=== PATIENT | male | born 1950 | race African-American/Black ===

== ENCOUNTER 2018-08-29 16:40 | Inpatient (IN) | payer MEDICARE, OTHER ==
[~2018-08-29] VITALS: Ht 180.3 cm; Wt 83.9 kg
[2018-08-29] MEDS ORDERED: ASPIRIN 325 MG TABLET PO ONE (17:00)
[2018-08-29 17:21] LABS: BASO % 1 % (0-3); EOS % 0 % (0-3); HEMATOCRIT 39.8 % (39.0-53.0); HEMOGLOBIN 13.5 g/dL (13.0-17.5); LYMPH # 1.3 x10^3/uL (1.0-4.8); LYMPH % 18 % (24-48); MEAN CORPUSCULAR HEMOGLOBIN 31 pg (25-35); MEAN CORPUSCULAR HGB CONC 34 g/dL (31-37); MEAN CORPUSCULAR VOLUME 93 fL (79-100); MONO # 0.5 x10^3/uL (0.0-1.1); MONO % 7 % (0-9); NEUT # 5.5 x10^3uL (1.8-7.7); NEUT % 75 % (31-73); PLATELET COUNT 163 x10^3/uL (140-400); RED CELL DISTRIBUTION WIDTH 14.3 % (11.5-14.5); WHITE BLOOD COUNT 7.3 x10^3/uL (4.0-11.0)
[2018-08-29 17:26] LABS: PROTHROMBIN TIME PATIENT 13.1 SEC (11.7-14.0)
--- NOTE | 2018-08-29 17:27 | RAD ---
CT HEAD WO CONTRAST Indication: WEAKNESS NO PREV RECENT PNA Exposure: One or more of the following individualized dose reduction techniques were utilized for this examination: 1. Automated exposure control 2. Adjustment of the mA and/or kV according to patient size 3. Use of iterative reconstruction technique. Comparison: None are available. Contrast: None FINDINGS: Posterior fossa is unremarkable. No evidence of acute intracranial hemorrhage or abnormal extra-axial fluid collection. No evidence of mass effect or midline shift. Extensive areas of hypoattenuation in the deep and subcortical white matter bilaterally. There are some more well-defined defects within the deep white matter, likely chronic lacunar infarcts. Mild generalized atrophic change with ventricular and sulcal enlargement. Visualized orbits are unremarkable. Visualized paranasal sinuses and mastoids are clear. No acute calvarial abnormality. Impression: 1. Atrophy. 2. White matter abnormalities bilaterally, nonspecific but most commonly are due to chronic small vessel ischemic disease in a patient of this age. Demyelinating disorder or vasculitis could also be considered. Electronically signed by: Marcos Pino MD (08/29/2018 5:23 PM) [facility]
[2018-08-29 17:37] LABS: CALCIUM 9.7 mg/dL (8.5-10.1); CREATININE 1.6 mg/dL (0.7-1.3); GFR 52.3; POTASSIUM 3.9 mmol/L (3.5-5.1)
[2018-08-29 17:37] LABS: INFLUENZA A PATIENT NEGATIVE (NEGATIVE); INFLUENZA B PATIENT NEGATIVE (NEGATIVE)
--- NOTE | 2018-08-29 17:45 | RAD ---
PROCEDURE: PORTABLE CHEST 1V CLINICAL INDICATION: ER PATIENT. WEAKNESS X2 DAYS. HX DIABETES. PRIOR XRAY. COMPARISON: None FINDINGS: No pneumothorax identified. Cardiac and mediastinal contours unremarkable. No pulmonary consolidation or acute airspace disease. No acute osseous abnormalities identified. IMPRESSION: No pulmonary consolidation or acute airspace disease. Electronically signed by: Glenn Rodriguez DO (08/29/2018 5:41 PM) [facility]
[2018-08-29 17:51] LABS: ALBUMIN 4.1 g/dL (3.4-5.0); ALBUMIN/GLOBULIN RATIO 1.3 (1.0-1.7); MAGNESIUM 1.8 mg/dL (1.8-2.4); TOTAL BILIRUBIN 0.8 mg/dL (0.2-1.0); TOTAL PROTEIN 7.3 g/dL (6.4-8.2)
[2018-08-29] MEDS ORDERED: FAMOTIDINE 20 MG/2 ML VIAL IVP ONE (18:30)
[2018-08-29] MEDS ORDERED: IV NORMAL SALINE 1000ML BAG 1,000 ML IV ONE ×2 (19:30→21:00)
--- NOTE | 2018-08-29 20:26 | PHYS DOC ---
Past Medical History Past Medical History: Diabetes-Type II, Pneumonia Past Surgical History: Other Additional Past Surgical Histo: UNKNOWN Alcohol Use: None Drug Use: None Adult General Chief Complaint Chief Complaint: WEAKNESS/GENERALIZED HPI HPI Patient is a 68 year old female with history of hypertension who presents today from home to be evaluated for generalized weakness for 2 days. Patient himself states he does not know why his son sent him to the emergency room. Son is not present. Patient states he was taking a shower and was not able to get out of the shower by himself and the son called 911. Patient appears slow in his speech, he states this is his normal. He is alert and oriented 4. EMS states patient was treated for pneumonia a couple weeks ago. Review of Systems Review of Systems Constitutional: Reports generalized weakness. Denies fever or chills [] Eyes: Denies change in visual acuity, redness, or eye pain [] HENT: Denies nasal congestion or sore throat [] Respiratory: Denies cough or shortness of breath [] Cardiovascular: No additional information not addressed in HPI [] GI: Denies abdominal pain, nausea, vomiting, bloody stools or diarrhea [] : Denies dysuria or hematuria [] Musculoskeletal: Denies back pain or joint pain [] Integument: Denies rash or skin lesions [] Neurologic: Denies headache, focal weakness or sensory changes [] All other systems were reviewed and found to be within normal limits, except as documented in this note. Current Medications Current Medications Current Medications Medications (Trade) Dose Ordered Sig/[facility] Start Time Stop Time Status Last Admin Dose Admin Aspirin (Yuliya Aspirin) 325 mg 1X ONCE 08/29/18 17:00 08/29/18 17:14 DC 08/29/18 18:01 325 MG Famotidine (Pepcid Vial) 20 mg 1X ONCE 08/29/18 18:30 08/29/18 18:31 DC 08/29/18 18:39 20 MG Allergies Allergies Allergies Coded Allergies Type Severity Reaction Last Updated Verified Penicillins Allergy Intermediate 08/29/18 Yes Physical Exam Physical Exam Constitutional: Well developed, well nourished, no acute distress, non-toxic appearance. [] HENT: Normocephalic, atraumatic, bilateral external ears normal, oropharynx moist, no oral exudates, nose normal. [] Eyes: PERRLA, EOMI, conjunctiva normal, no discharge. [] Neck: Normal range of motion, no tenderness, supple, no stridor. [] Cardiovascular:Heart rate regular rhythm, no murmur [] Lungs & Thorax: Bilateral breath sounds clear to auscultation [] Abdomen: Bowel sounds normal, soft, no tenderness, no masses, no pulsatile masses. [] Skin: Warm, dry, no erythema, no rash. [] Back: No tenderness, no CVA tenderness. [] Extremities: No tenderness, no cyanosis, no clubbing, ROM intact, no edema. [] Neurologic: Alert and oriented X 3, normal motor function, normal sensory function, no focal deficits noted. Cranial nerves II through XII intact Psychologic: Affect normal, judgement normal, mood normal. [] Current Patient Data Vital Signs Vital Signs Date Time Temp Pulse Resp B/P (MAP) Pulse Ox O2 Delivery O2 Flow Rate FiO2 08/29/18 18:00 84 16 97 08/29/18 16:43 97.4 120/61 (80) Room Air 97.4 Lab Values Laboratory Tests Test 08/29/18 16:54 08/29/18 16:57 White Blood Count 7.3 x10^3/uL (4.0-11.0) Red Blood Count 4.30 x10^6/uL (4.30-5.70) Hemoglobin 13.5 g/dL (13.0-17.5) Hematocrit 39.8 % (39.0-53.0) Mean Corpuscular Volume 93 fL (79-100) Mean Corpuscular Hemoglobin 31 pg (25-35) Mean Corpuscular Hemoglobin Concent 34 g/dL (31-37) Red Cell Distribution Width 14.3 % (11.5-14.5) Platelet Count 163 x10^3/uL (140-400) Neutrophils (%) (Auto) 75 % (31-73) H Lymphocytes (%) (Auto) 18 % (24-48) L Monocytes (%) (Auto) 7 % (0-9) Eosinophils (%) (Auto) 0 % (0-3) Basophils (%) (Auto) 1 % (0-3) Neutrophils # (Auto) 5.5 x10^3uL (1.8-7.7) Lymphocytes # (Auto) 1.3 x10^3/uL (1.0-4.8) Monocytes # (Auto) 0.5 x10^3/uL (0.0-1.1) Eosinophils # (Auto) 0.0 x10^3/uL (0.0-0.7) Basophils # (Auto) 0.0 x10^3/uL (0.0-0.2) Prothrombin Time 13.1 SEC (11.7-14.0) Prothrombin Time INR 1.0 (0.8-1.1) PTT 25 SEC (24-38) Sodium Level 140 mmol/L (136-145) Potassium Level 3.9 mmol/L (3.5-5.1) Chloride Level 100 mmol/L (98-107) Carbon Dioxide Level 27 mmol/L (21-32) Anion Gap 13 (6-14) Blood Urea Nitrogen 22 mg/dL (8-26) Creatinine 1.6 mg/dL (0.7-1.3) H Estimated GFR (Cockcroft-Gault) 52.3 BUN/Creatinine Ratio 14 (6-20) Glucose Level 237 mg/dL (70-99) H Lactic Acid Level 2.9 mmol/L (0.4-2.0) H Calcium Level 9.7 mg/dL (8.5-10.1) Magnesium Level 1.8 mg/dL (1.8-2.4) Total Bilirubin 0.8 mg/dL (0.2-1.0) Aspartate Amino Transferase (AST) 16 U/L (15-37) Alanine Aminotransferase (ALT) 34 U/L (16-63) Alkaline Phosphatase 125 U/L (46-116) H Troponin I Quantitative < 0.017 ng/mL (0.000-0.055) ND-Equ-T-Type Natriuretic Peptide 41 pg/mL (0-124) Total Protein 7.3 g/dL (6.4-8.2) Albumin 4.1 g/dL (3.4-5.0) Albumin/Globulin Ratio 1.3 (1.0-1.7) Procalcitonin < 0.10 ng/mL (0.00-0.10) Thyroid Stimulating Hormone (TSH) 0.772 uIU/mL (0.358-3.74) Influenza Type A Antigen Negative (NEGATIVE) Influenza Type B Antigen Negative (NEGATIVE) Laboratory Tests 08/29/18 16:54 Laboratory Tests 08/29/18 16:54 EKG EKG 17:[address] Mendez was noted for nonspecific ST elevations HR 84. Repeat EKG was done 20 minutes later, same results. Patient has no chest pain.[] Radiology/Procedures Radiology/Procedures []PROCEDURE: PORTABLE CHEST 1V PROCEDURE: PORTABLE CHEST 1V CLINICAL INDICATION: ER PATIENT. WEAKNESS X2 DAYS. HX DIABETES. PRIOR XRAY. COMPARISON: None FINDINGS: No pneumothorax identified. Cardiac and mediastinal contours unremarkable. No pulmonary consolidation or acute airspace disease. No acute osseous abnormalities identified. IMPRESSION: No pulmonary consolidation or acute airspace disease. Electronically signed by: Glenn Rodriguez DO (08/29/2018 5:41 PM) [employer] DICTATED and SIGNED BY: GLENN RODRIGUEZ DO DATE: 08/29/18 1738 PROCEDURE: CT HEAD WO CONTRAST CT HEAD WO CONTRAST Indication: WEAKNESS NO PREV RECENT PNA Exposure: One or more of the following individualized dose reduction techniques were utilized for this examination: 1. Automated exposure control 2. Adjustment of the mA and/or kV according to patient size 3. Use of iterative reconstruction technique. Comparison: None are available. Contrast: None FINDINGS: Posterior fossa is unremarkable. No evidence of acute intracranial hemorrhage or abnormal extra-axial fluid collection. No evidence of mass effect or midline shift. Extensive areas of hypoattenuation in the deep and subcortical white matter bilaterally. There are some more well-defined defects within the deep white matter, likely chronic lacunar infarcts. Mild generalized atrophic change with ventricular and sulcal enlargement. Visualized orbits are unremarkable. Visualized paranasal sinuses and mastoids are clear. No acute calvarial abnormality. Impression: 1. Atrophy. 2. White matter abnormalities bilaterally, nonspecific but most commonly are due to chronic small vessel ischemic disease in a patient of this age. Demyelinating disorder or vasculitis could also be considered. Electronically signed by: Marcos Pino MD (08/29/2018 5:23 PM) [facility] DICTATED and SIGNED BY: MARCOS PINO MD DATE: 08/29/18 5215 Course & Med Decision Making Course & Med Decision Making Pertinent Labs and Imaging studies reviewed. (See chart for details) This is a 68-year-old male patient presenting to the ED today complaining of generalized weakness for 2 days. Patient was sent to the ED by the son. See history of present illness. Patient himself states he has no complaints. EKG had nonspecific ST elevations. No reciprocal changes. Patient has not chest pain. No shortness of breath. CBC with no acute findings, CMP with creatinine of 1.6 normal BUN, glucose 237, patient has history of diabetes. Troponin is normal. Chest x-rays negative for any acute findings. Lactic is 2.9. I do not have any source for his elevated lactic, it could be dehydration. Started patient on IV fluids but being careful not to fluid overload him considering we do not know his baseline creatinine level. CT of the head is negative for any acute findings. Patient has remained alert and oriented son came to the ED later, he states patient has been weak for the last [address] vo who accepted patient for admission. Staff Physician Addendum: I was working in the ER during the course of this patient's visit. I was available for consultation as needed, but I was not directly involved in the care of this patient. reviewed 2 ekg's that are unchanged and trop neg after two days of symptoms. Dragon Disclaimer Dragon Disclaimer This electronic medical record was generated, in whole or in part, using a voice recognition dictation system. Departure Departure Impression: Primary Impression: Weakness Additional Impression: Acute electrocardiogram changes Disposition: 09 ADMITTED INPATIENT Condition: STABLE Referrals: UNKNOWN PCP NAME (PCP) Problem Qualifiers NADIR BURCH APRN Aug 29, 2018 20:26 RYAN MENDEZ MD Aug 30, 2018 07:02
[2018-08-29] MEDS ORDERED: MORPHINE SULFATE 4 MG/ML VIAL. IV PRN (20:30)
[2018-08-29] MEDS ORDERED: ONDANSETRON PF 4 MG/2 ML VIAL. IV PRN (20:30)
[2018-08-29] MEDS ORDERED: ACETAMINOPHEN 325 MG TABLET. PO PRN (20:30)
[2018-08-29 20:45] VITALS: BP 143/73
--- NOTE | 2018-08-29 22:03 | PDOC1 ---
History and Physical Date of Admission Date of Admission DATE: 08/29/18 TIME: 21:57 History of Present Illness History of Present Illness Mr. Forte is a 68 admit with marked weakness, difficulty walkign, amdit from home today, came to be evaluated for generalized weakness for 2 days. He lives with his son, and he had trouble getting out of the shower. he reports having PNA recently, and then having a cold, then he just cant turn the corner and feel better. still weakness He is alittle confused as to some of the details, not sure but is oriented 4/4 Past Medical History GI: No pertinent hx, Other Hepatobiliary: No pertinent hx Psych: No pertinent hx, Other Musculoskeletal: low back pain Rheumatologic: No pertinent hx Family History Family History: Hypertension Social History Smoke: No Current Problem List Problem List Problems Medical Problems: (1) Acute electrocardiogram changes Status: Acute Current Medications Current Medications Current Medications Aspirin (Yuliya Aspirin) 325 mg 1X ONCE PO Last administered on 08/29/18at 18: 01; Start 08/29/18 at 17:00; Stop 08/29/18 at 17:14; Status DC Famotidine (Pepcid Vial) 20 mg 1X ONCE IVP Last administered on 08/29/18at 18: 39; Start 08/29/18 at 18:30; Stop 08/29/18 at 18:31; Status DC Sodium Chloride 1,000 ml @ 1,000 mls/hr 1X ONCE IV Last administered on 08/29at 19:30; Start 08/29/18 at 19:30; Stop 08/29/18 at 20:29; Status DC Ondansetron HCl (Zofran) 4 mg PRN Q8HRS PRN IV NAUSEA/VOMITING; Start at 20:30; Stop 08/30/18 at 20:29 Morphine Sulfate (Morphine Sulfate) 2 mg PRN Q2HR PRN IV PAIN; Start 08/29/18 at 20:30; Stop 08/30/18 at 20:29 Acetaminophen (Tylenol) 650 mg PRN Q4HRS PRN PO FEVER; Start 08/29/18 at 20:30 ; Stop 08/30/18 at 20:29 Sodium Chloride 1,000 ml @ 100 mls/hr 1X ONCE IV ; Start 08/29/18 at 21:00; Stop 08/30/18 at 06:59 Ciprofloxacin/ Dextrose 200 ml @ 200 mls/hr Q12HR IV ; Start 08/29/18 at 21:00 Allergies Allergies: Coded Allergies: Penicillins (Verified Allergy, Intermediate, 08/29/18) ROS General: YES: Chills, Fatigue, Malaise, Appetite PSYCHOLOGICAL ROS: YES: Memory difficulties, Sleep disturbances Eyes: No Blurry vision, No Decreased vision, No Double vision, No Dry eyes, No Excessive tearing, No Eye Pain, No Itchy Eyes, No Loss of vision, No Photophobia , No Scotomata, No Uses contacts, No Uses glasses, No Other HEENT: No: Heacaches, Visual Changes, Hearing change, Nasal congestion, Nasal discharge, Oral lesions, Sinus pain, Sore Throat, Epistaxis, Sneezing, Snoring, Tinnitus, Vertigo, Vocal changes, Other Respiratory: No: Cough, Hemoptysis, Orthopnea, Pleuritic Pain, Shortness of breath, SOB with excertion, Sputum Changes, Stridor, Tachypnea, Wheezing, Other Cardiovascular: No Chest Pain, No Palpitations, No Orthopnea, No Paroxysmal Noc. Dyspnea, No Edema, No Lt Headedness, No Other Gastrointestinal: Yes Nausea; No Vomiting, No Abdominal Pain, No Diarrhea, No Constipation, No Melena, No Hematochezia, No Other Genitourinary: No Dysuria, No Frequency, No Incontinence, No Hematuria, No Retention, No Discharge, No Urgency, No Pain, No Flank Pain, No Other, No , No , No , No , No , No , No Musculoskeletal: Yes Joint Stiffness; No Gait Disturbance, No Joint Pain, No Joint Swelling, No Muscle Pain, No Muscular Weakness, No Pain In:, No Swelling In:, No Other Neurological: Yes Gait Disturbance, Yes Impaired Coord/balance, Yes Weakness; No Behavorial Changes, No Bowel/Bladder ControlChng, No Confusion, No Dizziness, No Headaches, No Memory Loss, No Numbness/Tingling, No Seizures, No Speech Problems, No Tremors, No Visual Changes, No Other Skin: Yes Dry Skin; No Eczema, No Hair Changes, No Lumps, No Mole Changes, No Mottling, No Nail Changes, No Pruritus, No Rash, No Skin Lesion Changes, No Other, No Acne Physical Exam Physical Exam freq. hiccoughs General: Alert, No acute distress HEENT: Mucous membr. moist/pink Lungs: Clear to auscultation Heart: no gallops Abdomen: Normal bowel sounds, Soft Rectal Exam: not examined Extremities: No clubbing, No edema Skin: No rashes, No significant lesion Neuro: Sensation intact Vitals Vitals Vital Signs Date Time Temp Pulse Resp B/P (MAP) Pulse Ox O2 Delivery O2 Flow Rate FiO2 08/29/18 20:45 98.7 86 20 143/73 (96) 98 Room Air 98.7 Labs Labs Laboratory Tests Test 08/29/18 16:54 08/29/18 16:57 08/29/18 20:44 08/29/18 21:05 White Blood Count 7.3 x10^3/uL (4.0-11.0) Red Blood Count 4.30 x10^6/uL (4.30-5.70) Hemoglobin 13.5 g/dL (13.0-17.5) Hematocrit 39.8 % (39.0-53.0) Mean Corpuscular Volume 93 fL (79-100) Mean Corpuscular Hemoglobin 31 pg (25-35) Mean Corpuscular Hemoglobin Concent 34 g/dL (31-37) Red Cell Distribution Width 14.3 % (11.5-14.5) Platelet Count 163 x10^3/uL (140-400) Neutrophils (%) (Auto) 75 % (31-73) Lymphocytes (%) (Auto) 18 % (24-48) Monocytes (%) (Auto) 7 % (0-9) Eosinophils (%) (Auto) 0 % (0-3) Basophils (%) (Auto) 1 % (0-3) Neutrophils # (Auto) 5.5 x10^3uL (1.8-7.7) Lymphocytes # (Auto) 1.3 x10^3/uL (1.0-4.8) Monocytes # (Auto) 0.5 x10^3/uL (0.0-1.1) Eosinophils # (Auto) 0.0 x10^3/uL (0.0-0.7) Basophils # (Auto) 0.0 x10^3/uL (0.0-0.2) Prothrombin Time 13.1 SEC (11.7-14.0) Prothromb Time International Ratio 1.0 (0.8-1.1) Activated Partial Thromboplast Time 25 SEC (24-38) Sodium Level 140 mmol/L (136-145) Potassium Level 3.9 mmol/L (3.5-5.1) Chloride Level 100 mmol/L (98-107) Carbon Dioxide Level 27 mmol/L (21-32) Anion Gap 13 (6-14) Blood Urea Nitrogen 22 mg/dL (8-26) Creatinine 1.6 mg/dL (0.7-1.3) Estimated GFR (Cockcroft-Gault) 52.3 BUN/Creatinine Ratio 14 (6-20) Glucose Level 237 mg/dL (70-99) Lactic Acid Level 2.9 mmol/L (0.4-2.0) 2.6 mmol/L (0.4-2.0) Calcium Level 9.7 mg/dL (8.5-10.1) Magnesium Level 1.8 mg/dL (1.8-2.4) Total Bilirubin 0.8 mg/dL (0.2-1.0) Aspartate Amino Transf (AST/SGOT) 16 U/L (15-37) Alanine Aminotransferase (ALT/SGPT) 34 U/L (16-63) Alkaline Phosphatase 125 U/L (46-116) Troponin I Quantitative < 0.017 ng/mL (0.000-0.055) FP-Vjy-L-Type Natriuretic Peptide 41 pg/mL (0-124) Total Protein 7.3 g/dL (6.4-8.2) Albumin 4.1 g/dL (3.4-5.0) Albumin/Globulin Ratio 1.3 (1.0-1.7) Procalcitonin < 0.10 ng/mL (0.00-0.10) Thyroid Stimulating Hormone (TSH) 0.772 uIU/mL (0.358-3.74) Influenza Type A Antigen Negative (NEGATIVE) Influenza Type B Antigen Negative (NEGATIVE) Glucose (Fingerstick) 141 mg/dL (70-99) Laboratory Tests Test 08/29/18 16:54 08/29/18 16:57 08/29/18 20:44 08/29/18 21:05 White Blood Count 7.3 x10^3/uL (4.0-11.0) Red Blood Count 4.30 x10^6/uL (4.30-5.70) Hemoglobin 13.5 g/dL (13.0-17.5) Hematocrit 39.8 % (39.0-53.0) Mean Corpuscular Volume 93 fL (79-100) Mean Corpuscular Hemoglobin 31 pg (25-35) Mean Corpuscular Hemoglobin Concent 34 g/dL (31-37) Red Cell Distribution Width 14.3 % (11.5-14.5) Platelet Count 163 x10^3/uL (140-400) Neutrophils (%) (Auto) 75 % (31-73) Lymphocytes (%) (Auto) 18 % (24-48) Monocytes (%) (Auto) 7 % (0-9) Eosinophils (%) (Auto) 0 % (0-3) Basophils (%) (Auto) 1 % (0-3) Neutrophils # (Auto) 5.5 x10^3uL (1.8-7.7) Lymphocytes # (Auto) 1.3 x10^3/uL (1.0-4.8) Monocytes # (Auto) 0.5 x10^3/uL (0.0-1.1) Eosinophils # (Auto) 0.0 x10^3/uL (0.0-0.7) Basophils # (Auto) 0.0 x10^3/uL (0.0-0.2) Prothrombin Time 13.1 SEC (11.7-14.0) Prothromb Time International Ratio 1.0 (0.8-1.1) Activated Partial Thromboplast Time 25 SEC (24-38) Sodium Level 140 mmol/L (136-145) Potassium Level 3.9 mmol/L (3.5-5.1) Chloride Level 100 mmol/L (98-107) Carbon Dioxide Level 27 mmol/L (21-32) Anion Gap 13 (6-14) Blood Urea Nitrogen 22 mg/dL (8-26) Creatinine 1.6 mg/dL (0.7-1.3) Estimated GFR (Cockcroft-Gault) 52.3 BUN/Creatinine Ratio 14 (6-20) Glucose Level 237 mg/dL (70-99) Lactic Acid Level 2.9 mmol/L (0.4-2.0) 2.6 mmol/L (0.4-2.0) Calcium Level 9.7 mg/dL (8.5-10.1) Magnesium Level 1.8 mg/dL (1.8-2.4) Total Bilirubin 0.8 mg/dL (0.2-1.0) Aspartate Amino Transf (AST/SGOT) 16 U/L (15-37) Alanine Aminotransferase (ALT/SGPT) 34 U/L (16-63) Alkaline Phosphatase 125 U/L (46-116) Troponin I Quantitative < 0.017 ng/mL (0.000-0.055) HF-Wbj-X-Type Natriuretic Peptide 41 pg/mL (0-124) Total Protein 7.3 g/dL (6.4-8.2) Albumin 4.1 g/dL (3.4-5.0) Albumin/Globulin Ratio 1.3 (1.0-1.7) Procalcitonin < 0.10 ng/mL (0.00-0.10) Thyroid Stimulating Hormone (TSH) 0.772 uIU/mL (0.358-3.74) Influenza Type A Antigen Negative (NEGATIVE) Influenza Type B Antigen Negative (NEGATIVE) Glucose (Fingerstick) 141 mg/dL (70-99) VTE Prophylaxis Ordered VTE Prophylaxis Devices: No VTE Pharmacological Prophylaxi: Yes Assessment/Plan Assessment/Plan weakness, and debility, recent illness, prior PNA hiccough, intractable, every few seconds PT and OT eval lactic? seizure? no pain, no sign of SIRS supportive care ALLISON KRUSE MD Aug 29, 2018 22:03
[2018-08-29] MEDS: chlorproMAZINE 25 MG TABLET PO PRN (22:21)
[2018-08-29] MEDS: CIPROFLOXACIN 400MG PREMIX 200 ML IV SCH (22:23)
[2018-08-29] MEDS: ENOXAPARIN 40 MG/0.4 ML SYRINGE. SQ SCH (22:26)
--- NOTE | 2018-08-29 22:43 | EKG ---
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
--- NOTE | 2018-08-29 22:43 | EKG ---
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
[2018-08-29] MEDS ORDERED: METF10007 PO (22:48)
[2018-08-29] MEDS ORDERED: ASPI81TA50 PO (22:48)
[2018-08-29 23:13] VITALS: BP 147/73
[2018-08-30] VITALS (7 sets, daily range): BP systolic 112–159; BP diastolic 61–90
[2018-08-30 01:02] LABS: BASO % 0 % (0-3); EOS % 0 % (0-3); HEMATOCRIT 35.7 % (39.0-53.0); HEMOGLOBIN 12.3 g/dL (13.0-17.5); LYMPH # 1.2 x10^3/uL (1.0-4.8); LYMPH % 14 % (24-48); MEAN CORPUSCULAR HEMOGLOBIN 32 pg (25-35); MEAN CORPUSCULAR HGB CONC 34 g/dL (31-37); MEAN CORPUSCULAR VOLUME 92 fL (79-100); MONO # 0.8 x10^3/uL (0.0-1.1); MONO % 9 % (0-9); NEUT # 6.7 x10^3uL (1.8-7.7); NEUT % 77 % (31-73); PLATELET COUNT 144 x10^3/uL (140-400); RED BLOOD COUNT 3.87 x10^6/uL (4.30-5.70); RED CELL DISTRIBUTION WIDTH 13.8 % (11.5-14.5); WHITE BLOOD COUNT 8.6 x10^3/uL (4.0-11.0)
[2018-08-30 01:08] LABS: ALBUMIN 3.2 g/dL (3.4-5.0); CALCIUM 8.8 mg/dL (8.5-10.1); CREATININE 1.3 mg/dL (0.7-1.3); GFR 66.4; POTASSIUM 3.6 mmol/L (3.5-5.1); TOTAL BILIRUBIN 0.6 mg/dL (0.2-1.0); TOTAL PROTEIN 6.3 g/dL (6.4-8.2)
[2018-08-30] MEDS: CIPROFLOXACIN 400MG PREMIX 200 ML IV SCH ×2 (08:04→21:27)
[2018-08-30] MEDS ORDERED: LIPITOR80 MG PO (08:35)
[2018-08-30] MEDS ORDERED: GLIP10TA13 PO (08:35)
--- NOTE | 2018-08-30 12:33 | PDOC2 ---
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 He does not known why his son sent him to ED, It was noted that he was slow in his speech no notation of any visual disturbances or unilateral weakness. The son is in room and confirmed that pt was in the shower got dizzy and fell with no traumatic injury. No lost of consciousness but appears pt has poor recall. He lives with his sone. No cp, palpitations or complains of SOA. Reports no prior hx of CAD, arrhythmias. He has in in 03/2018 where he was treated for pneumonia and was told that he may have had a stroke in the past. He is on ASA, lipitor and DM med. No notation of hypoglycemia when he had the presyncopal episode. He does not take any BP meds but his BP has been controlled. His hydration adequacy could not be ascertained. No nausea or vomiting or diarrhea and no recent fever or chills. PAST MEDICAL HISTORY Cardiovascular: Hyperlipidemia Pulmonary: Pneumonia CENTRAL NERVOUS SYSTEM: CVA GI: No pertinent hx Heme/Onc: No pertinent hx Hepatobiliary: No pertinent hx Psych: No pertinent hx Musculoskeletal: Osteoarthritis Rheumatologic: No pertinent hx Infectious disease: No pertinent hx ENT: No pertinent hx Renal/: No pertinent hx Endocrine: Diabetes (2) PAST SURGICAL HISTORY Past Surgical History: Cataract Removal FAMILY HISTORY Family History noncontributory to CV SOCIAL HISTORY Smoke: Quit (remotely) ALCOHOL: none Drugs: None Lives: with Family CURRENT MEDICATIONS CURRENT MEDICATIONS Current Medications Medications (Trade) Dose Ordered Sig/Jayant Route PRN Reason Start Time Stop Time Status Last Admin Dose Admin Aspirin (Yuliya Aspirin) 325 mg 1X ONCE PO 08/29/18 17:00 08/29/18 17:14 DC 08/29/18 18:01 Famotidine (Pepcid Vial) 20 mg 1X ONCE IVP 08/29/18 18:30 08/29/18 18:31 DC 08/29/18 18:39 Sodium Chloride 1,000 ml @ 1,000 mls/hr 1X ONCE IV 08/29/18 19:30 08/29/18 20:29 DC 08/29/18 19:30 Sodium Chloride 1,000 ml @ 100 mls/hr 1X ONCE IV 08/29/18 21:00 08/30/18 06:59 DC 08/29/18 22:21 Ciprofloxacin/ Dextrose 200 ml @ 200 mls/hr Q12HR IV 08/29/18 21:00 08/30/18 08:04 Chlorpromazine HCl (Thorazine) 25 mg PRN Q6HRS PRN PO HICCUPS 08/29/18 22:00 08/29/18 22:21 Enoxaparin Sodium (Lovenox 40mg Syringe) 40 mg Q24H SQ 08/29/18 22:00 08/29/18 22:26 ALLERGIES ALLERGIES: Coded Allergies: Penicillins (Verified Allergy, Intermediate, 08/29/18) ROS Review of System limited poor historian PHYSICAL EXAM General: Alert, Oriented X3, Cooperative, No acute distress HEENT: Atraumatic, Mucous membr. moist/pink Lungs: Clear to auscultation, Normal air movement Heart: Regular rate (S), Normal S1, Normal S2, Other (3/6 systolic murmur to LLS border) Abdomen: Soft, No tenderness Extremities: No cyanosis, No edema Skin: No breakdown, No significant lesion Neuro: Normal speech, Sensation intact Psych/Mental Status: Mental status NL, Mood NL MUSCULOSKELETAL: Osteoarthritic changes both hands VITALS VITALS Vital Signs Date Time Temp Pulse Resp B/P (MAP) Pulse Ox O2 Delivery O2 Flow Rate FiO2 08/30/18 07:29 Room Air 08/30/18 07:00 98.7 79 16 133/66 (88) 95 98.7 LABS Lab: Laboratory Tests Test 08/29/18 16:54 08/29/18 16:57 08/29/18 20:44 08/29/18 21:05 White Blood Count 7.3 x10^3/uL (4.0-11.0) Red Blood Count 4.30 x10^6/uL (4.30-5.70) Hemoglobin 13.5 g/dL (13.0-17.5) Hematocrit 39.8 % (39.0-53.0) Mean Corpuscular Volume 93 fL (79-100) Mean Corpuscular Hemoglobin 31 pg (25-35) Mean Corpuscular Hemoglobin Concent 34 g/dL (31-37) Red Cell Distribution Width 14.3 % (11.5-14.5) Platelet Count 163 x10^3/uL (140-400) Neutrophils (%) (Auto) 75 % (31-73) Lymphocytes (%) (Auto) 18 % (24-48) Monocytes (%) (Auto) 7 % (0-9) Eosinophils (%) (Auto) 0 % (0-3) Basophils (%) (Auto) 1 % (0-3) Neutrophils # (Auto) 5.5 x10^3uL (1.8-7.7) Lymphocytes # (Auto) 1.3 x10^3/uL (1.0-4.8) Monocytes # (Auto) 0.5 x10^3/uL (0.0-1.1) Eosinophils # (Auto) 0.0 x10^3/uL (0.0-0.7) Basophils # (Auto) 0.0 x10^3/uL (0.0-0.2) Prothrombin Time 13.1 SEC (11.7-14.0) Prothromb Time International Ratio 1.0 (0.8-1.1) Activated Partial Thromboplast Time 25 SEC (24-38) Sodium Level 140 mmol/L (136-145) Potassium Level 3.9 mmol/L (3.5-5.1) Chloride Level 100 mmol/L (98-107) Carbon Dioxide Level 27 mmol/L (21-32) Anion Gap 13 (6-14) Blood Urea Nitrogen 22 mg/dL (8-26) Creatinine 1.6 mg/dL (0.7-1.3) Estimated GFR (Cockcroft-Gault) 52.3 BUN/Creatinine Ratio 14 (6-20) Glucose Level 237 mg/dL (70-99) Lactic Acid Level 2.9 mmol/L (0.4-2.0) 2.6 mmol/L (0.4-2.0) Calcium Level 9.7 mg/dL (8.5-10.1) Magnesium Level 1.8 mg/dL (1.8-2.4) Total Bilirubin 0.8 mg/dL (0.2-1.0) Aspartate Amino Transf (AST/SGOT) 16 U/L (15-37) Alanine Aminotransferase (ALT/SGPT) 34 U/L (16-63) Alkaline Phosphatase 125 U/L (46-116) Troponin I Quantitative < 0.017 ng/mL (0.000-0.055) FN-Mqg-A-Type Natriuretic Peptide 41 pg/mL (0-124) Total Protein 7.3 g/dL (6.4-8.2) Albumin 4.1 g/dL (3.4-5.0) Albumin/Globulin Ratio 1.3 (1.0-1.7) Procalcitonin < 0.10 ng/mL (0.00-0.10) Thyroid Stimulating Hormone (TSH) 0.772 uIU/mL (0.358-3.74) Influenza Type A Antigen Negative (NEGATIVE) Influenza Type B Antigen Negative (NEGATIVE) Glucose (Fingerstick) 141 mg/dL (70-99) Test 08/30/18 00:45 08/30/18 07:23 08/30/18 11:58 White Blood Count 8.6 x10^3/uL (4.0-11.0) Red Blood Count 3.87 x10^6/uL (4.30-5.70) Hemoglobin 12.3 g/dL (13.0-17.5) Hematocrit 35.7 % (39.0-53.0) Mean Corpuscular Volume 92 fL (79-100) Mean Corpuscular Hemoglobin 32 pg (25-35) Mean Corpuscular Hemoglobin Concent 34 g/dL (31-37) Red Cell Distribution Width 13.8 % (11.5-14.5) Platelet Count 144 x10^3/uL (140-400) Neutrophils (%) (Auto) 77 % (31-73) Lymphocytes (%) (Auto) 14 % (24-48) Monocytes (%) (Auto) 9 % (0-9) Eosinophils (%) (Auto) 0 % (0-3) Basophils (%) (Auto) 0 % (0-3) Neutrophils # (Auto) 6.7 x10^3uL (1.8-7.7) Lymphocytes # (Auto) 1.2 x10^3/uL (1.0-4.8) Monocytes # (Auto) 0.8 x10^3/uL (0.0-1.1) Eosinophils # (Auto) 0.0 x10^3/uL (0.0-0.7) Basophils # (Auto) 0.0 x10^3/uL (0.0-0.2) Sodium Level 140 mmol/L (136-145) Potassium Level 3.6 mmol/L (3.5-5.1) Chloride Level 104 mmol/L (98-107) Carbon Dioxide Level 27 mmol/L (21-32) Anion Gap 9 (6-14) Blood Urea Nitrogen 21 mg/dL (8-26) Creatinine 1.3 mg/dL (0.7-1.3) Estimated GFR (Cockcroft-Gault) 66.4 BUN/Creatinine Ratio 16 (6-20) Glucose Level 154 mg/dL (70-99) Lactic Acid Level 1.4 mmol/L (0.4-2.0) Calcium Level 8.8 mg/dL (8.5-10.1) Total Bilirubin 0.6 mg/dL (0.2-1.0) Aspartate Amino Transf (AST/SGOT) 13 U/L (15-37) Alanine Aminotransferase (ALT/SGPT) 28 U/L (16-63) Alkaline Phosphatase 103 U/L (46-116) Total Protein 6.3 g/dL (6.4-8.2) Albumin 3.2 g/dL (3.4-5.0) Albumin/Globulin Ratio 1.0 (1.0-1.7) Glucose (Fingerstick) 115 mg/dL (70-99) 159 mg/dL (70-99) ASSESSMENT/PLAN ASSESSMENT/PLAN 1. Abnormal EKG: SR with LVH/LAFB, no cardiac symptoms. 2. PSVT: x1 brief episode otherwise maintain SR with good BP control without antiHTN 3. Presyncope with nontraumatic fall: could be related to poor hydration or arrhythmia. 4. DM2: per PCP 5. Possible dementia 6. Hx of CVA Recommendations 1. Will obtain TTE for completion otherwise no acute cardiac issues. 2. Will arrange for outpt event monitor and will ascertain any rhythm issues 3. Follow up in office in 4 weeks 4. Maintain hydration adequacy. Check orthostatic readings. Check UA. CALIXTO SILVA MD 08/30/18 7917: CARDIAC CONSULT ASSESSMENT/PLAN ASSESSMENT/PLAN Patient seen and examined. Agree with CARD MAKER's assessment and plan. EKG showed sinus rhythm with LVH 2D echo showed normal LV function Agree with outpatient event monitor to rule out any significant arrhythmias Thank you for your consultation ELIZA FRANCIS APRN Aug 30, 2018 12:33 CALIXTO SILVA MD Aug 30, 2018 22:07
--- NOTE | 2018-08-30 13:13 | PDOC ---
PROGRESS NOTES Chief Complaint Chief Complaint Weakness, and debility, recent illness, prior PNA Hiccough, intractable, every few seconds Abnormal EKG: SR with LVH/LAFB, no cardiac symptoms. PSVT: x1 brief episode otherwise maintain SR with good BP control without antiHTN Presyncope with nontraumatic fall: could be related to poor hydration or arrhythmia. DM2: per PCP Possible dementia Hx of CVA History of Present Illness History of Present Illness Pt seen and examined with PT and RN and son Vitals Vitals Vital Signs Date Time Temp Pulse Resp B/P (MAP) Pulse Ox O2 Delivery O2 Flow Rate FiO2 08/30/18 07:29 Room Air 08/30/18 07:00 98.7 79 16 133/66 (88) 95 98.7 Physical Exam General: Cooperative, No acute distress, Other (weak) Heart: Regular rate (S), Normal S1, Normal S2, Other (3/6 systolic murmur to LLS border) Lungs: Clear Abdomen: Soft, No tenderness Extremities: No cyanosis, No edema Skin: No breakdown, No significant lesion Labs LABS Laboratory Tests Test 08/29/18 16:54 08/29/18 16:57 08/29/18 20:44 08/29/18 21:05 White Blood Count 7.3 x10^3/uL (4.0-11.0) Red Blood Count 4.30 x10^6/uL (4.30-5.70) Hemoglobin 13.5 g/dL (13.0-17.5) Hematocrit 39.8 % (39.0-53.0) Mean Corpuscular Volume 93 fL (79-100) Mean Corpuscular Hemoglobin 31 pg (25-35) Mean Corpuscular Hemoglobin Concent 34 g/dL (31-37) Red Cell Distribution Width 14.3 % (11.5-14.5) Platelet Count 163 x10^3/uL (140-400) Neutrophils (%) (Auto) 75 % (31-73) Lymphocytes (%) (Auto) 18 % (24-48) Monocytes (%) (Auto) 7 % (0-9) Eosinophils (%) (Auto) 0 % (0-3) Basophils (%) (Auto) 1 % (0-3) Neutrophils # (Auto) 5.5 x10^3uL (1.8-7.7) Lymphocytes # (Auto) 1.3 x10^3/uL (1.0-4.8) Monocytes # (Auto) 0.5 x10^3/uL (0.0-1.1) Eosinophils # (Auto) 0.0 x10^3/uL (0.0-0.7) Basophils # (Auto) 0.0 x10^3/uL (0.0-0.2) Prothrombin Time 13.1 SEC (11.7-14.0) Prothromb Time International Ratio 1.0 (0.8-1.1) Activated Partial Thromboplast Time 25 SEC (24-38) Sodium Level 140 mmol/L (136-145) Potassium Level 3.9 mmol/L (3.5-5.1) Chloride Level 100 mmol/L (98-107) Carbon Dioxide Level 27 mmol/L (21-32) Anion Gap 13 (6-14) Blood Urea Nitrogen 22 mg/dL (8-26) Creatinine 1.6 mg/dL (0.7-1.3) Estimated GFR (Cockcroft-Gault) 52.3 BUN/Creatinine Ratio 14 (6-20) Glucose Level 237 mg/dL (70-99) Lactic Acid Level 2.9 mmol/L (0.4-2.0) 2.6 mmol/L (0.4-2.0) Calcium Level 9.7 mg/dL (8.5-10.1) Magnesium Level 1.8 mg/dL (1.8-2.4) Total Bilirubin 0.8 mg/dL (0.2-1.0) Aspartate Amino Transf (AST/SGOT) 16 U/L (15-37) Alanine Aminotransferase (ALT/SGPT) 34 U/L (16-63) Alkaline Phosphatase 125 U/L (46-116) Troponin I Quantitative < 0.017 ng/mL (0.000-0.055) XV-Whk-Q-Type Natriuretic Peptide 41 pg/mL (0-124) Total Protein 7.3 g/dL (6.4-8.2) Albumin 4.1 g/dL (3.4-5.0) Albumin/Globulin Ratio 1.3 (1.0-1.7) Procalcitonin < 0.10 ng/mL (0.00-0.10) Thyroid Stimulating Hormone (TSH) 0.772 uIU/mL (0.358-3.74) Influenza Type A Antigen Negative (NEGATIVE) Influenza Type B Antigen Negative (NEGATIVE) Glucose (Fingerstick) 141 mg/dL (70-99) Test 08/30/18 00:45 08/30/18 07:23 08/30/18 11:58 White Blood Count 8.6 x10^3/uL (4.0-11.0) Red Blood Count 3.87 x10^6/uL (4.30-5.70) Hemoglobin 12.3 g/dL (13.0-17.5) Hematocrit 35.7 % (39.0-53.0) Mean Corpuscular Volume 92 fL (79-100) Mean Corpuscular Hemoglobin 32 pg (25-35) Mean Corpuscular Hemoglobin Concent 34 g/dL (31-37) Red Cell Distribution Width 13.8 % (11.5-14.5) Platelet Count 144 x10^3/uL (140-400) Neutrophils (%) (Auto) 77 % (31-73) Lymphocytes (%) (Auto) 14 % (24-48) Monocytes (%) (Auto) 9 % (0-9) Eosinophils (%) (Auto) 0 % (0-3) Basophils (%) (Auto) 0 % (0-3) Neutrophils # (Auto) 6.7 x10^3uL (1.8-7.7) Lymphocytes # (Auto) 1.2 x10^3/uL (1.0-4.8) Monocytes # (Auto) 0.8 x10^3/uL (0.0-1.1) Eosinophils # (Auto) 0.0 x10^3/uL (0.0-0.7) Basophils # (Auto) 0.0 x10^3/uL (0.0-0.2) Sodium Level 140 mmol/L (136-145) Potassium Level 3.6 mmol/L (3.5-5.1) Chloride Level 104 mmol/L (98-107) Carbon Dioxide Level 27 mmol/L (21-32) Anion Gap 9 (6-14) Blood Urea Nitrogen 21 mg/dL (8-26) Creatinine 1.3 mg/dL (0.7-1.3) Estimated GFR (Cockcroft-Gault) 66.4 BUN/Creatinine Ratio 16 (6-20) Glucose Level 154 mg/dL (70-99) Lactic Acid Level 1.4 mmol/L (0.4-2.0) Calcium Level 8.8 mg/dL (8.5-10.1) Total Bilirubin 0.6 mg/dL (0.2-1.0) Aspartate Amino Transf (AST/SGOT) 13 U/L (15-37) Alanine Aminotransferase (ALT/SGPT) 28 U/L (16-63) Alkaline Phosphatase 103 U/L (46-116) Total Protein 6.3 g/dL (6.4-8.2) Albumin 3.2 g/dL (3.4-5.0) Albumin/Globulin Ratio 1.0 (1.0-1.7) Glucose (Fingerstick) 115 mg/dL (70-99) 159 mg/dL (70-99) Review of Systems Review of Systems co weakness co decreased memory Assessment and Plan Assessmemt and Plan Problems Medical Problems: (1) Acute electrocardiogram changes Status: Acute Weakness, and debility, recent illness, prior PNA Hiccough, intractable, every few seconds Abnormal EKG: SR with LVH/LAFB, no cardiac symptoms. PSVT: x1 brief episode otherwise maintain SR with good BP control without antiHTN Presyncope with nontraumatic fall: could be related to poor hydration or arrhythmia. DM2: per PCP Possible dementia Hx of CVA Plan Neuro consult SNU eval Labs Home meds PTOT Cardio following Needs LTC? Comment Review of Relevant I have reviewed the following items jessica (where applicable) has been applied. Labs Laboratory Tests Test 08/29/18 16:54 08/29/18 16:57 08/29/18 20:44 08/29/18 21:05 White Blood Count 7.3 x10^3/uL (4.0-11.0) Red Blood Count 4.30 x10^6/uL (4.30-5.70) Hemoglobin 13.5 g/dL (13.0-17.5) Hematocrit 39.8 % (39.0-53.0) Mean Corpuscular Volume 93 fL (79-100) Mean Corpuscular Hemoglobin 31 pg (25-35) Mean Corpuscular Hemoglobin Concent 34 g/dL (31-37) Red Cell Distribution Width 14.3 % (11.5-14.5) Platelet Count 163 x10^3/uL (140-400) Neutrophils (%) (Auto) 75 % (31-73) Lymphocytes (%) (Auto) 18 % (24-48) Monocytes (%) (Auto) 7 % (0-9) Eosinophils (%) (Auto) 0 % (0-3) Basophils (%) (Auto) 1 % (0-3) Neutrophils # (Auto) 5.5 x10^3uL (1.8-7.7) Lymphocytes # (Auto) 1.3 x10^3/uL (1.0-4.8) Monocytes # (Auto) 0.5 x10^3/uL (0.0-1.1) Eosinophils # (Auto) 0.0 x10^3/uL (0.0-0.7) Basophils # (Auto) 0.0 x10^3/uL (0.0-0.2) Prothrombin Time 13.1 SEC (11.7-14.0) Prothromb Time International Ratio 1.0 (0.8-1.1) Activated Partial Thromboplast Time 25 SEC (24-38) Sodium Level 140 mmol/L (136-145) Potassium Level 3.9 mmol/L (3.5-5.1) Chloride Level 100 mmol/L (98-107) Carbon Dioxide Level 27 mmol/L (21-32) Anion Gap 13 (6-14) Blood Urea Nitrogen 22 mg/dL (8-26) Creatinine 1.6 mg/dL (0.7-1.3) Estimated GFR (Cockcroft-Gault) 52.3 BUN/Creatinine Ratio 14 (6-20) Glucose Level 237 mg/dL (70-99) Lactic Acid Level 2.9 mmol/L (0.4-2.0) 2.6 mmol/L (0.4-2.0) Calcium Level 9.7 mg/dL (8.5-10.1) Magnesium Level 1.8 mg/dL (1.8-2.4) Total Bilirubin 0.8 mg/dL (0.2-1.0) Aspartate Amino Transf (AST/SGOT) 16 U/L (15-37) Alanine Aminotransferase (ALT/SGPT) 34 U/L (16-63) Alkaline Phosphatase 125 U/L (46-116) Troponin I Quantitative < 0.017 ng/mL (0.000-0.055) NM-Wfz-Z-Type Natriuretic Peptide 41 pg/mL (0-124) Total Protein 7.3 g/dL (6.4-8.2) Albumin 4.1 g/dL (3.4-5.0) Albumin/Globulin Ratio 1.3 (1.0-1.7) Procalcitonin < 0.10 ng/mL (0.00-0.10) Thyroid Stimulating Hormone (TSH) 0.772 uIU/mL (0.358-3.74) Influenza Type A Antigen Negative (NEGATIVE) Influenza Type B Antigen Negative (NEGATIVE) Glucose (Fingerstick) 141 mg/dL (70-99) Test 08/30/18 00:45 08/30/18 07:23 08/30/18 11:58 White Blood Count 8.6 x10^3/uL (4.0-11.0) Red Blood Count 3.87 x10^6/uL (4.30-5.70) Hemoglobin 12.3 g/dL (13.0-17.5) Hematocrit 35.7 % (39.0-53.0) Mean Corpuscular Volume 92 fL (79-100) Mean Corpuscular Hemoglobin 32 pg (25-35) Mean Corpuscular Hemoglobin Concent 34 g/dL (31-37) Red Cell Distribution Width 13.8 % (11.5-14.5) Platelet Count 144 x10^3/uL (140-400) Neutrophils (%) (Auto) 77 % (31-73) Lymphocytes (%) (Auto) 14 % (24-48) Monocytes (%) (Auto) 9 % (0-9) Eosinophils (%) (Auto) 0 % (0-3) Basophils (%) (Auto) 0 % (0-3) Neutrophils # (Auto) 6.7 x10^3uL (1.8-7.7) Lymphocytes # (Auto) 1.2 x10^3/uL (1.0-4.8) Monocytes # (Auto) 0.8 x10^3/uL (0.0-1.1) Eosinophils # (Auto) 0.0 x10^3/uL (0.0-0.7) Basophils # (Auto) 0.0 x10^3/uL (0.0-0.2) Sodium Level 140 mmol/L (136-145) Potassium Level 3.6 mmol/L (3.5-5.1) Chloride Level 104 mmol/L (98-107) Carbon Dioxide Level 27 mmol/L (21-32) Anion Gap 9 (6-14) Blood Urea Nitrogen 21 mg/dL (8-26) Creatinine 1.3 mg/dL (0.7-1.3) Estimated GFR (Cockcroft-Gault) 66.4 BUN/Creatinine Ratio 16 (6-20) Glucose Level 154 mg/dL (70-99) Lactic Acid Level 1.4 mmol/L (0.4-2.0) Calcium Level 8.8 mg/dL (8.5-10.1) Total Bilirubin 0.6 mg/dL (0.2-1.0) Aspartate Amino Transf (AST/SGOT) 13 U/L (15-37) Alanine Aminotransferase (ALT/SGPT) 28 U/L (16-63) Alkaline Phosphatase 103 U/L (46-116) Total Protein 6.3 g/dL (6.4-8.2) Albumin 3.2 g/dL (3.4-5.0) Albumin/Globulin Ratio 1.0 (1.0-1.7) Glucose (Fingerstick) 115 mg/dL (70-99) 159 mg/dL (70-99) Laboratory Tests Test 08/29/18 16:54 08/29/18 16:57 08/29/18 20:44 08/29/18 21:05 White Blood Count 7.3 x10^3/uL (4.0-11.0) Red Blood Count 4.30 x10^6/uL (4.30-5.70) Hemoglobin 13.5 g/dL (13.0-17.5) Hematocrit 39.8 % (39.0-53.0) Mean Corpuscular Volume 93 fL (79-100) Mean Corpuscular Hemoglobin 31 pg (25-35) Mean Corpuscular Hemoglobin Concent 34 g/dL (31-37) Red Cell Distribution Width 14.3 % (11.5-14.5) Platelet Count 163 x10^3/uL (140-400) Neutrophils (%) (Auto) 75 % (31-73) Lymphocytes (%) (Auto) 18 % (24-48) Monocytes (%) (Auto) 7 % (0-9) Eosinophils (%) (Auto) 0 % (0-3) Basophils (%) (Auto) 1 % (0-3) Neutrophils # (Auto) 5.5 x10^3uL (1.8-7.7) Lymphocytes # (Auto) 1.3 x10^3/uL (1.0-4.8) Monocytes # (Auto) 0.5 x10^3/uL (0.0-1.1) Eosinophils # (Auto) 0.0 x10^3/uL (0.0-0.7) Basophils # (Auto) 0.0 x10^3/uL (0.0-0.2) Prothrombin Time 13.1 SEC (11.7-14.0) Prothromb Time International Ratio 1.0 (0.8-1.1) Activated Partial Thromboplast Time 25 SEC (24-38) Sodium Level 140 mmol/L (136-145) Potassium Level 3.9 mmol/L (3.5-5.1) Chloride Level 100 mmol/L (98-107) Carbon Dioxide Level 27 mmol/L (21-32) Anion Gap 13 (6-14) Blood Urea Nitrogen 22 mg/dL (8-26) Creatinine 1.6 mg/dL (0.7-1.3) Estimated GFR (Cockcroft-Gault) 52.3 BUN/Creatinine Ratio 14 (6-20) Glucose Level 237 mg/dL (70-99) Lactic Acid Level 2.9 mmol/L (0.4-2.0) 2.6 mmol/L (0.4-2.0) Calcium Level 9.7 mg/dL (8.5-10.1) Magnesium Level 1.8 mg/dL (1.8-2.4) Total Bilirubin 0.8 mg/dL (0.2-1.0) Aspartate Amino Transf (AST/SGOT) 16 U/L (15-37) Alanine Aminotransferase (ALT/SGPT) 34 U/L (16-63) Alkaline Phosphatase 125 U/L (46-116) Troponin I Quantitative < 0.017 ng/mL (0.000-0.055) EC-Wuv-F-Type Natriuretic Peptide 41 pg/mL (0-124) Total Protein 7.3 g/dL (6.4-8.2) Albumin 4.1 g/dL (3.4-5.0) Albumin/Globulin Ratio 1.3 (1.0-1.7) Procalcitonin < 0.10 ng/mL (0.00-0.10) Thyroid Stimulating Hormone (TSH) 0.772 uIU/mL (0.358-3.74) Influenza Type A Antigen Negative (NEGATIVE) Influenza Type B Antigen Negative (NEGATIVE) Glucose (Fingerstick) 141 mg/dL (70-99) Test 08/30/18 00:45 08/30/18 07:23 08/30/18 11:58 White Blood Count 8.6 x10^3/uL (4.0-11.0) Red Blood Count 3.87 x10^6/uL (4.30-5.70) Hemoglobin 12.3 g/dL (13.0-17.5) Hematocrit 35.7 % (39.0-53.0) Mean Corpuscular Volume 92 fL (79-100) Mean Corpuscular Hemoglobin 32 pg (25-35) Mean Corpuscular Hemoglobin Concent 34 g/dL (31-37) Red Cell Distribution Width 13.8 % (11.5-14.5) Platelet Count 144 x10^3/uL (140-400) Neutrophils (%) (Auto) 77 % (31-73) Lymphocytes (%) (Auto) 14 % (24-48) Monocytes (%) (Auto) 9 % (0-9) Eosinophils (%) (Auto) 0 % (0-3) Basophils (%) (Auto) 0 % (0-3) Neutrophils # (Auto) 6.7 x10^3uL (1.8-7.7) Lymphocytes # (Auto) 1.2 x10^3/uL (1.0-4.8) Monocytes # (Auto) 0.8 x10^3/uL (0.0-1.1) Eosinophils # (Auto) 0.0 x10^3/uL (0.0-0.7) Basophils # (Auto) 0.0 x10^3/uL (0.0-0.2) Sodium Level 140 mmol/L (136-145) Potassium Level 3.6 mmol/L (3.5-5.1) Chloride Level 104 mmol/L (98-107) Carbon Dioxide Level 27 mmol/L (21-32) Anion Gap 9 (6-14) Blood Urea Nitrogen 21 mg/dL (8-26) Creatinine 1.3 mg/dL (0.7-1.3) Estimated GFR (Cockcroft-Gault) 66.4 BUN/Creatinine Ratio 16 (6-20) Glucose Level 154 mg/dL (70-99) Lactic Acid Level 1.4 mmol/L (0.4-2.0) Calcium Level 8.8 mg/dL (8.5-10.1) Total Bilirubin 0.6 mg/dL (0.2-1.0) Aspartate Amino Transf (AST/SGOT) 13 U/L (15-37) Alanine Aminotransferase (ALT/SGPT) 28 U/L (16-63) Alkaline Phosphatase 103 U/L (46-116) Total Protein 6.3 g/dL (6.4-8.2) Albumin 3.2 g/dL (3.4-5.0) Albumin/Globulin Ratio 1.0 (1.0-1.7) Glucose (Fingerstick) 115 mg/dL (70-99) 159 mg/dL (70-99) Medications Current Medications Aspirin (Yuliya Aspirin) 325 mg 1X ONCE PO Last administered on 08/29/18at 18: 01; Start 08/29/18 at 17:00; Stop 08/29/18 at 17:14; Status DC Famotidine (Pepcid Vial) 20 mg 1X ONCE IVP Last administered on 08/29/18at 18: 39; Start 08/29/18 at 18:30; Stop 08/29/18 at 18:31; Status DC Sodium Chloride 1,000 ml @ 1,000 mls/hr 1X ONCE IV Last administered on 08/29at 19:30; Start 08/29/18 at 19:30; Stop 08/29/18 at 20:29; Status DC Ondansetron HCl (Zofran) 4 mg PRN Q8HRS PRN IV NAUSEA/VOMITING; Start at 20:30; Stop 08/30/18 at 20:29 Morphine Sulfate (Morphine Sulfate) 2 mg PRN Q2HR PRN IV PAIN; Start 08/29/18 at 20:30; Stop 08/30/18 at 20:29 Acetaminophen (Tylenol) 650 mg PRN Q4HRS PRN PO FEVER; Start 08/29/18 at 20:30 ; Stop 08/30/18 at 20:29 Sodium Chloride 1,000 ml @ 100 mls/hr 1X ONCE IV Last administered on at 22:21; Start 08/29/18 at 21:00; Stop 08/30/18 at 06:59; Status DC Ciprofloxacin/ Dextrose 200 ml @ 200 mls/hr Q12HR IV Last administered on at 08:04; Start 08/29/18 at 21:00 Chlorpromazine HCl (Thorazine) 25 mg PRN Q6HRS PRN PO HICCUPS Last administered on 08/29/18at 22:21; Start 08/29/18 at 22:00 Enoxaparin Sodium (Lovenox Per Pharmacy Prophylaxis Dosing) 1 each PRN DAILY PRN MC SEE COMMENTS; Start 08/29/18 at 22:00 Enoxaparin Sodium (Lovenox 40mg Syringe) 40 mg Q24H SQ Last administered on 09/04at 22:26; Start 08/29/18 at 22:00 Active Scripts Active Reported Lipitor (Atorvastatin Calcium) 80 Mg Tablet 1 Tab PO HS Glipizide 10 Mg Tablet 1 Tab PO BID Metformin Hcl 1,000 Mg Tablet 1,000 Mg PO BIDWMEALS Aspir-Low (Aspirin) 81 Mg Tablet.dr 1 Tab PO DAILY Vitals/I & O Vital Sign - Last 24 Hours 08/29/18 08/29/18 08/29/18 08/29/18 16:43 17:00 17:30 18:00 Temp 97.4 97.4 Pulse 86 84 82 84 Resp 16 18 18 16 B/P (MAP) 120/61 (80) Pulse Ox 97 97 98 97 O2 Delivery Room Air 08/29/18 08/29/18 08/29/18 08/29/18 19:45 20:24 20:45 21:00 Temp 98.7 98.7 Pulse 89 89 86 Resp 18 18 20 B/P (MAP) 143/73 (96) Pulse Ox 96 94 98 O2 Delivery Room Air Room Air 08/29/18 08/30/18 08/30/18 08/30/18 23:13 03:53 07:00 07:29 Temp 98.6 98.6 98.7 98.6 98.6 98.7 Pulse 88 95 79 Resp 18 16 16 B/P (MAP) 147/73 (97) 112/62 (79) 133/66 (88) Pulse Ox 96 94 95 O2 Delivery Room Air Room Air Room Air Room Air Intake and Output 08/29/18 08/29/18 08/30/18 15:00 23:00 07:00 Intake Total 620 ml Output Total 250 ml Balance 370 ml ANITA JONES III DO Aug 30, 2018 13:13
--- NOTE | 2018-08-30 13:39 | CARD ---
MR#: [id number] Date of Study: 08/30/2018 Ordering Physician: ELIZA FRANCIS, Referring Physician: ALLISON KRUSE, Tech: Randi Benz APPROVED REPORT EXAM: Two-dimensional and M-mode echocardiogram with Doppler and color Doppler. Other Information Quality : GoodHR: 83bpm INDICATION Syncope 2D DIMENSIONS RVDd2.6 (2.9-3.5cm)Left Atrium(2D)3.1 (1.6-4.0cm) IVSd1.3 (0.7-1.1cm)Aortic Root(2D)3.6 (2.0-3.7cm) LVDd4.3 (3.9-5.9cm)LVOT Diameter2.2 (1.8-2.4cm) PWd1.1 (0.7-1.1cm)LVDs2.7 (2.5-4.0cm) FS (%) 38.4 %SV58.5 ml LVEF(%)69.0 (>50%) Aortic Valve AoV Peak Josue.159.7cm/sAoV VTI28.8cm AO Peak GR.10.2mmHgLVOT Peak Josue.115.0cm/s LVOT VTI 21.76cmAO Mean GR.5mmHg MIKEY (VMAX)1.53pg3JTH (VTI)2.83cm2 Mitral Valve MV E Xigwukgi91.0cm/sMV DECEL [id number] MV A Yshsywyb96.8cm/sMV ENH150on E/A Ratio0.7MVA (PHT)2.18cm2 TDI E/Lateral E'6.4E/Medial E'8.3 Pulmonary Valve PV Peak Ggqrbwbr942.3cm/sPV Peak Grad.9mmHg Pulmonary Vein S1 Ogeobptg87.3cm/sD2 Rqlcqguw99.5cm/s PVa [id number] LEFT VENTRICLE The left ventricle is normal size. There is mild concentric left ventricular hypertrophy. The left ve ntricular systolic function is normal and the ejection fraction is within normal range. The Ejection Fraction is >55%. Septal motion consistent with post-operative state, otherwise, there is normal LV s egmental wall motion. Transmitral Doppler flow pattern is Grade I-abnormal relaxation pattern. RIGHT VENTRICLE The right ventricle is normal size. There is normal right ventricular wall thickness. The right ventr icular systolic function is normal. ATRIA The left atrium size is normal. The right atrium size is normal. The interatrial septum is intact wit h no evidence for an atrial septal defect or patent foramen ovale as noted on 2-D or Doppler imaging. AORTIC VALVE Functional bicuspid aortic valve with fusion of the right and left cusps. Doppler and Color Flow reve aled no significant aortic regurgitation. There is no significant aortic valvular stenosis. MITRAL VALVE The mitral valve is normal in structure and function. There is no evidence of mitral valve prolapse. There is no mitral valve stenosis. Doppler and Color-flow revealed trace mitral regurgitation. TRICUSPID VALVE The tricuspid valve is not well visualized. Doppler and Color Flow revealed trace tricuspid regurgita tion. There is no tricuspid valve stenosis. PULMONIC VALVE The pulmonic valve is not well visualized. Doppler and Color Flow revealed trace pulmonic valvular re gurgitation. There is no pulmonic valvular stenosis. GREAT VESSELS The aortic root is normal in size. The IVC was not visualized. PERICARDIAL EFFUSION There is no evidence of significant pericardial effusion. Critical Notification Critical Value: No <Conclusion> The left ventricular systolic function is normal and the ejection fraction is within normal range. Th e Ejection Fraction is >55%. Septal motion consistent with post-operative state, otherwise, there is normal LV segmental wall howie on. Functional bicuspid aortic valve with fusion of the right and left cusps. There is no significant aortic valvular stenosis. Signed by : Arron Nguyen, Electronically Approved : 08/30/2018 13:37:42
[2018-08-30] MEDS: ASPIRIN ENTERIC COATED 81 MG TABLET.DR. PO SCH (15:54)
[2018-08-30] MEDS: glipiZIDE 5 MG TABLET PO SCH (15:54)
[2018-08-30] MEDS: metFORMIN 500 MG TABLET PO SCH (15:54)
--- NOTE | 2018-08-30 16:56 | PDOC2 ---
NEUROLOGY CONSULT Date of Admission Date of Admission DATE: 08/30/18 TIME: 16:48 Reason for Consult Reason for Consult: Parkinson's Referring Physician Referring Physician: Dr. Thompson Source Source: Chart review, Patient History of Present Illness History of Present Illness The patient is a 68-year-old right-handed male admitted with some generalized weakness. I am asked to see him for Parkinson's. The patient, nurses, and notes do not describe any tremor, rigidity, lack of facial expression, bradykinesia, but the patient does have a gait disorder. He does have long-standing diabetes. He has been living with his son. He knows of no history of stroke, but stroke is listed in the chart. Past Medical History Cardiovascular: HTN, Hyperlipidemia Pulmonary: Pneumonia Endocrine: Diabetes Past Surgical History Past Surgical History: No pertinent history Family History Family History: No pertinent hx Social History Social History , lives with son, no alcohol or tobacco Current Medications Current Medications Current Medications Aspirin (Yuliya Aspirin) 325 mg 1X ONCE PO Last administered on 08/29/18at 18: 01; Start 08/29/18 at 17:00; Stop 08/29/18 at 17:14; Status DC Famotidine (Pepcid Vial) 20 mg 1X ONCE IVP Last administered on 08/29/18at 18: 39; Start 08/29/18 at 18:30; Stop 08/29/18 at 18:31; Status DC Sodium Chloride 1,000 ml @ 1,000 mls/hr 1X ONCE IV Last administered on 08/29at 19:30; Start 08/29/18 at 19:30; Stop 08/29/18 at 20:29; Status DC Ondansetron HCl (Zofran) 4 mg PRN Q8HRS PRN IV NAUSEA/VOMITING; Start at 20:30; Stop 08/30/18 at 20:29 Morphine Sulfate (Morphine Sulfate) 2 mg PRN Q2HR PRN IV PAIN; Start 08/29/18 at 20:30; Stop 08/30/18 at 20:29 Acetaminophen (Tylenol) 650 mg PRN Q4HRS PRN PO FEVER; Start 08/29/18 at 20:30 ; Stop 08/30/18 at 20:29 Sodium Chloride 1,000 ml @ 100 mls/hr 1X ONCE IV Last administered on at 22:21; Start 08/29/18 at 21:00; Stop 08/30/18 at 06:59; Status DC Ciprofloxacin/ Dextrose 200 ml @ 200 mls/hr Q12HR IV Last administered on at 08:04; Start 08/29/18 at 21:00 Chlorpromazine HCl (Thorazine) 25 mg PRN Q6HRS PRN PO HICCUPS Last administered on 08/29/18at 22:21; Start 08/29/18 at 22:00 Enoxaparin Sodium (Lovenox Per Pharmacy Prophylaxis Dosing) 1 each PRN DAILY PRN MC SEE COMMENTS; Start 08/29/18 at 22:00 Enoxaparin Sodium (Lovenox 40mg Syringe) 40 mg Q24H SQ Last administered on 09/04at 22:26; Start 08/29/18 at 22:00 Aspirin (Ecotrin) 81 mg DAILY PO Last administered on 08/30/18at 15:54; Start 08/30/18 at 15:00 Atorvastatin Calcium (Lipitor) 80 mg QHS PO ; Start 08/30/18 at 21:00 Glipizide (Glucotrol) 10 mg BIDBFRMEAL PO Last administered on 08/30/18at 15:54 ; Start 08/30/18 at 16:30 Metformin HCl (Glucophage) 1,000 mg BIDWMEALS PO Last administered on at 15:54; Start 08/30/18 at 17:00 Lactobacillus Rhamnosus (Culturelle) 1 cap BID PO ; Start 08/30/18 at 21:00 Active Scripts Active Reported Lipitor (Atorvastatin Calcium) 80 Mg Tablet 1 Tab PO HS Glipizide 10 Mg Tablet 1 Tab PO BID Metformin Hcl 1,000 Mg Tablet 1,000 Mg PO BIDWMEALS Aspir-Low (Aspirin) 81 Mg Tablet.dr 1 Tab PO DAILY Allergies Allergies: Coded Allergies: Penicillins (Verified Allergy, Intermediate, 08/29/18) ROS Review of System Negative for fever, chills, weight loss, shortness of breath, chest pain, indigestion, hematochezia, melena, and dysuria. Full 14-point review of systems is negative. Physical Exam Physical Examination General: Well-developed, well-nourished, white male, in no acute distress HEENT: Normocephalic andatraumatic. Tympanic membranes clear.Temporal arteries pulsatile and nontender.Fundoscopic exam unremarkable Neck: Supple without bruit, no meningismus Musculoskeletal: Stability:see neurologic. Gait exam:see neurologic. Tone:see neurologic. Strength:see neurologic. Neurological: Mental Status:orientation, memory, attention span/concentration, language, fund of knowledge: he knows the name of the hospital but not the date and is a very poor historian. Cranial Nerves:Pupils equal and reactive to light, extraocular movements areintact, visual blakely are full to confrontation. Facial sensation is normal. There is no facial asymmetry. Vestibulo-ocular reflex is intact. Palate elevates and tongue protrudes in midline. All other cranial related problems are negative except as mentioned before.Reflexes:0+ and symmetric with flexor plantar responses. Motor:4/5 strength with normal tone and bulk. Coordination:Finger-nose finger and mhec-kh-aitm testing are normal. Rapid alternating movements and fine finger movements are intact. No attributes of Parkinson's. Gait:apraxic. Sensory:stocking loss. Vitals VITALS Vital Signs Date Time Temp Pulse Resp B/P (MAP) Pulse Ox O2 Delivery O2 Flow Rate FiO2 08/30/18 15:00 98.2 74 20 123/65 (84) 97 Room Air 98.2 Labs Labs Laboratory Tests Test 08/29/18 16:54 08/29/18 16:57 08/29/18 20:44 08/29/18 21:05 White Blood Count 7.3 x10^3/uL (4.0-11.0) Red Blood Count 4.30 x10^6/uL (4.30-5.70) Hemoglobin 13.5 g/dL (13.0-17.5) Hematocrit 39.8 % (39.0-53.0) Mean Corpuscular Volume 93 fL (79-100) Mean Corpuscular Hemoglobin 31 pg (25-35) Mean Corpuscular Hemoglobin Concent 34 g/dL (31-37) Red Cell Distribution Width 14.3 % (11.5-14.5) Platelet Count 163 x10^3/uL (140-400) Neutrophils (%) (Auto) 75 % (31-73) Lymphocytes (%) (Auto) 18 % (24-48) Monocytes (%) (Auto) 7 % (0-9) Eosinophils (%) (Auto) 0 % (0-3) Basophils (%) (Auto) 1 % (0-3) Neutrophils # (Auto) 5.5 x10^3uL (1.8-7.7) Lymphocytes # (Auto) 1.3 x10^3/uL (1.0-4.8) Monocytes # (Auto) 0.5 x10^3/uL (0.0-1.1) Eosinophils # (Auto) 0.0 x10^3/uL (0.0-0.7) Basophils # (Auto) 0.0 x10^3/uL (0.0-0.2) Prothrombin Time 13.1 SEC (11.7-14.0) Prothromb Time International Ratio 1.0 (0.8-1.1) Activated Partial Thromboplast Time 25 SEC (24-38) Sodium Level 140 mmol/L (136-145) Potassium Level 3.9 mmol/L (3.5-5.1) Chloride Level 100 mmol/L (98-107) Carbon Dioxide Level 27 mmol/L (21-32) Anion Gap 13 (6-14) Blood Urea Nitrogen 22 mg/dL (8-26) Creatinine 1.6 mg/dL (0.7-1.3) Estimated GFR (Cockcroft-Gault) 52.3 BUN/Creatinine Ratio 14 (6-20) Glucose Level 237 mg/dL (70-99) Lactic Acid Level 2.9 mmol/L (0.4-2.0) 2.6 mmol/L (0.4-2.0) Calcium Level 9.7 mg/dL (8.5-10.1) Magnesium Level 1.8 mg/dL (1.8-2.4) Total Bilirubin 0.8 mg/dL (0.2-1.0) Aspartate Amino Transf (AST/SGOT) 16 U/L (15-37) Alanine Aminotransferase (ALT/SGPT) 34 U/L (16-63) Alkaline Phosphatase 125 U/L (46-116) Troponin I Quantitative < 0.017 ng/mL (0.000-0.055) VK-Boq-W-Type Natriuretic Peptide 41 pg/mL (0-124) Total Protein 7.3 g/dL (6.4-8.2) Albumin 4.1 g/dL (3.4-5.0) Albumin/Globulin Ratio 1.3 (1.0-1.7) Procalcitonin < 0.10 ng/mL (0.00-0.10) Thyroid Stimulating Hormone (TSH) 0.772 uIU/mL (0.358-3.74) Influenza Type A Antigen Negative (NEGATIVE) Influenza Type B Antigen Negative (NEGATIVE) Glucose (Fingerstick) 141 mg/dL (70-99) Test 08/30/18 00:45 08/30/18 07:23 08/30/18 11:58 White Blood Count 8.6 x10^3/uL (4.0-11.0) Red Blood Count 3.87 x10^6/uL (4.30-5.70) Hemoglobin 12.3 g/dL (13.0-17.5) Hematocrit 35.7 % (39.0-53.0) Mean Corpuscular Volume 92 fL (79-100) Mean Corpuscular Hemoglobin 32 pg (25-35) Mean Corpuscular Hemoglobin Concent 34 g/dL (31-37) Red Cell Distribution Width 13.8 % (11.5-14.5) Platelet Count 144 x10^3/uL (140-400) Neutrophils (%) (Auto) 77 % (31-73) Lymphocytes (%) (Auto) 14 % (24-48) Monocytes (%) (Auto) 9 % (0-9) Eosinophils (%) (Auto) 0 % (0-3) Basophils (%) (Auto) 0 % (0-3) Neutrophils # (Auto) 6.7 x10^3uL (1.8-7.7) Lymphocytes # (Auto) 1.2 x10^3/uL (1.0-4.8) Monocytes # (Auto) 0.8 x10^3/uL (0.0-1.1) Eosinophils # (Auto) 0.0 x10^3/uL (0.0-0.7) Basophils # (Auto) 0.0 x10^3/uL (0.0-0.2) Sodium Level 140 mmol/L (136-145) Potassium Level 3.6 mmol/L (3.5-5.1) Chloride Level 104 mmol/L (98-107) Carbon Dioxide Level 27 mmol/L (21-32) Anion Gap 9 (6-14) Blood Urea Nitrogen 21 mg/dL (8-26) Creatinine 1.3 mg/dL (0.7-1.3) Estimated GFR (Cockcroft-Gault) 66.4 BUN/Creatinine Ratio 16 (6-20) Glucose Level 154 mg/dL (70-99) Lactic Acid Level 1.4 mmol/L (0.4-2.0) Calcium Level 8.8 mg/dL (8.5-10.1) Total Bilirubin 0.6 mg/dL (0.2-1.0) Aspartate Amino Transf (AST/SGOT) 13 U/L (15-37) Alanine Aminotransferase (ALT/SGPT) 28 U/L (16-63) Alkaline Phosphatase 103 U/L (46-116) Total Protein 6.3 g/dL (6.4-8.2) Albumin 3.2 g/dL (3.4-5.0) Albumin/Globulin Ratio 1.0 (1.0-1.7) Glucose (Fingerstick) 115 mg/dL (70-99) 159 mg/dL (70-99) Laboratory Tests Test 08/29/18 16:54 08/29/18 16:57 08/29/18 20:44 08/29/18 21:05 White Blood Count 7.3 x10^3/uL (4.0-11.0) Red Blood Count 4.30 x10^6/uL (4.30-5.70) Hemoglobin 13.5 g/dL (13.0-17.5) Hematocrit 39.8 % (39.0-53.0) Mean Corpuscular Volume 93 fL (79-100) Mean Corpuscular Hemoglobin 31 pg (25-35) Mean Corpuscular Hemoglobin Concent 34 g/dL (31-37) Red Cell Distribution Width 14.3 % (11.5-14.5) Platelet Count 163 x10^3/uL (140-400) Neutrophils (%) (Auto) 75 % (31-73) Lymphocytes (%) (Auto) 18 % (24-48) Monocytes (%) (Auto) 7 % (0-9) Eosinophils (%) (Auto) 0 % (0-3) Basophils (%) (Auto) 1 % (0-3) Neutrophils # (Auto) 5.5 x10^3uL (1.8-7.7) Lymphocytes # (Auto) 1.3 x10^3/uL (1.0-4.8) Monocytes # (Auto) 0.5 x10^3/uL (0.0-1.1) Eosinophils # (Auto) 0.0 x10^3/uL (0.0-0.7) Basophils # (Auto) 0.0 x10^3/uL (0.0-0.2) Prothrombin Time 13.1 SEC (11.7-14.0) Prothromb Time International Ratio 1.0 (0.8-1.1) Activated Partial Thromboplast Time 25 SEC (24-38) Sodium Level 140 mmol/L (136-145) Potassium Level 3.9 mmol/L (3.5-5.1) Chloride Level 100 mmol/L (98-107) Carbon Dioxide Level 27 mmol/L (21-32) Anion Gap 13 (6-14) Blood Urea Nitrogen 22 mg/dL (8-26) Creatinine 1.6 mg/dL (0.7-1.3) Estimated GFR (Cockcroft-Gault) 52.3 BUN/Creatinine Ratio 14 (6-20) Glucose Level 237 mg/dL (70-99) Lactic Acid Level 2.9 mmol/L (0.4-2.0) 2.6 mmol/L (0.4-2.0) Calcium Level 9.7 mg/dL (8.5-10.1) Magnesium Level 1.8 mg/dL (1.8-2.4) Total Bilirubin 0.8 mg/dL (0.2-1.0) Aspartate Amino Transf (AST/SGOT) 16 U/L (15-37) Alanine Aminotransferase (ALT/SGPT) 34 U/L (16-63) Alkaline Phosphatase 125 U/L (46-116) Troponin I Quantitative < 0.017 ng/mL (0.000-0.055) RL-Qnz-C-Type Natriuretic Peptide 41 pg/mL (0-124) Total Protein 7.3 g/dL (6.4-8.2) Albumin 4.1 g/dL (3.4-5.0) Albumin/Globulin Ratio 1.3 (1.0-1.7) Procalcitonin < 0.10 ng/mL (0.00-0.10) Thyroid Stimulating Hormone (TSH) 0.772 uIU/mL (0.358-3.74) Influenza Type A Antigen Negative (NEGATIVE) Influenza Type B Antigen Negative (NEGATIVE) Glucose (Fingerstick) 141 mg/dL (70-99) Test 08/30/18 00:45 08/30/18 07:23 08/30/18 11:58 White Blood Count 8.6 x10^3/uL (4.0-11.0) Red Blood Count 3.87 x10^6/uL (4.30-5.70) Hemoglobin 12.3 g/dL (13.0-17.5) Hematocrit 35.7 % (39.0-53.0) Mean Corpuscular Volume 92 fL (79-100) Mean Corpuscular Hemoglobin 32 pg (25-35) Mean Corpuscular Hemoglobin Concent 34 g/dL (31-37) Red Cell Distribution Width 13.8 % (11.5-14.5) Platelet Count 144 x10^3/uL (140-400) Neutrophils (%) (Auto) 77 % (31-73) Lymphocytes (%) (Auto) 14 % (24-48) Monocytes (%) (Auto) 9 % (0-9) Eosinophils (%) (Auto) 0 % (0-3) Basophils (%) (Auto) 0 % (0-3) Neutrophils # (Auto) 6.7 x10^3uL (1.8-7.7) Lymphocytes # (Auto) 1.2 x10^3/uL (1.0-4.8) Monocytes # (Auto) 0.8 x10^3/uL (0.0-1.1) Eosinophils # (Auto) 0.0 x10^3/uL (0.0-0.7) Basophils # (Auto) 0.0 x10^3/uL (0.0-0.2) Sodium Level 140 mmol/L (136-145) Potassium Level 3.6 mmol/L (3.5-5.1) Chloride Level 104 mmol/L (98-107) Carbon Dioxide Level 27 mmol/L (21-32) Anion Gap 9 (6-14) Blood Urea Nitrogen 21 mg/dL (8-26) Creatinine 1.3 mg/dL (0.7-1.3) Estimated GFR (Cockcroft-Gault) 66.4 BUN/Creatinine Ratio 16 (6-20) Glucose Level 154 mg/dL (70-99) Lactic Acid Level 1.4 mmol/L (0.4-2.0) Calcium Level 8.8 mg/dL (8.5-10.1) Total Bilirubin 0.6 mg/dL (0.2-1.0) Aspartate Amino Transf (AST/SGOT) 13 U/L (15-37) Alanine Aminotransferase (ALT/SGPT) 28 U/L (16-63) Alkaline Phosphatase 103 U/L (46-116) Total Protein 6.3 g/dL (6.4-8.2) Albumin 3.2 g/dL (3.4-5.0) Albumin/Globulin Ratio 1.0 (1.0-1.7) Glucose (Fingerstick) 115 mg/dL (70-99) 159 mg/dL (70-99) Images Images CT head: Posterior fossa is unremarkable. No evidence of acute intracranial hemorrhage or abnormal extra-axial fluid collection. No evidence of mass effect or midline shift. Extensive areas of hypoattenuation in the deep and subcortical white matter bilaterally. There are some more well-defined defects within the deep white matter, likely chronic lacunar infarcts. Mild generalized atrophic change with ventricular and sulcal enlargement. Visualized orbits are unremarkable. Visualized paranasal sinuses and mastoids are clear. No acute calvarial abnormality. Impression: 1. Atrophy. 2. White matter abnormalities bilaterally, nonspecific but most commonly are due to chronic small vessel ischemic disease in a patient of this age. Demyelinating disorder or vasculitis could also be considered. Assessment/Plan Assessment/Plan Impression: Dementia, most likely Alzheimer's, lot other causes. 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 No evidence of Parkinson's. Cardiology seeing him for PSVT and abnormal EKG Recommendations: Additional laboratory studies regarding other causes of these conditions. Rehabilitation modalities. Most likely will need senior care unit placement. Thank you for letting me help with the patient's care. MIRI HICKMAN MD Aug 30, 2018 16:56
[2018-08-30 17:07] LABS: BILIRUBIN,URINE NEGATIVE (NEG); CLARITY,URINE CLEAR; COLOR,URINE YELLOW; NITRITE,URINE NEGATIVE (NEG); PH,URINE 5.5; PROTEIN,URINE NEGATIVE (NEG-TRACE)
[2018-08-30 17:12] LABS: BACTERIA,URINE 0 /HPF (0-FEW); RBC,URINE 0 /HPF (0-2)
[2018-08-30 17:13] LABS: WBC,URINE OCC /HPF (0-4)
[2018-08-30] MEDS: LACTOBACILLUS RHAMNOSUS GG 1 CAPSULE. PO SCH (21:27)
[2018-08-30] MEDS: ATORVASTATIN CALCIUM 40 MG TABLET. PO SCH (21:27)
[2018-08-30] MEDS: ENOXAPARIN 40 MG/0.4 ML SYRINGE. SQ SCH (21:31)
[2018-08-31 03:00] VITALS: BP 147/71
[2018-08-31 06:16] LABS: C-REACTIVE PROTEIN 14.1 mg/L (0-3.3)
--- NOTE | 2018-08-31 06:48 | PDOC ---
PROGRESS NOTES Chief Complaint Chief Complaint Weakness, and debility, recent illness, prior PNA Hiccough, resolved Abnormal EKG: SR with LVH/LAFB, no cardiac symptoms. PSVT: x1 brief episode otherwise maintain SR with good BP control without antiHTN Presyncope with nontraumatic fall: could be related to poor hydration or arrhythmia. DM2: per PCP moderate dementia Hx of CVA History of Present Illness History of Present Illness Pt seen and examined with PT and RN and son Vitals Vitals Vital Signs Date Time Temp Pulse Resp B/P (MAP) Pulse Ox O2 Delivery O2 Flow Rate FiO2 08/31/18 03:00 99.5 79 18 147/71 (96) 94 Room Air 99.5 Physical Exam General: Cooperative, No acute distress, Other (weak) Heart: Regular rate (S), Normal S1, Normal S2, Other (3/6 systolic murmur to LLS border) Lungs: Clear Abdomen: Normal bowel sounds, Soft, No tenderness Extremities: No cyanosis, No edema Skin: No breakdown, No significant lesion Labs LABS Laboratory Tests Test 08/30/18 07:23 08/30/18 11:58 08/30/18 16:00 08/30/18 17:09 Glucose (Fingerstick) 115 mg/dL (70-99) 159 mg/dL (70-99) 162 mg/dL (70-99) Urine Collection Type Unknown Urine Color Yellow Urine Clarity Clear Urine pH 5.5 Urine Specific [place] 1.020 Urine Protein Negative mg/dL (NEG-TRACE) Urine Glucose (UA) 500 mg/dL (NEG) Urine Ketones (Stick) Negative mg/dL (NEG) Urine Blood Negative (NEG) Urine Nitrite Negative (NEG) Urine Bilirubin Negative (NEG) Urine Urobilinogen Dipstick 1.0 mg/dL (0.2 mg/dL) Urine Leukocyte Esterase Negative (NEG) Urine RBC 0 /HPF (0-2) Urine WBC Occ /HPF (0-4) Urine Bacteria 0 /HPF (0-FEW) Urine Mucus Mod /LPF Test 08/30/18 20:35 08/31/18 05:00 Glucose (Fingerstick) 139 mg/dL (70-99) Creatine Kinase 144 U/L (39-308) C-Reactive Protein, Quantitative 14.1 mg/L (0-3.3) Assessment and Plan Assessmemt and Plan Problems Medical Problems: (1) Acute electrocardiogram changes Status: Acute Comment Review of Relevant I have reviewed the following items jessica (where applicable) has been applied. Labs Laboratory Tests Test 08/29/18 16:54 08/29/18 16:57 08/29/18 20:44 08/29/18 21:05 White Blood Count 7.3 x10^3/uL (4.0-11.0) Red Blood Count 4.30 x10^6/uL (4.30-5.70) Hemoglobin 13.5 g/dL (13.0-17.5) Hematocrit 39.8 % (39.0-53.0) Mean Corpuscular Volume 93 fL (79-100) Mean Corpuscular Hemoglobin 31 pg (25-35) Mean Corpuscular Hemoglobin Concent 34 g/dL (31-37) Red Cell Distribution Width 14.3 % (11.5-14.5) Platelet Count 163 x10^3/uL (140-400) Neutrophils (%) (Auto) 75 % (31-73) Lymphocytes (%) (Auto) 18 % (24-48) Monocytes (%) (Auto) 7 % (0-9) Eosinophils (%) (Auto) 0 % (0-3) Basophils (%) (Auto) 1 % (0-3) Neutrophils # (Auto) 5.5 x10^3uL (1.8-7.7) Lymphocytes # (Auto) 1.3 x10^3/uL (1.0-4.8) Monocytes # (Auto) 0.5 x10^3/uL (0.0-1.1) Eosinophils # (Auto) 0.0 x10^3/uL (0.0-0.7) Basophils # (Auto) 0.0 x10^3/uL (0.0-0.2) Prothrombin Time 13.1 SEC (11.7-14.0) Prothromb Time International Ratio 1.0 (0.8-1.1) Activated Partial Thromboplast Time 25 SEC (24-38) Sodium Level 140 mmol/L (136-145) Potassium Level 3.9 mmol/L (3.5-5.1) Chloride Level 100 mmol/L (98-107) Carbon Dioxide Level 27 mmol/L (21-32) Anion Gap 13 (6-14) Blood Urea Nitrogen 22 mg/dL (8-26) Creatinine 1.6 mg/dL (0.7-1.3) Estimated GFR (Cockcroft-Gault) 52.3 BUN/Creatinine Ratio 14 (6-20) Glucose Level 237 mg/dL (70-99) Lactic Acid Level 2.9 mmol/L (0.4-2.0) 2.6 mmol/L (0.4-2.0) Calcium Level 9.7 mg/dL (8.5-10.1) Magnesium Level 1.8 mg/dL (1.8-2.4) Total Bilirubin 0.8 mg/dL (0.2-1.0) Aspartate Amino Transf (AST/SGOT) 16 U/L (15-37) Alanine Aminotransferase (ALT/SGPT) 34 U/L (16-63) Alkaline Phosphatase 125 U/L (46-116) Troponin I Quantitative < 0.017 ng/mL (0.000-0.055) OY-Cql-P-Type Natriuretic Peptide 41 pg/mL (0-124) Total Protein 7.3 g/dL (6.4-8.2) Albumin 4.1 g/dL (3.4-5.0) Albumin/Globulin Ratio 1.3 (1.0-1.7) Procalcitonin < 0.10 ng/mL (0.00-0.10) Thyroid Stimulating Hormone (TSH) 0.772 uIU/mL (0.358-3.74) Influenza Type A Antigen Negative (NEGATIVE) Influenza Type B Antigen Negative (NEGATIVE) Glucose (Fingerstick) 141 mg/dL (70-99) Test 08/30/18 00:45 08/30/18 07:23 08/30/18 11:58 08/30/18 16:00 White Blood Count 8.6 x10^3/uL (4.0-11.0) Red Blood Count 3.87 x10^6/uL (4.30-5.70) Hemoglobin 12.3 g/dL (13.0-17.5) Hematocrit 35.7 % (39.0-53.0) Mean Corpuscular Volume 92 fL (79-100) Mean Corpuscular Hemoglobin 32 pg (25-35) Mean Corpuscular Hemoglobin Concent 34 g/dL (31-37) Red Cell Distribution Width 13.8 % (11.5-14.5) Platelet Count 144 x10^3/uL (140-400) Neutrophils (%) (Auto) 77 % (31-73) Lymphocytes (%) (Auto) 14 % (24-48) Monocytes (%) (Auto) 9 % (0-9) Eosinophils (%) (Auto) 0 % (0-3) Basophils (%) (Auto) 0 % (0-3) Neutrophils # (Auto) 6.7 x10^3uL (1.8-7.7) Lymphocytes # (Auto) 1.2 x10^3/uL (1.0-4.8) Monocytes # (Auto) 0.8 x10^3/uL (0.0-1.1) Eosinophils # (Auto) 0.0 x10^3/uL (0.0-0.7) Basophils # (Auto) 0.0 x10^3/uL (0.0-0.2) Sodium Level 140 mmol/L (136-145) Potassium Level 3.6 mmol/L (3.5-5.1) Chloride Level 104 mmol/L (98-107) Carbon Dioxide Level 27 mmol/L (21-32) Anion Gap 9 (6-14) Blood Urea Nitrogen 21 mg/dL (8-26) Creatinine 1.3 mg/dL (0.7-1.3) Estimated GFR (Cockcroft-Gault) 66.4 BUN/Creatinine Ratio 16 (6-20) Glucose Level 154 mg/dL (70-99) Lactic Acid Level 1.4 mmol/L (0.4-2.0) Calcium Level 8.8 mg/dL (8.5-10.1) Total Bilirubin 0.6 mg/dL (0.2-1.0) Aspartate Amino Transf (AST/SGOT) 13 U/L (15-37) Alanine Aminotransferase (ALT/SGPT) 28 U/L (16-63) Alkaline Phosphatase 103 U/L (46-116) Total Protein 6.3 g/dL (6.4-8.2) Albumin 3.2 g/dL (3.4-5.0) Albumin/Globulin Ratio 1.0 (1.0-1.7) Glucose (Fingerstick) 115 mg/dL (70-99) 159 mg/dL (70-99) Urine Collection Type Unknown Urine Color Yellow Urine Clarity Clear Urine pH 5.5 Urine Specific [place] 1.020 Urine Protein Negative mg/dL (NEG-TRACE) Urine Glucose (UA) 500 mg/dL (NEG) Urine Ketones (Stick) Negative mg/dL (NEG) Urine Blood Negative (NEG) Urine Nitrite Negative (NEG) Urine Bilirubin Negative (NEG) Urine Urobilinogen Dipstick 1.0 mg/dL (0.2 mg/dL) Urine Leukocyte Esterase Negative (NEG) Urine RBC 0 /HPF (0-2) Urine WBC Occ /HPF (0-4) Urine Bacteria 0 /HPF (0-FEW) Urine Mucus Mod /LPF Test 08/30/18 17:09 08/30/18 20:35 08/31/18 05:00 Glucose (Fingerstick) 162 mg/dL (70-99) 139 mg/dL (70-99) Creatine Kinase 144 U/L (39-308) C-Reactive Protein, Quantitative 14.1 mg/L (0-3.3) Laboratory Tests Test 08/30/18 07:23 08/30/18 11:58 08/30/18 16:00 08/30/18 17:09 Glucose (Fingerstick) 115 mg/dL (70-99) 159 mg/dL (70-99) 162 mg/dL (70-99) Urine Collection Type Unknown Urine Color Yellow Urine Clarity Clear Urine pH 5.5 Urine Specific [place] 1.020 Urine Protein Negative mg/dL (NEG-TRACE) Urine Glucose (UA) 500 mg/dL (NEG) Urine Ketones (Stick) Negative mg/dL (NEG) Urine Blood Negative (NEG) Urine Nitrite Negative (NEG) Urine Bilirubin Negative (NEG) Urine Urobilinogen Dipstick 1.0 mg/dL (0.2 mg/dL) Urine Leukocyte Esterase Negative (NEG) Urine RBC 0 /HPF (0-2) Urine WBC Occ /HPF (0-4) Urine Bacteria 0 /HPF (0-FEW) Urine Mucus Mod /LPF Test 08/30/18 20:35 08/31/18 05:00 Glucose (Fingerstick) 139 mg/dL (70-99) Creatine Kinase 144 U/L (39-308) C-Reactive Protein, Quantitative 14.1 mg/L (0-3.3) Microbiology 08/29/18 Blood Culture - Preliminary, Resulted NO GROWTH AFTER 1 DAY Medications Current Medications Aspirin (Yuliya Aspirin) 325 mg 1X ONCE PO Last administered on 08/29/18at 18: 01; Start 08/29/18 at 17:00; Stop 08/29/18 at 17:14; Status DC Famotidine (Pepcid Vial) 20 mg 1X ONCE IVP Last administered on 08/29/18at 18: 39; Start 08/29/18 at 18:30; Stop 08/29/18 at 18:31; Status DC Sodium Chloride 1,000 ml @ 1,000 mls/hr 1X ONCE IV Last administered on 08/29at 19:30; Start 08/29/18 at 19:30; Stop 08/29/18 at 20:29; Status DC Ondansetron HCl (Zofran) 4 mg PRN Q8HRS PRN IV NAUSEA/VOMITING; Start at 20:30; Stop 08/30/18 at 20:29; Status DC Morphine Sulfate (Morphine Sulfate) 2 mg PRN Q2HR PRN IV PAIN; Start 08/29/18 at 20:30; Stop 08/30/18 at 20:29; Status DC Acetaminophen (Tylenol) 650 mg PRN Q4HRS PRN PO FEVER; Start 08/29/18 at 20:30 ; Stop 08/30/18 at 20:29; Status DC Sodium Chloride 1,000 ml @ 100 mls/hr 1X ONCE IV Last administered on at 22:21; Start 08/29/18 at 21:00; Stop 08/30/18 at 06:59; Status DC Ciprofloxacin/ Dextrose 200 ml @ 200 mls/hr Q12HR IV Last administered on at 21:27; Start 08/29/18 at 21:00 Chlorpromazine HCl (Thorazine) 25 mg PRN Q6HRS PRN PO HICCUPS Last administered on 08/29/18at 22:21; Start 08/29/18 at 22:00 Enoxaparin Sodium (Lovenox Per Pharmacy Prophylaxis Dosing) 1 each PRN DAILY PRN [facility] SEE COMMENTS; Start 08/29/18 at 22:00 Enoxaparin Sodium (Lovenox 40mg Syringe) 40 mg Q24H SQ Last administered on 09/04at 22:26; Start 08/29/18 at 22:00 Aspirin (Ecotrin) 81 mg DAILY PO Last administered on 08/30/18at 15:54; Start 08/30/18 at 15:00 Atorvastatin Calcium (Lipitor) 80 mg QHS PO Last administered on 08/30/18 21: 27; Start 08/30/18 at 21:00 Glipizide (Glucotrol) 10 mg BIDBFRMEAL PO Last administered on 08/30/18 15:54 ; Start 08/30/18 at 16:30 Metformin HCl (Glucophage) 1,000 mg BIDWMEALS PO Last administered on 15:54; Start 08/30/18 at 17:00 Lactobacillus Rhamnosus (Culturelle) 1 cap BID PO Last administered on 21:27; Start 08/30/18 at 21:00 Active Scripts Active Reported Lipitor (Atorvastatin Calcium) 80 Mg Tablet 1 Tab PO HS Glipizide 10 Mg Tablet 1 Tab PO BID Metformin Hcl 1,000 Mg Tablet 1,000 Mg PO BIDWMEALS Aspir-Low (Aspirin) 81 Mg Tablet. 1 Tab PO DAILY Vitals/I & O Vital Sign - Last 24 Hours 08/30/18 08/30/18 08/30/18 08/30/18 07:00 07:29 13:27 13:28 Temp 98.7 98.7 Pulse 79 84 88 Resp 16 B/P (MAP) 133/66 (88) 136/67 (90) 144/74 (97) Pulse Ox 95 O2 Delivery Room Air Room Air 08/30/18 08/30/18 08/30/18 08/30/18 13:28 15:00 19:00 20:19 Temp 98.2 98.4 98.2 98.4 Pulse 99 74 104 Resp 20 18 B/P (MAP) 122/61 (81) 123/65 (84) 159/90 (113) Pulse Ox 97 99 O2 Delivery Room Air Room Air Room Air 08/30/18 08/31/18 23:00 03:00 Temp 99.1 99.5 99.1 99.5 Pulse 82 79 Resp 18 18 B/P (MAP) 140/73 (95) 147/71 (96) Pulse Ox 97 94 O2 Delivery Room Air Room Air Intake and Output 12/13/18 12/13/18 12/14/18 15:00 23:00 07:00 Intake Total 440 ml Balance 440 ml ALCON THAO MD Aug 31, 2018 06:48
[2018-08-31 07:00] VITALS: BP 140/68
[2018-08-31] MEDS: metFORMIN 500 MG TABLET PO SCH ×2 (08:21→17:13)
[2018-08-31] MEDS: LACTOBACILLUS RHAMNOSUS GG 1 CAPSULE. PO SCH ×2 (08:21→20:40)
[2018-08-31] MEDS: glipiZIDE 5 MG TABLET PO SCH ×2 (08:21→17:13)
[2018-08-31] MEDS: ASPIRIN ENTERIC COATED 81 MG TABLET.DR. PO SCH (08:21)
[2018-08-31] MEDS: CIPROFLOXACIN 400MG PREMIX 200 ML IV SCH ×2 (08:22→20:40)
[2018-08-31 11:00] VITALS: BP 127/68
--- NOTE | 2018-08-31 11:28 | PDOC ---
PROGRESS NOTES Assessment Problems Medical Problems: (1) Acute electrocardiogram changes Status: Acute Dementia, most likely Alzheimer's Neuropathy, most likely diabetic Lab studies I ordered were positive for elevated sedimentation rate and CRP. Note the patient is on an paroxysm ofloxacin, no documentation of any infection. 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 No evidence of Parkinson's. Cardiology seeing him for PSVT and abnormal EKG Hiccups noted by Dr. Thompson, I do not observe any Plan Repeat ESR/CRP in a couple weeks, rheumatology referral if they remain elevated and no other causes found. Rehabilitation modalities. Most likely will need fci unit placement. Subjective No complaints, willing to go to fci unit. Objective Vital Signs Date Time Temp Pulse Resp B/P (MAP) Pulse Ox O2 Delivery O2 Flow Rate FiO2 08/31/18 07:21 Room Air 08/31/18 07:00 99.8 76 18 140/68 (92) 98 99.8 Intake and Output 08/31/18 07:00 Intake Total 440 ml Balance 440 ml Intake Oral 440 ml # Voids 2 PHYSICAL EXAM Alert. Oriented to place and person, not date. PERRL. EOMI. CN: no focal findings. Muscle tone: normal. Muscle strength: 4/5 DTR: 0+ Plantar reflex: [ ] Gait: not examined in bed. Sensory exam: stocking loss. No cerebellar signs elicited. Review of Relevant I have reviewed the following items jessica (where applicable) has been applied. Labs Laboratory Tests Test 08/29/18 16:54 08/29/18 16:57 08/29/18 20:44 08/29/18 21:05 White Blood Count 7.3 x10^3/uL (4.0-11.0) Red Blood Count 4.30 x10^6/uL (4.30-5.70) Hemoglobin 13.5 g/dL (13.0-17.5) Hematocrit 39.8 % (39.0-53.0) Mean Corpuscular Volume 93 fL (79-100) Mean Corpuscular Hemoglobin 31 pg (25-35) Mean Corpuscular Hemoglobin Concent 34 g/dL (31-37) Red Cell Distribution Width 14.3 % (11.5-14.5) Platelet Count 163 x10^3/uL (140-400) Neutrophils (%) (Auto) 75 % (31-73) Lymphocytes (%) (Auto) 18 % (24-48) Monocytes (%) (Auto) 7 % (0-9) Eosinophils (%) (Auto) 0 % (0-3) Basophils (%) (Auto) 1 % (0-3) Neutrophils # (Auto) 5.5 x10^3uL (1.8-7.7) Lymphocytes # (Auto) 1.3 x10^3/uL (1.0-4.8) Monocytes # (Auto) 0.5 x10^3/uL (0.0-1.1) Eosinophils # (Auto) 0.0 x10^3/uL (0.0-0.7) Basophils # (Auto) 0.0 x10^3/uL (0.0-0.2) Prothrombin Time 13.1 SEC (11.7-14.0) Prothromb Time International Ratio 1.0 (0.8-1.1) Activated Partial Thromboplast Time 25 SEC (24-38) Sodium Level 140 mmol/L (136-145) Potassium Level 3.9 mmol/L (3.5-5.1) Chloride Level 100 mmol/L (98-107) Carbon Dioxide Level 27 mmol/L (21-32) Anion Gap 13 (6-14) Blood Urea Nitrogen 22 mg/dL (8-26) Creatinine 1.6 mg/dL (0.7-1.3) Estimated GFR (Cockcroft-Gault) 52.3 BUN/Creatinine Ratio 14 (6-20) Glucose Level 237 mg/dL (70-99) Lactic Acid Level 2.9 mmol/L (0.4-2.0) 2.6 mmol/L (0.4-2.0) Calcium Level 9.7 mg/dL (8.5-10.1) Magnesium Level 1.8 mg/dL (1.8-2.4) Total Bilirubin 0.8 mg/dL (0.2-1.0) Aspartate Amino Transf (AST/SGOT) 16 U/L (15-37) Alanine Aminotransferase (ALT/SGPT) 34 U/L (16-63) Alkaline Phosphatase 125 U/L (46-116) Troponin I Quantitative < 0.017 ng/mL (0.000-0.055) VR-Kct-D-Type Natriuretic Peptide 41 pg/mL (0-124) Total Protein 7.3 g/dL (6.4-8.2) Albumin 4.1 g/dL (3.4-5.0) Albumin/Globulin Ratio 1.3 (1.0-1.7) Procalcitonin < 0.10 ng/mL (0.00-0.10) Thyroid Stimulating Hormone (TSH) 0.772 uIU/mL (0.358-3.74) Influenza Type A Antigen Negative (NEGATIVE) Influenza Type B Antigen Negative (NEGATIVE) Glucose (Fingerstick) 141 mg/dL (70-99) Test 08/30/18 00:45 08/30/18 07:23 08/30/18 11:58 08/30/18 16:00 White Blood Count 8.6 x10^3/uL (4.0-11.0) Red Blood Count 3.87 x10^6/uL (4.30-5.70) Hemoglobin 12.3 g/dL (13.0-17.5) Hematocrit 35.7 % (39.0-53.0) Mean Corpuscular Volume 92 fL (79-100) Mean Corpuscular Hemoglobin 32 pg (25-35) Mean Corpuscular Hemoglobin Concent 34 g/dL (31-37) Red Cell Distribution Width 13.8 % (11.5-14.5) Platelet Count 144 x10^3/uL (140-400) Neutrophils (%) (Auto) 77 % (31-73) Lymphocytes (%) (Auto) 14 % (24-48) Monocytes (%) (Auto) 9 % (0-9) Eosinophils (%) (Auto) 0 % (0-3) Basophils (%) (Auto) 0 % (0-3) Neutrophils # (Auto) 6.7 x10^3uL (1.8-7.7) Lymphocytes # (Auto) 1.2 x10^3/uL (1.0-4.8) Monocytes # (Auto) 0.8 x10^3/uL (0.0-1.1) Eosinophils # (Auto) 0.0 x10^3/uL (0.0-0.7) Basophils # (Auto) 0.0 x10^3/uL (0.0-0.2) Sodium Level 140 mmol/L (136-145) Potassium Level 3.6 mmol/L (3.5-5.1) Chloride Level 104 mmol/L (98-107) Carbon Dioxide Level 27 mmol/L (21-32) Anion Gap 9 (6-14) Blood Urea Nitrogen 21 mg/dL (8-26) Creatinine 1.3 mg/dL (0.7-1.3) Estimated GFR (Cockcroft-Gault) 66.4 BUN/Creatinine Ratio 16 (6-20) Glucose Level 154 mg/dL (70-99) Lactic Acid Level 1.4 mmol/L (0.4-2.0) Calcium Level 8.8 mg/dL (8.5-10.1) Total Bilirubin 0.6 mg/dL (0.2-1.0) Aspartate Amino Transf (AST/SGOT) 13 U/L (15-37) Alanine Aminotransferase (ALT/SGPT) 28 U/L (16-63) Alkaline Phosphatase 103 U/L (46-116) Total Protein 6.3 g/dL (6.4-8.2) Albumin 3.2 g/dL (3.4-5.0) Albumin/Globulin Ratio 1.0 (1.0-1.7) Glucose (Fingerstick) 115 mg/dL (70-99) 159 mg/dL (70-99) Urine Collection Type Unknown Urine Color Yellow Urine Clarity Clear Urine pH 5.5 Urine Specific [place] 1.020 Urine Protein Negative mg/dL (NEG-TRACE) Urine Glucose (UA) 500 mg/dL (NEG) Urine Ketones (Stick) Negative mg/dL (NEG) Urine Blood Negative (NEG) Urine Nitrite Negative (NEG) Urine Bilirubin Negative (NEG) Urine Urobilinogen Dipstick 1.0 mg/dL (0.2 mg/dL) Urine Leukocyte Esterase Negative (NEG) Urine RBC 0 /HPF (0-2) Urine WBC Occ /HPF (0-4) Urine Bacteria 0 /HPF (0-FEW) Urine Mucus Mod /LPF Test 08/30/18 17:09 08/30/18 20:35 08/31/18 05:00 08/31/18 07:25 Glucose (Fingerstick) 162 mg/dL (70-99) 139 mg/dL (70-99) 147 mg/dL (70-99) Erythrocyte Sedimentation Rate 21 (0-15) Creatine Kinase 144 U/L (39-308) C-Reactive Protein, Quantitative 14.1 mg/L (0-3.3) Vitamin B12 Level 408 pg/mL (247-911) Laboratory Tests Test 08/30/18 11:58 08/30/18 16:00 08/30/18 17:09 08/30/18 20:35 Glucose (Fingerstick) 159 mg/dL (70-99) 162 mg/dL (70-99) 139 mg/dL (70-99) Urine Collection Type Unknown Urine Color Yellow Urine Clarity Clear Urine pH 5.5 Urine Specific [place] 1.020 Urine Protein Negative mg/dL (NEG-TRACE) Urine Glucose (UA) 500 mg/dL (NEG) Urine Ketones (Stick) Negative mg/dL (NEG) Urine Blood Negative (NEG) Urine Nitrite Negative (NEG) Urine Bilirubin Negative (NEG) Urine Urobilinogen Dipstick 1.0 mg/dL (0.2 mg/dL) Urine Leukocyte Esterase Negative (NEG) Urine RBC 0 /HPF (0-2) Urine WBC Occ /HPF (0-4) Urine Bacteria 0 /HPF (0-FEW) Urine Mucus Mod /LPF Test 08/31/18 05:00 08/31/18 07:25 Erythrocyte Sedimentation Rate 21 (0-15) Creatine Kinase 144 U/L (39-308) C-Reactive Protein, Quantitative 14.1 mg/L (0-3.3) Vitamin B12 Level 408 pg/mL (247-911) Glucose (Fingerstick) 147 mg/dL (70-99) Microbiology 08/29/18 Blood Culture - Preliminary, Resulted NO GROWTH AFTER 1 DAY Medications Current Medications Aspirin (Yuliya Aspirin) 325 mg 1X ONCE PO Last administered on 08/29/18at 18: 01; Start 08/29/18 at 17:00; Stop 08/29/18 at 17:14; Status DC Famotidine (Pepcid Vial) 20 mg 1X ONCE IVP Last administered on 08/29/18at 18: 39; Start 08/29/18 at 18:30; Stop 08/29/18 at 18:31; Status DC Sodium Chloride 1,000 ml @ 1,000 mls/hr 1X ONCE IV Last administered on 08/29at 19:30; Start 08/29/18 at 19:30; Stop 08/29/18 at 20:29; Status DC Ondansetron HCl (Zofran) 4 mg PRN Q8HRS PRN IV NAUSEA/VOMITING; Start at 20:30; Stop 08/30/18 at 20:29; Status DC Morphine Sulfate (Morphine Sulfate) 2 mg PRN Q2HR PRN IV PAIN; Start 08/29/18 at 20:30; Stop 08/30/18 at 20:29; Status DC Acetaminophen (Tylenol) 650 mg PRN Q4HRS PRN PO FEVER; Start 08/29/18 at 20:30 ; Stop 08/30/18 at 20:29; Status DC Sodium Chloride 1,000 ml @ 100 mls/hr 1X ONCE IV Last administered on at 22:21; Start 08/29/18 at 21:00; Stop 08/30/18 at 06:59; Status DC Ciprofloxacin/ Dextrose 200 ml @ 200 mls/hr Q12HR IV Last administered on at 08:22; Start 08/29/18 at 21:00 Chlorpromazine HCl (Thorazine) 25 mg PRN Q6HRS PRN PO HICCUPS Last administered on 08/29/18at 22:21; Start 08/29/18 at 22:00 Enoxaparin Sodium (Lovenox Per Pharmacy Prophylaxis Dosing) 1 each PRN DAILY PRN [facility] SEE COMMENTS; Start 08/29/18 at 22:00 Enoxaparin Sodium (Lovenox 40mg Syringe) 40 mg Q24H SQ Last administered on 09/04at 22:26; Start 08/29/18 at 22:00 Aspirin (Ecotrin) 81 mg DAILY PO Last administered on 08/31/18at 08:21; Start 08/30/18 at 15:00 Atorvastatin Calcium (Lipitor) 80 mg QHS PO Last administered on 08/30/18at 21: 27; Start 08/30/18 at 21:00 Glipizide (Glucotrol) 10 mg BIDBFRMEAL PO Last administered on 08/31/18at 08:21 ; Start 08/30/18 at 16:30 Metformin HCl (Glucophage) 1,000 mg BIDWMEALS PO Last administered on at 08:21; Start 08/30/18 at 17:00 Lactobacillus Rhamnosus (Culturelle) 1 cap BID PO Last administered on at 08:21; Start 08/30/18 at 21:00 Active Scripts Active Reported Lipitor (Atorvastatin Calcium) 80 Mg Tablet 1 Tab PO HS Glipizide 10 Mg Tablet 1 Tab PO BID Metformin Hcl 1,000 Mg Tablet 1,000 Mg PO BIDWMEALS Aspir-Low (Aspirin) 81 Mg Tablet.dr 1 Tab PO DAILY Vitals/I & O Vital Sign - Last 24 Hours 08/30/18 08/30/18 08/30/18 08/30/18 13:27 13:28 13:28 15:00 Temp 98.2 98.2 Pulse 84 88 99 74 Resp 20 B/P (MAP) 136/67 (90) 144/74 (97) 122/61 (81) 123/65 (84) Pulse Ox 97 O2 Delivery Room Air 08/30/18 08/30/18 08/30/18 08/31/18 19:00 20:19 23:00 03:00 Temp 98.4 99.1 99.5 98.4 99.1 99.5 Pulse 104 82 79 Resp 18 18 18 B/P (MAP) 159/90 (113) 140/73 (95) 147/71 (96) Pulse Ox 99 97 94 O2 Delivery Room Air Room Air Room Air Room Air 08/31/18 08/31/18 07:00 07:21 Temp 99.8 99.8 Pulse 76 Resp 18 B/P (MAP) 140/68 (92) Pulse Ox 98 O2 Delivery Room Air Room Air Intake and Output 08/30/18 08/30/18 08/31/18 15:00 23:00 07:00 Intake Total 440 ml Balance 440 ml MIRI HICKMAN MD Aug 31, 2018 11:28
[2018-08-31 15:00] VITALS: BP 134/71
[2018-08-31 19:45] VITALS: BP 144/71
[2018-08-31] MEDS: ENOXAPARIN 40 MG/0.4 ML SYRINGE. SQ SCH (20:40)
[2018-08-31] MEDS: ATORVASTATIN CALCIUM 40 MG TABLET. PO SCH (20:40)
[2018-08-31] MEDS ORDERED: traZODone 100 MG TABLET. PO PRN (22:15)
[2018-08-31 23:16] VITALS: BP 148/74
[2018-09-01] MEDS: chlorproMAZINE 25 MG TABLET PO PRN (00:25)
[2018-09-01 03:32] VITALS: BP_SYST 78
[2018-09-01 05:09] LABS: BASO % 0 % (0-3); EOS % 0 % (0-3); HEMATOCRIT 38.1 % (39.0-53.0); HEMOGLOBIN 12.8 g/dL (13.0-17.5); LYMPH % 14 % (24-48); MEAN CORPUSCULAR HEMOGLOBIN 31 pg (25-35); MEAN CORPUSCULAR HGB CONC 34 g/dL (31-37); MEAN CORPUSCULAR VOLUME 93 fL (79-100); MONO # 0.6 x10^3/uL (0.0-1.1); MONO % 8 % (0-9); NEUT # 5.7 x10^3uL (1.8-7.7); NEUT % 78 % (31-73); PLATELET COUNT 143 x10^3/uL (140-400); RED BLOOD COUNT 4.09 x10^6/uL (4.30-5.70); RED CELL DISTRIBUTION WIDTH 13.9 % (11.5-14.5); WHITE BLOOD COUNT 7.4 x10^3/uL (4.0-11.0)
[2018-09-01 05:44] LABS: ALBUMIN 3.3 g/dL (3.4-5.0); CALCIUM 9.4 mg/dL (8.5-10.1); CREATININE 1.2 mg/dL (0.7-1.3); GFR 72.9; POTASSIUM 3.3 mmol/L (3.5-5.1); TOTAL BILIRUBIN 0.8 mg/dL (0.2-1.0); TOTAL PROTEIN 6.7 g/dL (6.4-8.2)
[2018-09-01 07:00] VITALS: BP 120/94
[2018-09-01] MEDS ORDERED: CIPROFLOXACIN HCL 250 MG TABLET. PO SCH (09:00)
[2018-09-01 11:00] VITALS: BP 130/72
[2018-09-01] MEDS: metFORMIN 500 MG TABLET PO SCH ×2 (11:13→17:35)
[2018-09-01] MEDS: glipiZIDE 5 MG TABLET PO SCH ×2 (11:14→17:35)
[2018-09-01] MEDS: ASPIRIN ENTERIC COATED 81 MG TABLET.DR. PO SCH (11:14)
[2018-09-01] MEDS: LACTOBACILLUS RHAMNOSUS GG 1 CAPSULE. PO SCH ×2 (11:14→21:36)
[2018-09-01] MEDS ORDERED: ACETAMINOPHEN 325 MG TABLET. PO PRN (13:30)
[2018-09-01] MEDS ORDERED: ONDANSETRON PF 4 MG/2 ML VIAL. IV PRN (13:30)
[2018-09-01] MEDS ORDERED: traMADol 50 MG TABLET PO PRN (13:30)
[2018-09-01] MEDS ORDERED: MORPHINE SULFATE 4 MG/ML VIAL. IV PRN (13:30)
[2018-09-01] MEDS ORDERED: DOCUSATE SODIUM 100 MG CAPSULE. PO PRN (13:30)
--- NOTE | 2018-09-01 13:32 | PDOC ---
PROGRESS NOTES Chief Complaint Chief Complaint Weakness, and debility, recent illness, prior PNA, neuropathy, dementia Hiccough, resolved Abnormal EKG: SR with LVH/LAFB, no cardiac symptoms. PSVT: x1 brief episode otherwise maintain SR with good BP control without antiHTN Presyncope with nontraumatic fall: could be related to poor hydration or arrhythmia. DM2: per PCP moderate dementia Hx of CVA, pt denies plan: fu with neuro PTOT sw for SNF on monday cont dm2 meds ,SSI DVT PPX DC CIPro, not sure why on abx History of Present Illness History of Present Illness Pt seen and examined with PT and RN and son pt feels good, wanna go home, but agreed to SNF with SW Vitals Vitals Vital Signs Date Time Temp Pulse Resp B/P (MAP) Pulse Ox O2 Delivery O2 Flow Rate FiO2 09/01/18 11:00 97.9 82 20 130/72 (91) 96 Room Air 97.9 Physical Exam General: Cooperative, No acute distress, Other (weak) Heart: Regular rate (S), Normal S1, Normal S2, Other (3/6 systolic murmur to LLS border) Lungs: Clear Abdomen: Normal bowel sounds, Soft, No tenderness Extremities: No cyanosis, No edema Skin: No breakdown, No significant lesion Labs LABS Laboratory Tests Test 08/31/18 16:35 08/31/18 20:45 09/01/18 03:15 09/01/18 07:06 Glucose (Fingerstick) 119 mg/dL (70-99) 154 mg/dL (70-99) 133 mg/dL (70-99) White Blood Count 7.4 x10^3/uL (4.0-11.0) Red Blood Count 4.09 x10^6/uL (4.30-5.70) Hemoglobin 12.8 g/dL (13.0-17.5) Hematocrit 38.1 % (39.0-53.0) Mean Corpuscular Volume 93 fL (79-100) Mean Corpuscular Hemoglobin 31 pg (25-35) Mean Corpuscular Hemoglobin Concent 34 g/dL (31-37) Red Cell Distribution Width 13.9 % (11.5-14.5) Platelet Count 143 x10^3/uL (140-400) Neutrophils (%) (Auto) 78 % (31-73) Lymphocytes (%) (Auto) 14 % (24-48) Monocytes (%) (Auto) 8 % (0-9) Eosinophils (%) (Auto) 0 % (0-3) Basophils (%) (Auto) 0 % (0-3) Neutrophils # (Auto) 5.7 x10^3uL (1.8-7.7) Lymphocytes # (Auto) 1.0 x10^3/uL (1.0-4.8) Monocytes # (Auto) 0.6 x10^3/uL (0.0-1.1) Eosinophils # (Auto) 0.0 x10^3/uL (0.0-0.7) Basophils # (Auto) 0.0 x10^3/uL (0.0-0.2) Sodium Level 140 mmol/L (136-145) Potassium Level 3.3 mmol/L (3.5-5.1) Chloride Level 102 mmol/L (98-107) Carbon Dioxide Level 27 mmol/L (21-32) Anion Gap 11 (6-14) Blood Urea Nitrogen 18 mg/dL (8-26) Creatinine 1.2 mg/dL (0.7-1.3) Estimated GFR (Cockcroft-Gault) 72.9 BUN/Creatinine Ratio 15 (6-20) Glucose Level 156 mg/dL (70-99) Calcium Level 9.4 mg/dL (8.5-10.1) Total Bilirubin 0.8 mg/dL (0.2-1.0) Aspartate Amino Transf (AST/SGOT) 25 U/L (15-37) Alanine Aminotransferase (ALT/SGPT) 37 U/L (16-63) Alkaline Phosphatase 108 U/L (46-116) Total Protein 6.7 g/dL (6.4-8.2) Albumin 3.3 g/dL (3.4-5.0) Albumin/Globulin Ratio 1.0 (1.0-1.7) Test 09/01/18 11:06 Glucose (Fingerstick) 96 mg/dL (70-99) Assessment and Plan Assessmemt and Plan Problems Medical Problems: (1) Acute electrocardiogram changes Status: Acute Comment Review of Relevant I have reviewed the following items jessica (where applicable) has been applied. Labs Laboratory Tests Test 08/30/18 16:00 12/13/18 17:09 08/30/18 20:35 08/31/18 05:00 Urine Collection Type Unknown Urine Color Yellow Urine Clarity Clear Urine pH 5.5 Urine Specific [place] 1.020 Urine Protein Negative mg/dL (NEG-TRACE) Urine Glucose (UA) 500 mg/dL (NEG) Urine Ketones (Stick) Negative mg/dL (NEG) Urine Blood Negative (NEG) Urine Nitrite Negative (NEG) Urine Bilirubin Negative (NEG) Urine Urobilinogen Dipstick 1.0 mg/dL (0.2 mg/dL) Urine Leukocyte Esterase Negative (NEG) Urine RBC 0 /HPF (0-2) Urine WBC Occ /HPF (0-4) Urine Bacteria 0 /HPF (0-FEW) Urine Mucus Mod /LPF Glucose (Fingerstick) 162 mg/dL (70-99) 139 mg/dL (70-99) Erythrocyte Sedimentation Rate 21 (0-15) Creatine Kinase 144 U/L (39-308) C-Reactive Protein, Quantitative 14.1 mg/L (0-3.3) Vitamin B12 Level 408 pg/mL (247-911) Test 08/31/18 07:25 08/31/18 11:27 08/31/18 16:35 08/31/18 20:45 Glucose (Fingerstick) 147 mg/dL (70-99) 193 mg/dL (70-99) 119 mg/dL (70-99) 154 mg/dL (70-99) Test 09/01/18 03:15 09/01/18 07:06 09/01/18 11:06 White Blood Count 7.4 x10^3/uL (4.0-11.0) Red Blood Count 4.09 x10^6/uL (4.30-5.70) Hemoglobin 12.8 g/dL (13.0-17.5) Hematocrit 38.1 % (39.0-53.0) Mean Corpuscular Volume 93 fL (79-100) Mean Corpuscular Hemoglobin 31 pg (25-35) Mean Corpuscular Hemoglobin Concent 34 g/dL (31-37) Red Cell Distribution Width 13.9 % (11.5-14.5) Platelet Count 143 x10^3/uL (140-400) Neutrophils (%) (Auto) 78 % (31-73) Lymphocytes (%) (Auto) 14 % (24-48) Monocytes (%) (Auto) 8 % (0-9) Eosinophils (%) (Auto) 0 % (0-3) Basophils (%) (Auto) 0 % (0-3) Neutrophils # (Auto) 5.7 x10^3uL (1.8-7.7) Lymphocytes # (Auto) 1.0 x10^3/uL (1.0-4.8) Monocytes # (Auto) 0.6 x10^3/uL (0.0-1.1) Eosinophils # (Auto) 0.0 x10^3/uL (0.0-0.7) Basophils # (Auto) 0.0 x10^3/uL (0.0-0.2) Sodium Level 140 mmol/L (136-145) Potassium Level 3.3 mmol/L (3.5-5.1) Chloride Level 102 mmol/L (98-107) Carbon Dioxide Level 27 mmol/L (21-32) Anion Gap 11 (6-14) Blood Urea Nitrogen 18 mg/dL (8-26) Creatinine 1.2 mg/dL (0.7-1.3) Estimated GFR (Cockcroft-Gault) 72.9 BUN/Creatinine Ratio 15 (6-20) Glucose Level 156 mg/dL (70-99) Calcium Level 9.4 mg/dL (8.5-10.1) Total Bilirubin 0.8 mg/dL (0.2-1.0) Aspartate Amino Transf (AST/SGOT) 25 U/L (15-37) Alanine Aminotransferase (ALT/SGPT) 37 U/L (16-63) Alkaline Phosphatase 108 U/L (46-116) Total Protein 6.7 g/dL (6.4-8.2) Albumin 3.3 g/dL (3.4-5.0) Albumin/Globulin Ratio 1.0 (1.0-1.7) Glucose (Fingerstick) 133 mg/dL (70-99) 96 mg/dL (70-99) Laboratory Tests Test 08/31/18 16:35 08/31/18 20:45 09/01/18 03:15 09/01/18 07:06 Glucose (Fingerstick) 119 mg/dL (70-99) 154 mg/dL (70-99) 133 mg/dL (70-99) White Blood Count 7.4 x10^3/uL (4.0-11.0) Red Blood Count 4.09 x10^6/uL (4.30-5.70) Hemoglobin 12.8 g/dL (13.0-17.5) Hematocrit 38.1 % (39.0-53.0) Mean Corpuscular Volume 93 fL (79-100) Mean Corpuscular Hemoglobin 31 pg (25-35) Mean Corpuscular Hemoglobin Concent 34 g/dL (31-37) Red Cell Distribution Width 13.9 % (11.5-14.5) Platelet Count 143 x10^3/uL (140-400) Neutrophils (%) (Auto) 78 % (31-73) Lymphocytes (%) (Auto) 14 % (24-48) Monocytes (%) (Auto) 8 % (0-9) Eosinophils (%) (Auto) 0 % (0-3) Basophils (%) (Auto) 0 % (0-3) Neutrophils # (Auto) 5.7 x10^3uL (1.8-7.7) Lymphocytes # (Auto) 1.0 x10^3/uL (1.0-4.8) Monocytes # (Auto) 0.6 x10^3/uL (0.0-1.1) Eosinophils # (Auto) 0.0 x10^3/uL (0.0-0.7) Basophils # (Auto) 0.0 x10^3/uL (0.0-0.2) Sodium Level 140 mmol/L (136-145) Potassium Level 3.3 mmol/L (3.5-5.1) Chloride Level 102 mmol/L (98-107) Carbon Dioxide Level 27 mmol/L (21-32) Anion Gap 11 (6-14) Blood Urea Nitrogen 18 mg/dL (8-26) Creatinine 1.2 mg/dL (0.7-1.3) Estimated GFR (Cockcroft-Gault) 72.9 BUN/Creatinine Ratio 15 (6-20) Glucose Level 156 mg/dL (70-99) Calcium Level 9.4 mg/dL (8.5-10.1) Total Bilirubin 0.8 mg/dL (0.2-1.0) Aspartate Amino Transf (AST/SGOT) 25 U/L (15-37) Alanine Aminotransferase (ALT/SGPT) 37 U/L (16-63) Alkaline Phosphatase 108 U/L (46-116) Total Protein 6.7 g/dL (6.4-8.2) Albumin 3.3 g/dL (3.4-5.0) Albumin/Globulin Ratio 1.0 (1.0-1.7) Test 09/01/18 11:06 Glucose (Fingerstick) 96 mg/dL (70-99) Microbiology 08/29/18 Blood Culture - Preliminary, Resulted NO GROWTH AFTER 2 DAYS Medications Current Medications Aspirin ([employer] Aspirin) 325 mg 1X ONCE PO Last administered on 08/29/18at 18: 01; Start 08/29/18 at 17:00; Stop 08/29/18 at 17:14; Status DC Famotidine (Pepcid Vial) 20 mg 1X ONCE IVP Last administered on 08/29/18at 18: 39; Start 08/29/18 at 18:30; Stop 08/29/18 at 18:31; Status DC Sodium Chloride 1,000 ml @ 1,000 mls/hr 1X ONCE IV Last administered on 08/29at 19:30; Start 08/29/18 at 19:30; Stop 08/29/18 at 20:29; Status DC Ondansetron HCl (Zofran) 4 mg PRN Q8HRS PRN IV NAUSEA/VOMITING; Start at 20:30; Stop 08/30/18 at 20:29; Status DC Morphine Sulfate (Morphine Sulfate) 2 mg PRN Q2HR PRN IV PAIN; Start 08/29/18 at 20:30; Stop 08/30/18 at 20:29; Status DC Acetaminophen (Tylenol) 650 mg PRN Q4HRS PRN PO FEVER; Start 08/29/18 at 20:30 ; Stop 08/30/18 at 20:29; Status DC Sodium Chloride 1,000 ml @ 100 mls/hr 1X ONCE IV Last administered on at 22:21; Start 08/29/18 at 21:00; Stop 08/30/18 at 06:59; Status DC Ciprofloxacin/ Dextrose 200 ml @ 200 mls/hr Q12HR IV Last administered on at 20:40; Start 08/29/18 at 21:00; Stop 09/01/18 at 07:18; Status DC Chlorpromazine HCl (Thorazine) 25 mg PRN Q6HRS PRN PO HICCUPS Last administered on 09/01/18at 00:25; Start 08/29/18 at 22:00 Enoxaparin Sodium (Lovenox Per Pharmacy Prophylaxis Dosing) 1 each PRN DAILY PRN [facility] SEE COMMENTS; Start 08/29/18 at 22:00 Enoxaparin Sodium (Lovenox 40mg Syringe) 40 mg Q24H SQ Last administered on 09/04at 22:26; Start 08/29/18 at 22:00 Aspirin (Ecotrin) 81 mg DAILY PO Last administered on 09/01/18at 11:14; Start 08/30/18 at 15:00 Atorvastatin Calcium (Lipitor) 80 mg QHS PO Last administered on 08/31/18at 20: 40; Start 08/30/18 at 21:00 Glipizide (Glucotrol) 10 mg BIDBFRMEAL PO Last administered on 09/01/18at 11:14 ; Start 08/30/18 at 16:30 Metformin HCl (Glucophage) 1,000 mg BIDWMEALS PO Last administered on at 11:13; Start 08/30/18 at 17:00 Lactobacillus Rhamnosus (Culturelle) 1 cap BID PO Last administered on at 11:14; Start 08/30/18 at 21:00 Trazodone HCl (Desyrel) 100 mg PRN QHS PRN PO INSOMNIA; Start 08/31/18 at 22: 15 Ciprofloxacin (Cipro) 500 mg BID PO Last administered on 09/01/18at 11:14; Start 09/01/18 at 09:00 Active Scripts Active Reported Lipitor (Atorvastatin Calcium) 80 Mg Tablet 1 Tab PO HS Glipizide 10 Mg Tablet 1 Tab PO BID Metformin Hcl 1,000 Mg Tablet 1,000 Mg PO BIDWMEALS Aspir-Low (Aspirin) 81 Mg Tablet. 1 Tab PO DAILY Vitals/I & O Vital Sign - Last 24 Hours 08/31/18 08/31/18 08/31/18 08/31/18 15:00 19:45 20:03 23:16 Temp 98.7 98.2 98.8 98.7 98.2 98.8 Pulse 77 84 81 Resp 18 18 18 B/P (MAP) 134/71 (92) 144/71 (95) 148/74 (98) Pulse Ox 96 94 95 O2 Delivery Room Air Room Air Room Air Room Air 09/01/18 09/01/18 09/01/18 09/01/18 03:32 07:00 08:00 11:00 Temp 98.3 98.4 97.9 98.3 98.4 97.9 Pulse 95 98 82 Resp 18 20 20 B/P (MAP) 78/ 120/94 (103) 130/72 (91) Pulse Ox 97 95 96 O2 Delivery Room Air Room Air Room Air Room Air Intake and Output 08/31/18 08/31/18 09/01/18 15:00 23:00 07:00 Intake Total 300 ml 430 ml 250 ml Balance 300 ml 430 ml 250 ml MÓNICA HALL MD Sep 01, 2018 13:32
[2018-09-01] MEDS ORDERED: POTASSIUM CHLORIDE 20 MEQ TABLET.ER. PO ONE (14:00)
[2018-09-01 15:19] VITALS: BP 112/63
[2018-09-01 19:10] VITALS: BP 113/49
[2018-09-01] MEDS: ENOXAPARIN 40 MG/0.4 ML SYRINGE. SQ SCH (21:36)
[2018-09-01] MEDS: ATORVASTATIN CALCIUM 40 MG TABLET. PO SCH (21:36)
[2018-09-01 23:15] VITALS: BP 130/66
[2018-09-02 03:37] VITALS: BP 115/61
[2018-09-02 04:57] LABS: BASO % 1 % (0-3); EOS % 1 % (0-3); HEMATOCRIT 35.9 % (39.0-53.0); HEMOGLOBIN 12.3 g/dL (13.0-17.5); LYMPH # 1.5 x10^3/uL (1.0-4.8); LYMPH % 27 % (24-48); MEAN CORPUSCULAR HEMOGLOBIN 32 pg (25-35); MEAN CORPUSCULAR HGB CONC 34 g/dL (31-37); MEAN CORPUSCULAR VOLUME 92 fL (79-100); MONO # 0.4 x10^3/uL (0.0-1.1); MONO % 7 % (0-9); NEUT # 3.6 x10^3uL (1.8-7.7); NEUT % 65 % (31-73); PLATELET COUNT 142 x10^3/uL (140-400); RED BLOOD COUNT 3.89 x10^6/uL (4.30-5.70); RED CELL DISTRIBUTION WIDTH 13.8 % (11.5-14.5); WHITE BLOOD COUNT 5.5 x10^3/uL (4.0-11.0)
[2018-09-02 05:53] LABS: CREATININE 1.4 mg/dL (0.7-1.3); POTASSIUM 3.7 mmol/L (3.5-5.1)
[2018-09-02 07:20] VITALS: BP 126/70
[2018-09-02] MEDS: glipiZIDE 5 MG TABLET PO SCH ×2 (09:07→16:44)
[2018-09-02] MEDS: LACTOBACILLUS RHAMNOSUS GG 1 CAPSULE. PO SCH ×2 (09:07→21:43)
[2018-09-02] MEDS: metFORMIN 500 MG TABLET PO SCH ×2 (09:07→16:43)
[2018-09-02] MEDS: ASPIRIN ENTERIC COATED 81 MG TABLET.DR. PO SCH (09:07)
[2018-09-02 11:39] VITALS: BP 138/70
--- NOTE | 2018-09-02 12:25 | PDOC ---
PROGRESS NOTES Chief Complaint Chief Complaint Weakness, and debility, recent illness, prior PNA, neuropathy, dementia Hiccough, resolved Abnormal EKG: SR with LVH/LAFB, no cardiac symptoms. PSVT: x1 brief episode otherwise maintain SR with good BP control without antiHTN Presyncope with nontraumatic fall: could be related to poor hydration or arrhythmia. DM2: per PCP moderate dementia Hx of CVA, pt denies plan: fu with neuro PTOT sw for SNF on monday cont dm2 meds ,SSI DVT PPX DC CIPro, not sure why on abx History of Present Illness History of Present Illness Pt seen and examined with PT and RN and son pt feels good, wanna go home, but agreed to SNF with SW Vitals Vitals Vital Signs Date Time Temp Pulse Resp B/P (MAP) Pulse Ox O2 Delivery O2 Flow Rate FiO2 09/02/18 11:39 99.4 86 18 138/70 (92) 97 Room Air 99.4 Physical Exam General: Cooperative, No acute distress, Other (weak) Heart: Regular rate (S), Normal S1, Normal S2, Other (3/6 systolic murmur to LLS border) Lungs: Clear Abdomen: Normal bowel sounds, Soft, No tenderness Extremities: No cyanosis, No edema Skin: No breakdown, No significant lesion Labs LABS Laboratory Tests Test 09/01/18 17:01 09/01/18 20:59 09/02/18 03:15 09/02/18 07:55 Glucose (Fingerstick) 111 mg/dL (70-99) 122 mg/dL (70-99) 90 mg/dL (70-99) White Blood Count 5.5 x10^3/uL (4.0-11.0) Red Blood Count 3.89 x10^6/uL (4.30-5.70) Hemoglobin 12.3 g/dL (13.0-17.5) Hematocrit 35.9 % (39.0-53.0) Mean Corpuscular Volume 92 fL (79-100) Mean Corpuscular Hemoglobin 32 pg (25-35) Mean Corpuscular Hemoglobin Concent 34 g/dL (31-37) Red Cell Distribution Width 13.8 % (11.5-14.5) Platelet Count 142 x10^3/uL (140-400) Neutrophils (%) (Auto) 65 % (31-73) Lymphocytes (%) (Auto) 27 % (24-48) Monocytes (%) (Auto) 7 % (0-9) Eosinophils (%) (Auto) 1 % (0-3) Basophils (%) (Auto) 1 % (0-3) Neutrophils # (Auto) 3.6 x10^3uL (1.8-7.7) Lymphocytes # (Auto) 1.5 x10^3/uL (1.0-4.8) Monocytes # (Auto) 0.4 x10^3/uL (0.0-1.1) Eosinophils # (Auto) 0.0 x10^3/uL (0.0-0.7) Basophils # (Auto) 0.0 x10^3/uL (0.0-0.2) Sodium Level 140 mmol/L (136-145) Potassium Level 3.7 mmol/L (3.5-5.1) Chloride Level 104 mmol/L (98-107) Carbon Dioxide Level 25 mmol/L (21-32) Anion Gap 11 (6-14) Blood Urea Nitrogen 22 mg/dL (8-26) Creatinine 1.4 mg/dL (0.7-1.3) Estimated GFR (Cockcroft-Gault) 61.0 Glucose Level 98 mg/dL (70-99) Calcium Level 9.0 mg/dL (8.5-10.1) Test 09/02/18 12:06 Glucose (Fingerstick) 130 mg/dL (70-99) Assessment and Plan Assessmemt and Plan Problems Medical Problems: (1) Acute electrocardiogram changes Status: Acute Comment Review of Relevant I have reviewed the following items jessica (where applicable) has been applied. Labs Laboratory Tests Test 08/31/18 16:35 08/31/18 20:45 09/01/18 03:15 09/01/18 07:06 Glucose (Fingerstick) 119 mg/dL (70-99) 154 mg/dL (70-99) 133 mg/dL (70-99) White Blood Count 7.4 x10^3/uL (4.0-11.0) Red Blood Count 4.09 x10^6/uL (4.30-5.70) Hemoglobin 12.8 g/dL (13.0-17.5) Hematocrit 38.1 % (39.0-53.0) Mean Corpuscular Volume 93 fL (79-100) Mean Corpuscular Hemoglobin 31 pg (25-35) Mean Corpuscular Hemoglobin Concent 34 g/dL (31-37) Red Cell Distribution Width 13.9 % (11.5-14.5) Platelet Count 143 x10^3/uL (140-400) Neutrophils (%) (Auto) 78 % (31-73) Lymphocytes (%) (Auto) 14 % (24-48) Monocytes (%) (Auto) 8 % (0-9) Eosinophils (%) (Auto) 0 % (0-3) Basophils (%) (Auto) 0 % (0-3) Neutrophils # (Auto) 5.7 x10^3uL (1.8-7.7) Lymphocytes # (Auto) 1.0 x10^3/uL (1.0-4.8) Monocytes # (Auto) 0.6 x10^3/uL (0.0-1.1) Eosinophils # (Auto) 0.0 x10^3/uL (0.0-0.7) Basophils # (Auto) 0.0 x10^3/uL (0.0-0.2) Sodium Level 140 mmol/L (136-145) Potassium Level 3.3 mmol/L (3.5-5.1) Chloride Level 102 mmol/L (98-107) Carbon Dioxide Level 27 mmol/L (21-32) Anion Gap 11 (6-14) Blood Urea Nitrogen 18 mg/dL (8-26) Creatinine 1.2 mg/dL (0.7-1.3) Estimated GFR (Cockcroft-Gault) 72.9 BUN/Creatinine Ratio 15 (6-20) Glucose Level 156 mg/dL (70-99) Calcium Level 9.4 mg/dL (8.5-10.1) Total Bilirubin 0.8 mg/dL (0.2-1.0) Aspartate Amino Transf (AST/SGOT) 25 U/L (15-37) Alanine Aminotransferase (ALT/SGPT) 37 U/L (16-63) Alkaline Phosphatase 108 U/L (46-116) Total Protein 6.7 g/dL (6.4-8.2) Albumin 3.3 g/dL (3.4-5.0) Albumin/Globulin Ratio 1.0 (1.0-1.7) Test 09/01/18 11:06 09/01/18 17:01 09/01/18 20:59 09/02/18 03:15 Glucose (Fingerstick) 96 mg/dL (70-99) 111 mg/dL (70-99) 122 mg/dL (70-99) White Blood Count 5.5 x10^3/uL (4.0-11.0) Red Blood Count 3.89 x10^6/uL (4.30-5.70) Hemoglobin 12.3 g/dL (13.0-17.5) Hematocrit 35.9 % (39.0-53.0) Mean Corpuscular Volume 92 fL (79-100) Mean Corpuscular Hemoglobin 32 pg (25-35) Mean Corpuscular Hemoglobin Concent 34 g/dL (31-37) Red Cell Distribution Width 13.8 % (11.5-14.5) Platelet Count 142 x10^3/uL (140-400) Neutrophils (%) (Auto) 65 % (31-73) Lymphocytes (%) (Auto) 27 % (24-48) Monocytes (%) (Auto) 7 % (0-9) Eosinophils (%) (Auto) 1 % (0-3) Basophils (%) (Auto) 1 % (0-3) Neutrophils # (Auto) 3.6 x10^3uL (1.8-7.7) Lymphocytes # (Auto) 1.5 x10^3/uL (1.0-4.8) Monocytes # (Auto) 0.4 x10^3/uL (0.0-1.1) Eosinophils # (Auto) 0.0 x10^3/uL (0.0-0.7) Basophils # (Auto) 0.0 x10^3/uL (0.0-0.2) Sodium Level 140 mmol/L (136-145) Potassium Level 3.7 mmol/L (3.5-5.1) Chloride Level 104 mmol/L (98-107) Carbon Dioxide Level 25 mmol/L (21-32) Anion Gap 11 (6-14) Blood Urea Nitrogen 22 mg/dL (8-26) Creatinine 1.4 mg/dL (0.7-1.3) Estimated GFR (Cockcroft-Gault) 61.0 Glucose Level 98 mg/dL (70-99) Calcium Level 9.0 mg/dL (8.5-10.1) Test 09/02/18 07:55 09/02/18 12:06 Glucose (Fingerstick) 90 mg/dL (70-99) 130 mg/dL (70-99) Laboratory Tests Test 09/01/18 17:01 09/01/18 20:59 09/02/18 03:15 09/02/18 07:55 Glucose (Fingerstick) 111 mg/dL (70-99) 122 mg/dL (70-99) 90 mg/dL (70-99) White Blood Count 5.5 x10^3/uL (4.0-11.0) Red Blood Count 3.89 x10^6/uL (4.30-5.70) Hemoglobin 12.3 g/dL (13.0-17.5) Hematocrit 35.9 % (39.0-53.0) Mean Corpuscular Volume 92 fL (79-100) Mean Corpuscular Hemoglobin 32 pg (25-35) Mean Corpuscular Hemoglobin Concent 34 g/dL (31-37) Red Cell Distribution Width 13.8 % (11.5-14.5) Platelet Count 142 x10^3/uL (140-400) Neutrophils (%) (Auto) 65 % (31-73) Lymphocytes (%) (Auto) 27 % (24-48) Monocytes (%) (Auto) 7 % (0-9) Eosinophils (%) (Auto) 1 % (0-3) Basophils (%) (Auto) 1 % (0-3) Neutrophils # (Auto) 3.6 x10^3uL (1.8-7.7) Lymphocytes # (Auto) 1.5 x10^3/uL (1.0-4.8) Monocytes # (Auto) 0.4 x10^3/uL (0.0-1.1) Eosinophils # (Auto) 0.0 x10^3/uL (0.0-0.7) Basophils # (Auto) 0.0 x10^3/uL (0.0-0.2) Sodium Level 140 mmol/L (136-145) Potassium Level 3.7 mmol/L (3.5-5.1) Chloride Level 104 mmol/L (98-107) Carbon Dioxide Level 25 mmol/L (21-32) Anion Gap 11 (6-14) Blood Urea Nitrogen 22 mg/dL (8-26) Creatinine 1.4 mg/dL (0.7-1.3) Estimated GFR (Cockcroft-Gault) 61.0 Glucose Level 98 mg/dL (70-99) Calcium Level 9.0 mg/dL (8.5-10.1) Test 09/02/18 12:06 Glucose (Fingerstick) 130 mg/dL (70-99) Microbiology 08/29/18 Blood Culture - Preliminary, Resulted NO GROWTH AFTER 3 DAYS Medications Current Medications Aspirin ([employer] Aspirin) 325 mg 1X ONCE PO Last administered on 08/29/18at 18: 01; Start 08/29/18 at 17:00; Stop 08/29/18 at 17:14; Status DC Famotidine (Pepcid Vial) 20 mg 1X ONCE IVP Last administered on 08/29/18at 18: 39; Start 08/29/18 at 18:30; Stop 08/29/18 at 18:31; Status DC Sodium Chloride 1,000 ml @ 1,000 mls/hr 1X ONCE IV Last administered on 08/29at 19:30; Start 08/29/18 at 19:30; Stop 08/29/18 at 20:29; Status DC Ondansetron HCl (Zofran) 4 mg PRN Q8HRS PRN IV NAUSEA/VOMITING; Start at 20:30; Stop 08/30/18 at 20:29; Status DC Morphine Sulfate (Morphine Sulfate) 2 mg PRN Q2HR PRN IV PAIN; Start 08/29/18 at 20:30; Stop 08/30/18 at 20:29; Status DC Acetaminophen (Tylenol) 650 mg PRN Q4HRS PRN PO FEVER; Start 08/29/18 at 20:30 ; Stop 08/30/18 at 20:29; Status DC Sodium Chloride 1,000 ml @ 100 mls/hr 1X ONCE IV Last administered on at 22:21; Start 08/29/18 at 21:00; Stop 08/30/18 at 06:59; Status DC Ciprofloxacin/ Dextrose 200 ml @ 200 mls/hr Q12HR IV Last administered on at 20:40; Start 08/29/18 at 21:00; Stop 09/01/18 at 07:18; Status DC Chlorpromazine HCl (Thorazine) 25 mg PRN Q6HRS PRN PO HICCUPS Last administered on 09/01/18at 00:25; Start 08/29/18 at 22:00 Enoxaparin Sodium (Lovenox Per Pharmacy Prophylaxis Dosing) 1 each PRN DAILY PRN [facility] SEE COMMENTS; Start 08/29/18 at 22:00 Enoxaparin Sodium (Lovenox 40mg Syringe) 40 mg Q24H SQ Last administered on at 21:36; Start 08/29/18 at 22:00 Aspirin (Ecotrin) 81 mg DAILY PO Last administered on 09/02/18at 09:07; Start 08/30/18 at 15:00 Atorvastatin Calcium (Lipitor) 80 mg QHS PO Last administered on 09/01/18at 21: 36; Start 08/30/18 at 21:00 Glipizide (Glucotrol) 10 mg BIDBFRMEAL PO Last administered on 09/02/18at 09:07 ; Start 08/30/18 at 16:30 Metformin HCl (Glucophage) 1,000 mg BIDWMEALS PO Last administered on at 09:07; Start 08/30/18 at 17:00 Lactobacillus Rhamnosus (Culturelle) 1 cap BID PO Last administered on at 09:07; Start 08/30/18 at 21:00 Trazodone HCl (Desyrel) 100 mg PRN QHS PRN PO INSOMNIA; Start 08/31/18 at 22: 15 Ciprofloxacin (Cipro) 500 mg BID PO Last administered on 09/01/18at 11:14; Start 09/01/18 at 09:00; Stop 09/01/18 at 13:31; Status DC Acetaminophen (Tylenol) 650 mg PRN Q6HRS PRN PO FEVER; Start 09/01/18 at 13:30 Ondansetron HCl (Zofran) 4 mg PRN Q6HRS PRN IV NAUSEA/VOMITING; Start at 13:30 Morphine Sulfate (Morphine Sulfate) 2 mg PRN Q2HR PRN IV MODERATE TO SEVERE PAIN; Start 09/01/18 at 13:30 Tramadol HCl (Ultram) 50 mg PRN Q6HRS PRN PO MILD TO MODERATE PAIN; Start at 13:30 Docusate Sodium (Colace) 100 mg PRN DAILY PRN PO CONSTIPATION; Start 09/01/18 at 13:30 Potassium Chloride (Klor-Con) 40 meq 1X ONCE PO Last administered on at 17:34; Start 09/01/18 at 14:00; Stop 09/01/18 at 14:01; Status DC Active Scripts Active Reported Lipitor (Atorvastatin Calcium) 80 Mg Tablet 1 Tab PO HS Glipizide 10 Mg Tablet 1 Tab PO BID Metformin Hcl 1,000 Mg Tablet 1,000 Mg PO BIDWMEALS Aspir-Low (Aspirin) 81 Mg Tablet.dr 1 Tab PO DAILY Vitals/I & O Vital Sign - Last 24 Hours 09/01/18 09/01/18 09/01/18 09/01/18 15:19 19:10 20:00 23:15 Temp 98.7 97.4 98.0 98.7 97.4 98.0 Pulse 81 90 88 Resp 20 20 18 B/P (MAP) 112/63 (79) 113/49 (70) 130/66 (87) Pulse Ox 96 96 96 O2 Delivery Room Air Room Air Room Air Room Air 09/02/18 09/02/18 09/02/18 09/02/18 03:37 07:20 08:00 11:39 Temp 98.2 98.1 99.4 98.2 98.1 99.4 Pulse 89 82 86 Resp 18 B/P (MAP) 115/61 (79) 126/70 (88) 138/70 (92) Pulse Ox 96 96 97 O2 Delivery Room Air Room Air Room Air Room Air Intake and Output 09/01/18 09/01/18 09/02/18 15:00 23:00 07:00 Intake Total 600 ml 150 ml 100 ml Balance 600 ml 150 ml 100 ml MÓNICA HALL MD Sep 02, 2018 12:25
[2018-09-02 15:49] VITALS: BP 138/68
[2018-09-02 19:57] VITALS: BP 125/74
[2018-09-02] MEDS: ATORVASTATIN CALCIUM 40 MG TABLET. PO SCH (21:43)
[2018-09-02] MEDS: ENOXAPARIN 40 MG/0.4 ML SYRINGE. SQ SCH (21:44)
[2018-09-02 23:36] VITALS: BP 128/67
[2018-09-03 03:40] VITALS: BP 126/70
[2018-09-03] MEDS: chlorproMAZINE 25 MG TABLET PO PRN (04:30)
[2018-09-03 07:00] VITALS: BP 145/64
[2018-09-03] MEDS: glipiZIDE 5 MG TABLET PO SCH (09:02)
[2018-09-03] MEDS: metFORMIN 500 MG TABLET PO SCH (09:02)
[2018-09-03] MEDS: LACTOBACILLUS RHAMNOSUS GG 1 CAPSULE. PO SCH (09:02)
[2018-09-03] MEDS: ASPIRIN ENTERIC COATED 81 MG TABLET.DR. PO SCH (09:02)
[2018-09-03 10:35] VITALS: BP 109/69
--- NOTE | 2018-09-03 14:14 | DISCH ---
DISCHARGE DISCHARGE INFORMATION: DISCHARGE DATE: Sep 03, 2018 FINAL DIAGNOSIS Problems Medical Problems: (1) Acute electrocardiogram changes Status: Acute CONDITION ON DISCHARGE: Stable CODE STATUS: Code Status: Full JAIL: SNF STAY <30 DAYS: Yes POST DISCHARGE ORDERS: ACTIVITY ORDERS: Resume previous activity WEIGHT BEARING STATUS: No restrictions DIET AFTER DISCHARGE: ADA FOLLOW-UP: PHYSICIAN FOLLOW-UP: PCP in 2 weeks TREATMENT/EQUIPMENT ORDERS: Physical Therapy For: Evalulation/Treatment Occupational Therapy For: Evaluation/Treatment DISCHARGE MEDICATIONS: Home Meds Reported Medications Atorvastatin Calcium (LIPITOR) 80 Mg Tablet, 1 TAB PO HS for cholesterol, #30 TAB 5 Refills 08/30/18 Glipizide (GLIPIZIDE) 10 Mg Tablet, 1 TAB PO BID for DM, #60 TAB 5 Refills 08/30/18 Metformin Hcl (METFORMIN HCL) 1,000 Mg Tablet, 1000 MG PO BIDWMEALS for Diabetic , TAB 08/29/18 Aspirin (ASPIR-LOW) 81 Mg Tablet.dr, 1 TAB PO DAILY for blood thinner, #30 TAB 3 Refills 08/29/18 MÓNICA HALL MD Sep 03, 2018 14:14
[2018-09-03 14:34] VITALS: BP 118/63
--- NOTE | 2018-09-03 15:14 | PDOC3 ---
Discharge Summary [facility] Date of Admission: Aug 29, 2018 Discharge Date: Sep 03, 2018 Admitting Diagnosis Weakness, and debility, recent illness, prior PNA, neuropathy, dementia cough, resolved Abnormal EKG: SR with LVH/LAFB, no cardiac symptoms. PSVT: x1 brief episode otherwise maintain SR with good BP control without antiHTN Presyncope with nontraumatic fall: could be related to poor hydration or arrhythmia. DM2 mild dementia Hx of CVA? pt denies Final Diagnosis CONSULTS neuro Brief Hospital Course Mr. Forte is a 68 old m, Comes for weakness. Head ct neg for stroke. pt feels fine now, walks ok, but agrees togo to rehab. neuro consulted, this is likely 2/2 his mild dementia and neuropathy from DM. dc to rehab. dc time 35min. General: Cooperative, No acute distress, Other (weak) Heart: Regular rate (S), Normal S1, Normal S2, Other (3/6 systolic murmur to LLS border) Lungs: Clear Abdomen: Normal bowel sounds, Soft, No tenderness Extremities: No cyanosis, No edema Skin: No breakdown, No significant lesion Disposition home CONDITION AT DISCHARGE: Improved Scheduled Aspirin (Aspir-Low), 1 TAB PO DAILY, (Reported) Atorvastatin Calcium (Lipitor), 1 TAB PO HS, (Reported) Glipizide (Glipizide), 1 TAB PO BID, (Reported) Metformin Hcl (Metformin Hcl), 1,000 MG PO BIDWMEALS, (Reported) MÓNICA HALL MD Sep 03, 2018 15:14
[2018-09-03 16:18] LABS: ANA INTERP Negative (.)
--- NOTE | 2018-09-03 17:37 | PDOC ---
PROGRESS NOTES Assessment Assessment IMPRESSION: Diabetic peripheral neuropathy. Generalized weakness. DM. 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 PD not likely at the present time. Cerebral atrophy on HCT. RECOMMENDATIONS/PLAN: Treat medical diseases. Mental and physical exercise. Control hyperglycemia. FU with PCP. Discussed with his nephew at bedside on 09/03/18. Past Medical History Cardiovascular: HTN, Hyperlipidemia Pulmonary: Pneumonia Endocrine: Diabetes Past Surgical History No pertinent history Family History No pertinent hx Social History , lives with son, no alcohol or tobacco Allergies Coded Allergies: Penicillins (Verified Allergy, Intermediate, 08/29/18) ROS Negative for fever, chills, weight loss, shortness of breath, chest pain, indigestion, hematochezia, melena, and dysuria. Full 14-point review of systems is negative. MEDICATIONS: Refer to MAR PHYSICAL EXAMINATION: General appearance in no acute distress. HEENT: Normocephalic and nontraumatic. Eyes, nose, ears, and throat are unremarkable. Hearing decrease. Neck is supple. No lymphadenopathy. No Crepitus. Cardiovascular: S1, S2, regular rate and rhythm. Pulmonary: Clear to auscultation bilaterally. Abdomen: Bowel sounds are positive. Abdomen is soft, nontender, and nondistended. Extremities: No rash, lesions, or edema. No restriction of range of motion NEUROLOGICAL EXAMINATION: Alert. Oriented to time, place and person. PERRL. EOMI. CN: no focal findings. Muscle tone: within normal. Muscle strength: 5 DTR: 2 Plantar reflex: Flexor response bilaterally Gait: not examined in bed. Sensory exam: no abnormal findings. No cerebellar signs elicited. F-T-N test fine. Objective Objective Vital Signs Date Time Temp Pulse Resp B/P (MAP) Pulse Ox O2 Delivery O2 Flow Rate FiO2 09/03/18 14:34 98.7 111 18 118/63 (81) 94 Room Air 98.7 Intake and Output 09/03/18 07:00 Intake Total 1110 ml Balance 1110 ml Intake Oral 1110 ml # Voids 1 Vitals Signs Vitals VS - Last 72 Hours, by Label Date Time Temp Pulse Resp B/P (MAP) Pulse Ox O2 Delivery O2 Flow Rate FiO2 09/03/18 14:34 98.7 111 18 118/63 (81) 94 Room Air 98.7 09/03/18 10:35 98.4 94 18 109/69 (82) 97 Room Air 98.4 09/03/18 08:00 Room Air 09/03/18 07:00 98.2 100 18 145/64 (91) 97 Room Air 98.2 09/03/18 03:40 98.5 91 20 126/70 (88) 98 Room Air 98.5 09/02/18 23:36 98.1 89 18 128/67 (87) 96 Room Air 98.1 09/02/18 20:00 Room Air 09/02/18 19:57 98.0 91 18 125/74 (91) 98 Room Air 98.0 09/02/18 15:49 98.0 69 16 138/68 (91) 96 Room Air 98.0 09/02/18 11:39 99.4 86 18 138/70 (92) 97 Room Air 99.4 09/02/18 08:00 Room Air 09/02/18 07:20 98.1 82 18 126/70 (88) 96 Room Air 98.1 Laboratory Laboratory Laboratory Tests Test 09/02/18 20:41 09/03/18 07:35 09/03/18 11:09 Glucose (Fingerstick) 99 mg/dL (70-99) 130 mg/dL (70-99) 150 mg/dL (70-99) Microbiology 08/29/18 Blood Culture - Final, Complete NO GROWTH AFTER 5 DAYS Comment Review of Relevant I have reviewed the following items jessica (where applicable) has been applied. GERMAINE ARDON MD Sep 03, 2018 17:37
[2018-09-04 07:38] LABS: ALBUM 3.4 g/dL (2.9-4.4); ALPHA 1 0.2 g/dL (0.0-0.4); ALPHA 2 0.7 g/dL (0.4-1.0); GAMMA 0.8 g/dL (0.4-1.8); PROTEIN TOTAL 6.1 g/dL (6.0-8.5); SPEP AG RATIO 1.3 (0.7-1.7)
[2018-09-06] MEDS ORDERED: Pantoprazole PO (13:10)
== END 2018-09-03 16:00 | DRG 73 ==
LOC: ER 16:40 → 6 SOUTH 19:28
PROVIDERS: ADMIT Internal Medicine; ATTEND Internal Medicine
DX: E11.42 Type 2 diabetes mellitus with diabetic polyneuropathy (principal); N17.0 Acute kidney failure with tubular necrosis; I47.1 Supraventricular tachycardia; E86.0 Dehydration; E78.5 Hyperlipidemia, unspecified; R06.6 Hiccough; M19.042 Primary osteoarthritis, left hand; M19.041 Primary osteoarthritis, right hand; F03.90 Unspecified dementia, unspecified severity, without behavioral disturbance, psychotic disturbance, mood disturbance, and anxiety; E11.65 Type 2 diabetes mellitus with hyperglycemia; W18.2XXA Fall in (into) shower or empty bathtub, initial encounter; I10 Essential (primary) hypertension; Z79.82 Long term (current) use of aspirin; Z82.49 Family history of ischemic heart disease and other diseases of the circulatory system; Z86.73 Personal history of transient ischemic attack (TIA), and cerebral infarction without residual deficits; Z87.01 Personal history of pneumonia (recurrent); Z79.84 Long term (current) use of oral hypoglycemic drugs; Z79.899 Other long term (current) drug therapy; Z88.0 Allergy status to penicillin; Z98.49 Cataract extraction status, unspecified eye; Z87.891 Personal history of nicotine dependence; Y93.E1 Activity, personal bathing and showering; Y92.091 Bathroom in other non-institutional residence as the place of occurrence of the external cause; Y99.8 Other external cause status
CPT/HCPCS: 36415; 70450; 71045; 80048; 80053; 81001; 82550; 82607; 82962; 83605; 83735; 83880; 84145; 84165; 84443; 84484; 85025; 85610; 85651; 85730; 86038; 86140; 87040; 87804; 93005; 93306; 96374; J0744; J1650; J3490; J7030; Q0161; 97110; 97116; 97530; 97535; 99285-25

== ENCOUNTER 2019-11-28 17:37 | Inpatient (IN) | payer MEDICARE ==
[~2019-11-28] VITALS: Ht 177.8 cm; Wt 90.9 kg
[~2019-11-28 17:37] MED LIST: ASPI81TA50 PO; GLIP10TA13 PO; LIPITOR80 MG PO; METF10007 PO; Pantoprazole PO
--- NOTE | 2019-11-28 18:11 | PHYS DOC ---
Past Medical History Past Medical History: Diabetes-Type II, Pneumonia (OSWALD NAVARRO APRN) Past Surgical History: Other Additional Past Surgical Histo: UNKNOWN (OSWALD NAVARRO APRN) Smoking Status: Former Smoker Alcohol Use: None Drug Use: None (OSWALD NAVARRO APRN) Attending Signature I have participated in the care of this patient and I have reviewed and agree with all pertinent clinical information above including history, exam, and recommendations. (SUSAN GARCÍA MD) Adult General Chief Complaint Chief Complaint: SYNCOPE HPI HPI Patient is a 69 year old male who presents with near syncopal episode that occurred around 2 hours ago. The patient states he had not really eaten anything today because he started having diarrhea this morning. The patient states he got dizzy while he was in the bathroom and then lowered himself to the floor and felt like he was almost in a pass out. He denies any additional symptoms. Denies fevers, body aches, shortness of breath. (OSWALD NAVARRO APRN) Review of Systems Review of Systems Constitutional: Denies fever or chills but reports dizziness. Eyes: Denies change in visual acuity, redness, or eye pain [] HENT: Denies nasal congestion or sore throat [] Respiratory: Denies cough or shortness of breath [] Cardiovascular: No additional information not addressed in HPI [] GI: Reports diarrhea. Denies abdominal pain, nausea, vomiting, bloody stools : Denies dysuria or hematuria [] Musculoskeletal: Denies back pain or joint pain [] Integument: Denies rash or skin lesions [] Neurologic: Denies headache, focal weakness or sensory changes [] Endocrine: Denies polyuria or polydipsia [] Complete systems were reviewed and found to be within normal limits, except as documented in this note. (OSWALD NAVARRO APRN) Current Medications Current Medications Current Medications Medications (Trade) Dose Ordered Sig/Jayant Start Time Stop Time Status Last Admin Dose Admin Sodium Chloride 1,000 ml @ 1,000 mls/hr 1X ONCE 11/28/19 18:15 11/28/19 19:14 DC 11/28/19 18:30 1,000 MLS/HR (SUSAN GARCÍA MD) Allergies Allergies Allergies Coded Allergies Type Severity Reaction Last Updated Verified Penicillins Allergy Intermediate 09/04/18 Yes (SUSAN GARCÍA MD) Physical Exam Physical Exam Constitutional: Well developed, well nourished, no acute distress, non-toxic appearance. [] HENT: Normocephalic, atraumatic, bilateral external ears normal, oropharynx moist, no oral exudates, nose normal. [] Eyes: PERRLA, EOMI, conjunctiva normal, no discharge. [] Neck: Normal range of motion, no tenderness, supple, no stridor. [] Cardiovascular:Heart rate regular rhythm, no murmur [] Lungs & Thorax: Bilateral breath sounds clear to auscultation [] Abdomen: Bowel sounds normal, soft, no tenderness, no masses, no pulsatile masses. [] Skin: Warm, dry, no erythema, no rash. [] Neurologic: Alert and oriented X 3, normal motor function, normal sensory function, no focal deficits noted. [] Psychologic: Affect normal, judgement normal, mood normal. [] (OSWALD NAVARRO APRN) Current Patient Data Vital Signs Vital Signs Date Time Temp Pulse Resp B/P (MAP) Pulse Ox O2 Delivery O2 Flow Rate FiO2 11/28/19 20:56 80 141/76 (97) 100 Room Air 11/28/19 19:26 13 11/28/19 17:37 97.9 97.9 (SUSAN GARCÍA MD) Lab Values Laboratory Tests Test 11/28/19 18:20 11/28/19 18:50 11/28/19 20:20 White Blood Count 5.3 x10^3/uL (4.0-11.0) Red Blood Count 4.30 x10^6/uL (4.30-5.70) Hemoglobin 12.7 g/dL (13.0-17.5) L Hematocrit 39.2 % (39.0-53.0) Mean Corpuscular Volume 91 fL (79-100) Mean Corpuscular Hemoglobin 30 pg (25-35) Mean Corpuscular Hemoglobin Concent 33 g/dL (31-37) Red Cell Distribution Width 15.2 % (11.5-14.5) H Platelet Count 157 x10^3/uL (140-400) Neutrophils (%) (Auto) 77 % (31-73) H Lymphocytes (%) (Auto) 13 % (24-48) L Monocytes (%) (Auto) 10 % (0-9) H Eosinophils (%) (Auto) 1 % (0-3) Basophils (%) (Auto) 0 % (0-3) Neutrophils # (Auto) 4.1 x10^3/uL (1.8-7.7) Lymphocytes # (Auto) 0.7 x10^3/uL (1.0-4.8) L Monocytes # (Auto) 0.5 x10^3/uL (0.0-1.1) Eosinophils # (Auto) 0.0 x10^3/uL (0.0-0.7) Basophils # (Auto) 0.0 x10^3/uL (0.0-0.2) Prothrombin Time 12.7 SEC (11.7-14.0) Prothrombin Time INR 1.0 (0.8-1.1) Activated Partial Thromboplast Time 24 SEC (24-38) Sodium Level 138 mmol/L (136-145) Potassium Level 4.4 mmol/L (3.5-5.1) Chloride Level 104 mmol/L (98-107) Carbon Dioxide Level 23 mmol/L (21-32) Anion Gap 11 (6-14) Blood Urea Nitrogen 21 mg/dL (8-26) Creatinine 2.1 mg/dL (0.7-1.3) H Estimated GFR (Cockcroft-Gault) 38.1 BUN/Creatinine Ratio 10 (6-20) Glucose Level 292 mg/dL (70-99) H Lactic Acid Level 3.0 mmol/L (0.4-2.0) H Calcium Level 9.5 mg/dL (8.5-10.1) Magnesium Level 2.0 mg/dL (1.8-2.4) Total Bilirubin 0.4 mg/dL (0.2-1.0) Aspartate Amino Transferase (AST) 14 U/L (15-37) L Alanine Aminotransferase (ALT) 27 U/L (16-63) Alkaline Phosphatase 171 U/L (46-116) H Troponin I Quantitative < 0.017 ng/mL (0.000-0.055) Total Protein 7.4 g/dL (6.4-8.2) Albumin 3.7 g/dL (3.4-5.0) Albumin/Globulin Ratio 1.0 (1.0-1.7) Influenza Type A Antigen Negative (NEGATIVE) Influenza Type B Antigen Negative (NEGATIVE) Urine Collection Type Unknown Urine Color Yellow Urine Clarity Clear Urine pH 5.0 (<5.0-8.0) Urine Specific [place] 1.025 (1.000-1.030) Urine Protein 100 mg/dL (NEG-TRACE) Urine Glucose (UA) >=1000 mg/dL (NEG) Urine Ketones (Stick) Negative mg/dL (NEG) Urine Blood Negative (NEG) Urine Nitrite Negative (NEG) Urine Bilirubin Small (NEG) Urine Urobilinogen Dipstick 0.2 mg/dL (0.2 mg/dL) Urine Leukocyte Esterase Negative (NEG) Urine RBC 0 /HPF (0-2) Urine WBC Occ /HPF (0-4) Urine Squamous Epithelial Cells Few /LPF Urine Amorphous Sediment Present /HPF Urine Bacteria 0 /HPF (0-FEW) Urine Hyaline Casts Moderate /HPF Urine Mucus Mod /LPF Laboratory Tests 11/28/19 18:20 Laboratory Tests 11/28/19 18:20 (SUSAN GARCÍA MD) Lab Values Laboratory Tests Test 11/28/19 18:20 11/28/19 18:50 11/28/19 20:20 White Blood Count 5.3 x10^3/uL (4.0-11.0) Red Blood Count 4.30 x10^6/uL (4.30-5.70) Hemoglobin 12.7 g/dL (13.0-17.5) L Hematocrit 39.2 % (39.0-53.0) Mean Corpuscular Volume 91 fL (79-100) Mean Corpuscular Hemoglobin 30 pg (25-35) Mean Corpuscular Hemoglobin Concent 33 g/dL (31-37) Red Cell Distribution Width 15.2 % (11.5-14.5) H Platelet Count 157 x10^3/uL (140-400) Neutrophils (%) (Auto) 77 % (31-73) H Lymphocytes (%) (Auto) 13 % (24-48) L Monocytes (%) (Auto) 10 % (0-9) H Eosinophils (%) (Auto) 1 % (0-3) Basophils (%) (Auto) 0 % (0-3) Neutrophils # (Auto) 4.1 x10^3/uL (1.8-7.7) Lymphocytes # (Auto) 0.7 x10^3/uL (1.0-4.8) L Monocytes # (Auto) 0.5 x10^3/uL (0.0-1.1) Eosinophils # (Auto) 0.0 x10^3/uL (0.0-0.7) Basophils # (Auto) 0.0 x10^3/uL (0.0-0.2) Prothrombin Time 12.7 SEC (11.7-14.0) Prothrombin Time INR 1.0 (0.8-1.1) Activated Partial Thromboplast Time 24 SEC (24-38) Sodium Level 138 mmol/L (136-145) Potassium Level 4.4 mmol/L (3.5-5.1) Chloride Level 104 mmol/L (98-107) Carbon Dioxide Level 23 mmol/L (21-32) Anion Gap 11 (6-14) Blood Urea Nitrogen 21 mg/dL (8-26) Creatinine 2.1 mg/dL (0.7-1.3) H Estimated GFR (Cockcroft-Gault) 38.1 BUN/Creatinine Ratio 10 (6-20) Glucose Level 292 mg/dL (70-99) H Lactic Acid Level 3.0 mmol/L (0.4-2.0) H Calcium Level 9.5 mg/dL (8.5-10.1) Magnesium Level 2.0 mg/dL (1.8-2.4) Total Bilirubin 0.4 mg/dL (0.2-1.0) Aspartate Amino Transferase (AST) 14 U/L (15-37) L Alanine Aminotransferase (ALT) 27 U/L (16-63) Alkaline Phosphatase 171 U/L (46-116) H Troponin I Quantitative < 0.017 ng/mL (0.000-0.055) Total Protein 7.4 g/dL (6.4-8.2) Albumin 3.7 g/dL (3.4-5.0) Albumin/Globulin Ratio 1.0 (1.0-1.7) Influenza Type A Antigen Negative (NEGATIVE) Influenza Type B Antigen Negative (NEGATIVE) Urine Collection Type Unknown Urine Color Yellow Urine Clarity Clear Urine pH 5.0 (<5.0-8.0) Urine Specific [place] 1.025 (1.000-1.030) Urine Protein 100 mg/dL (NEG-TRACE) Urine Glucose (UA) >=1000 mg/dL (NEG) Urine Ketones (Stick) Negative mg/dL (NEG) Urine Blood Negative (NEG) Urine Nitrite Negative (NEG) Urine Bilirubin Small (NEG) Urine Urobilinogen Dipstick 0.2 mg/dL (0.2 mg/dL) Urine Leukocyte Esterase Negative (NEG) Urine RBC 0 /HPF (0-2) Urine WBC Occ /HPF (0-4) Urine Squamous Epithelial Cells Few /LPF Urine Amorphous Sediment Present /HPF Urine Bacteria 0 /HPF (0-FEW) Urine Hyaline Casts Moderate /HPF Urine Mucus Mod /LPF Laboratory Tests 11/28/19 18:20 Laboratory Tests 11/28/19 18:20 (OSWALD NAVARRO APRN) EKG EKG [] (OSWALD NAVARRO APRN) Radiology/Procedures Radiology/Procedures [][facility] [address] [place] [address] IMAGING REPORT Signed PATIENT: DENISSE BOYLE LACCOUNT: [id number] : 1950 LOCATION: ER AGE: 69 SEX: M EXAM STATUS: REG ER ORD. PHYSICIAN: OSWALD NAVARRO APRN REASON: dizziness, near syncope PROCEDURE: PORTABLE CHEST 1V EXAM: AP View of the chest DATE: 11/28/2019 6:25 PM INDICATION: dizziness, near syncope COMPARISON: No Prior FINDINGS: The heart is not enlarged. Mediastinal and hilar contours are normal. No focal parenchymal airspace opacity. Emphysematous changes are seen. No pleural effusion or pneumothorax. IMPRESSION: 1. No radiographic evidence for acute cardiopulmonary process. Electronically signed by: Patrick Lewis MD (11/28/2019 7:23 PM) [id number] DICTATED and SIGNED BY: PATRICK LEWIS MD DATE: 11/28/19 192 (OSWALD NAVARRO APRN) Course & Med Decision Making Course & Med Decision Making Pertinent Labs and Imaging studies reviewed. (See chart for details) Will get EKG, labs, chest x-ray, urine. Labs shows lactic acid of 3.0. Creatinine is 2.1 and has been 1.5 in past. Will admit for JAMEEL, and Lactic Acidosis. Will admit to hospitalist. Due to lactic acid will give 2500 mL of fluids (30 mL/kg) and will give Rocephin although I have no source of infection. Discussed with Dr. Currie who agrees to admission. (OSWALD NAVARRO APRN) Dragon Disclaimer Dragon Disclaimer This electronic medical record was generated, in whole or in part, using a voice recognition dictation system. (OSWALD NAVARRO APRN) Departure Departure Impression: Primary Impression: JAMEEL (acute kidney injury) Additional Impressions: Lactic acidosis Syncope Disposition: 09 ADMITTED INPATIENT Admitting Physician: OSMAN (OSWALD NAVARRO APRN) Condition: STABLE Referrals: UNKNOWN PCP NAME (PCP) Problem Qualifiers Additional Impressions: Syncope Syncope type: unspecified Qualified Codes: R55 - Syncope and collapse OSWALD NAVARRO APRN Nov 28, 2019 18:11 SUSAN GARCÍA MD Nov 29, 2019 03:07
[2019-11-28] MEDS ORDERED: IV NORMAL SALINE 1000ML BAG 1,000 ML IV ONE ×2 (18:15→21:30)
[2019-11-28 18:28] LABS: BASO % 0 % (0-3); EOS % 1 % (0-3); HEMATOCRIT 39.2 % (39.0-53.0); HEMOGLOBIN 12.7 g/dL (13.0-17.5); LYMPH # 0.7 x10^3/uL (1.0-4.8); LYMPH % 13 % (24-48); MEAN CORPUSCULAR HEMOGLOBIN 30 pg (25-35); MEAN CORPUSCULAR HGB CONC 33 g/dL (31-37); MEAN CORPUSCULAR VOLUME 91 fL (79-100); MONO # 0.5 x10^3/uL (0.0-1.1); MONO % 10 % (0-9); NEUT # 4.1 x10^3/uL (1.8-7.7); NEUT % 77 % (31-73); PLATELET COUNT 157 x10^3/uL (140-400); RED CELL DISTRIBUTION WIDTH 15.2 % (11.5-14.5); WHITE BLOOD COUNT 5.3 x10^3/uL (4.0-11.0)
[2019-11-28 18:37] LABS: CALCIUM 9.5 mg/dL (8.5-10.1); CREATININE 2.1 mg/dL (0.7-1.3); GFR 38.1; POTASSIUM 4.4 mmol/L (3.5-5.1)
[2019-11-28 18:38] LABS: PROTHROMBIN TIME PATIENT 12.7 SEC (11.7-14.0)
[2019-11-28 18:43] LABS: ALBUMIN 3.7 g/dL (3.4-5.0); TOTAL BILIRUBIN 0.4 mg/dL (0.2-1.0); TOTAL PROTEIN 7.4 g/dL (6.4-8.2)
--- NOTE | 2019-11-28 19:26 | RAD ---
EXAM: AP View of the chest DATE: 11/28/2019 6:25 PM INDICATION: dizziness, near syncope COMPARISON: No Prior FINDINGS: The heart is not enlarged. Mediastinal and hilar contours are normal. No focal parenchymal airspace opacity. Emphysematous changes are seen. No pleural effusion or pneumothorax. IMPRESSION: 1. No radiographic evidence for acute cardiopulmonary process. Electronically signed by: Patrick Campos MD (11/28/2019 7:23 PM) [id number]
[2019-11-28 19:35] LABS: INFLUENZA A PATIENT NEGATIVE (NEGATIVE); INFLUENZA B PATIENT NEGATIVE (NEGATIVE)
--- NOTE | 2019-11-28 19:58 | EKG ---
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
[2019-11-28 20:40] LABS: BILIRUBIN,URINE SMALL (NEG); CLARITY,URINE CLEAR; COLOR,URINE YELLOW; NITRITE,URINE NEGATIVE (NEG); PROTEIN,URINE 100 mg/dL (NEG-TRACE); UROBILINOGEN,URINE 0.2 mg/dL (0.2 mg/dL)
[2019-11-28 20:44] LABS: AMORPHOUS SEDIMENT,UR PRESENT /HPF; BACTERIA,URINE 0 /HPF (0-FEW); RBC,URINE 0 /HPF (0-2); SQUAMOUS EPITHELIAL CELL,UR FEW /LPF; WBC,URINE OCC /HPF (0-4)
[2019-11-28 20:45] LABS: HYALINE CASTS, URINE MODERATE /HPF
[2019-11-28] MEDS ORDERED: IV NORMAL SALINE 500ML BAG 500 ML IV ONE (21:30)
[2019-11-28] MEDS ORDERED: ONDANSETRON PF 4 MG/2 ML VIAL. IV PRN ×2 (21:30→22:45)
[2019-11-28] MEDS ORDERED: cefTRIAXone IV Push 1 GM VIAL. IVP ONE (21:30)
--- NOTE | 2019-11-28 22:44 | PDOC1 ---
History and Physical Date of Admission Date of Admission 11/28/2019 Identification/Chief Complaint Chief Complaint I fainted Problems: (1) Syncope (2) Lactic acidosis (3) Weakness (4) JAMEEL (acute kidney injury) History of Present Illness History of Present Illness Patient is a 69-year-old male who was in his usual state of health until this morning when he went to the bathroom. The patient felt lightheaded while trying to have a bowel movement which of note has been diarrhea. The patient had been constipated earlier in the week and he took some laxatives which prompted his current bout of diarrhea. Patient lowered himself to the ground and lost consciousness proximately 30 seconds he says with no postictal period. The patient denies slurred speech no headache blurred vision no dysphagia odynophagia patient has no abdominal discomfort, the patient denies hematemesis or hematochezia he denies sensation of impending doom no chest pain or palpitations reported prior to the event. No visual or auditory scotoma. Is being admitted at the request of the ER for evaluation and observation Past Medical History Cardiovascular: HTN, Hyperlipidemia Pulmonary: Pneumonia CENTRAL NERVOUS SYSTEM: CVA GI: No pertinent hx Heme/Onc: No pertinent hx Hepatobiliary: No pertinent hx Psych: No pertinent hx Rheumatologic: No pertinent hx Infectious disease: No pertinent hx Renal/: No pertinent hx Endocrine: Diabetes Past Surgical History Past Surgical History: No pertinent history Family History Family History: Hypertension Social History ALCOHOL: none Drugs: None Current Problem List Problem List Problems Medical Problems: (1) JAMEEL (acute kidney injury) Status: Acute (2) Lactic acidosis Status: Acute (3) Syncope Status: Acute Current Medications Current Medications Current Medications Medications (Trade) Dose Ordered Sig/Jayant Start Time Stop Time Status Last Admin Dose Admin Ceftriaxone Sodium (Rocephin) 1 gm 1X ONCE 11/28/19 21:30 11/28/19 21:31 DC 11/28/19 22:19 1 GM Ondansetron HCl (Zofran) 4 mg PRN Q8HRS PRN 11/28/19 21:30 11/29/19 21:29 Sodium Chloride 500 ml @ 500 mls/hr 1X ONCE 11/28/19 21:30 11/28/19 22:29 DC 11/28/19 22:20 500 MLS/HR Allergies Allergies Allergies Coded Allergies Type Severity Reaction Last Updated Verified Penicillins Allergy Intermediate 09/04/18 Yes ROS Review of System CONSTITUTIONAL: No fever or chills EYES: No recent changes SKIN: No rash or itching CARDIOVASCULAR: No chest pain, syncope, palpitations, or edema RESPIRATORY: No SOB or cough GASTROINTESTINAL: No nausea, vomiting or abdominal pain NEUROLOGICAL: No headaches or weakness ENDOCRINE: No cold or heat intolerance GENITOURINARY: No urgency or frequency of urination MUSCULOSKELETAL: No back pain or joint pain LYMPHATICS: No enlarged lymph nodes PSYCHIATRIC: No anxiety or depression Physical Exam Physical Exam GEN.: No apparent distress. Alert and oriented. HEENT: Head is normocephalic, atraumatic NECK: Supple. LUNGS: Clear to auscultation. HEART: RRR, S1, S2 present. Peripheral pulses intact ABDOMEN: Soft, nontender. Positive bowel sounds. EXTREMITIES: Without any cyanosis. NEUROLOGIC: Normal speech, normal tone PSYCHIATRIC: Normal affect, normal mood. SKIN: No ulcerations Vitals Vitals Vital Signs Date Time Temp Pulse Resp B/P (MAP) Pulse Ox O2 Delivery O2 Flow Rate FiO2 11/28/19 19:56 88 140/89 (106) 100 Room Air 11/28/19 19:26 13 11/28/19 17:37 97.9 97.9 Labs Labs Laboratory Tests Test 11/28/19 18:20 11/28/19 18:50 11/28/19 20:20 White Blood Count 5.3 x10^3/uL (4.0-11.0) Red Blood Count 4.30 x10^6/uL (4.30-5.70) Hemoglobin 12.7 g/dL (13.0-17.5) Hematocrit 39.2 % (39.0-53.0) Mean Corpuscular Volume 91 fL (79-100) Mean Corpuscular Hemoglobin 30 pg (25-35) Mean Corpuscular Hemoglobin Concent 33 g/dL (31-37) Red Cell Distribution Width 15.2 % (11.5-14.5) Platelet Count 157 x10^3/uL (140-400) Neutrophils (%) (Auto) 77 % (31-73) Lymphocytes (%) (Auto) 13 % (24-48) Monocytes (%) (Auto) 10 % (0-9) Eosinophils (%) (Auto) 1 % (0-3) Basophils (%) (Auto) 0 % (0-3) Neutrophils # (Auto) 4.1 x10^3/uL (1.8-7.7) Lymphocytes # (Auto) 0.7 x10^3/uL (1.0-4.8) Monocytes # (Auto) 0.5 x10^3/uL (0.0-1.1) Eosinophils # (Auto) 0.0 x10^3/uL (0.0-0.7) Basophils # (Auto) 0.0 x10^3/uL (0.0-0.2) Prothrombin Time 12.7 SEC (11.7-14.0) Prothromb Time International Ratio 1.0 (0.8-1.1) Activated Partial Thromboplast Time 24 SEC (24-38) Sodium Level 138 mmol/L (136-145) Potassium Level 4.4 mmol/L (3.5-5.1) Chloride Level 104 mmol/L (98-107) Carbon Dioxide Level 23 mmol/L (21-32) Anion Gap 11 (6-14) Blood Urea Nitrogen 21 mg/dL (8-26) Creatinine 2.1 mg/dL (0.7-1.3) Estimated GFR (Cockcroft-Gault) 38.1 BUN/Creatinine Ratio 10 (6-20) Glucose Level 292 mg/dL (70-99) Lactic Acid Level 3.0 mmol/L (0.4-2.0) Calcium Level 9.5 mg/dL (8.5-10.1) Magnesium Level 2.0 mg/dL (1.8-2.4) Total Bilirubin 0.4 mg/dL (0.2-1.0) Aspartate Amino Transf (AST/SGOT) 14 U/L (15-37) Alanine Aminotransferase (ALT/SGPT) 27 U/L (16-63) Alkaline Phosphatase 171 U/L (46-116) Troponin I Quantitative < 0.017 ng/mL (0.000-0.055) Total Protein 7.4 g/dL (6.4-8.2) Albumin 3.7 g/dL (3.4-5.0) Albumin/Globulin Ratio 1.0 (1.0-1.7) Influenza Type A Antigen Negative (NEGATIVE) Influenza Type B Antigen Negative (NEGATIVE) Urine Collection Type Unknown Urine Color Yellow Urine Clarity Clear Urine pH 5.0 (<5.0-8.0) Urine Specific [place] 1.025 (1.000-1.030) Urine Protein 100 mg/dL (NEG-TRACE) Urine Glucose (UA) >=1000 mg/dL (NEG) Urine Ketones (Stick) Negative mg/dL (NEG) Urine Blood Negative (NEG) Urine Nitrite Negative (NEG) Urine Bilirubin Small (NEG) Urine Urobilinogen Dipstick 0.2 mg/dL (0.2 mg/dL) Urine Leukocyte Esterase Negative (NEG) Urine RBC 0 /HPF (0-2) Urine WBC Occ /HPF (0-4) Urine Squamous Epithelial Cells Few /LPF Urine Amorphous Sediment Present /HPF Urine Bacteria 0 /HPF (0-FEW) Urine Hyaline Casts Moderate /HPF Urine Mucus Mod /LPF Laboratory Tests Test 11/28/19 18:20 11/28/19 18:50 11/28/19 20:20 White Blood Count 5.3 x10^3/uL (4.0-11.0) Red Blood Count 4.30 x10^6/uL (4.30-5.70) Hemoglobin 12.7 g/dL (13.0-17.5) Hematocrit 39.2 % (39.0-53.0) Mean Corpuscular Volume 91 fL (79-100) Mean Corpuscular Hemoglobin 30 pg (25-35) Mean Corpuscular Hemoglobin Concent 33 g/dL (31-37) Red Cell Distribution Width 15.2 % (11.5-14.5) Platelet Count 157 x10^3/uL (140-400) Neutrophils (%) (Auto) 77 % (31-73) Lymphocytes (%) (Auto) 13 % (24-48) Monocytes (%) (Auto) 10 % (0-9) Eosinophils (%) (Auto) 1 % (0-3) Basophils (%) (Auto) 0 % (0-3) Neutrophils # (Auto) 4.1 x10^3/uL (1.8-7.7) Lymphocytes # (Auto) 0.7 x10^3/uL (1.0-4.8) Monocytes # (Auto) 0.5 x10^3/uL (0.0-1.1) Eosinophils # (Auto) 0.0 x10^3/uL (0.0-0.7) Basophils # (Auto) 0.0 x10^3/uL (0.0-0.2) Prothrombin Time 12.7 SEC (11.7-14.0) Prothromb Time International Ratio 1.0 (0.8-1.1) Activated Partial Thromboplast Time 24 SEC (24-38) Sodium Level 138 mmol/L (136-145) Potassium Level 4.4 mmol/L (3.5-5.1) Chloride Level 104 mmol/L (98-107) Carbon Dioxide Level 23 mmol/L (21-32) Anion Gap 11 (6-14) Blood Urea Nitrogen 21 mg/dL (8-26) Creatinine 2.1 mg/dL (0.7-1.3) Estimated GFR (Cockcroft-Gault) 38.1 BUN/Creatinine Ratio 10 (6-20) Glucose Level 292 mg/dL (70-99) Lactic Acid Level 3.0 mmol/L (0.4-2.0) Calcium Level 9.5 mg/dL (8.5-10.1) Magnesium Level 2.0 mg/dL (1.8-2.4) Total Bilirubin 0.4 mg/dL (0.2-1.0) Aspartate Amino Transf (AST/SGOT) 14 U/L (15-37) Alanine Aminotransferase (ALT/SGPT) 27 U/L (16-63) Alkaline Phosphatase 171 U/L (46-116) Troponin I Quantitative < 0.017 ng/mL (0.000-0.055) Total Protein 7.4 g/dL (6.4-8.2) Albumin 3.7 g/dL (3.4-5.0) Albumin/Globulin Ratio 1.0 (1.0-1.7) Influenza Type A Antigen Negative (NEGATIVE) Influenza Type B Antigen Negative (NEGATIVE) Urine Collection Type Unknown Urine Color Yellow Urine Clarity Clear Urine pH 5.0 (<5.0-8.0) Urine Specific [place] 1.025 (1.000-1.030) Urine Protein 100 mg/dL (NEG-TRACE) Urine Glucose (UA) >=1000 mg/dL (NEG) Urine Ketones (Stick) Negative mg/dL (NEG) Urine Blood Negative (NEG) Urine Nitrite Negative (NEG) Urine Bilirubin Small (NEG) Urine Urobilinogen Dipstick 0.2 mg/dL (0.2 mg/dL) Urine Leukocyte Esterase Negative (NEG) Urine RBC 0 /HPF (0-2) Urine WBC Occ /HPF (0-4) Urine Squamous Epithelial Cells Few /LPF Urine Amorphous Sediment Present /HPF Urine Bacteria 0 /HPF (0-FEW) Urine Hyaline Casts Moderate /HPF Urine Mucus Mod /LPF VTE Prophylaxis Ordered VTE Prophylaxis Devices: Yes VTE Pharmacological Prophylaxi: Yes Assessment/Plan Assessment/Plan Acute renal failure secondary to vasomotor etiology most likely Syncopal episode most likely secondary to vasovagal event Moderate to severe dehydration History of dyslipidemia on statin therapy History of diabetes mellitus type 2 cal-rmirrtx-[id number] Overweight with a BMI of 28 Plan: Admit the patient to telemetry floor We will trend troponins We will order orthostatics on the patient. Resume home medications Further recommendations based on the clinical course DVT prophylaxis with Lovenox adjusted for renal dysfunction Problem Qualifiers (1) Syncope: Syncope type: unspecified Qualified Codes: R55 - Syncope and collapse GLADYS ESPINOZA MD Nov 28, 2019 22:43
[2019-11-28] MEDS ORDERED: LORazepam 0.5 MG TABLET PO PRN (22:45)
[2019-11-28] MEDS ORDERED: DOCUSATE SODIUM 100 MG CAPSULE. PO PRN (22:45)
[2019-11-28] MEDS ORDERED: ZOLPIDEM 5 MG TABLET. PO PRN (22:45)
[2019-11-28] MEDS ORDERED: ALBUTEROL SULFATE 2.5 MG/3 ML NEBU. NEB PRN (22:45)
[2019-11-28] MEDS: IV NORMAL SALINE 1000ML BAG 1,000 ML IV SCH (23:52)
[2019-11-28] MEDS: ENOXAPARIN 40 MG/0.4 ML SYRINGE. SQ SCH (23:53)
[2019-11-28 23:54] VITALS: BP 140/65
[2019-11-29 03:35] VITALS: BP 140/68
[2019-11-29 07:19] VITALS: BP 158/61
[2019-11-29] MEDS ORDERED: diabetic med PO (07:47)
--- NOTE | 2019-11-29 08:28 | RAD ---
EXAM: Carotid Doppler sonogram. HISTORY: Syncope. TECHNIQUE: Lacey scale and color Doppler sonographic evaluation of the neck with spectral waveform analysis was performed and static images are submitted for review. FINDINGS: There is mild echogenic plaque within the carotid bifurcations. The peak systolic velocity within the right common carotid artery is 84 cm/sec. The peak systolic velocity within the right internal carotid artery is 152 cm/sec and the end diastolic velocity within the right internal carotid artery is 33 cm/sec. The right ICA/CCA ratio is 1.8. The peak systolic velocity within the left common carotid artery is 104 cm/sec. The peak systolic velocity within the left internal carotid artery is 94 cm/sec and the end diastolic velocity within the left internal carotid artery is 29 cm/sec. The left ICA/CCA ratio is 1.1. There is normal antegrade flow within both vertebral arteries. IMPRESSION: 1. Elevated peak systolic velocity within the right ICA, suggesting 50-69 percent stenosis. 2. No Doppler evidence of hemodynamically significant stenosis involving the left ICA. PQRS Compliance Statement - Stenosis calculations for CT, MR and conventional angiography are based upon measurement of the distal ICA diameter in accordance with the NASCET methodology. Stenosis calculations for carotid ultrasound studies are derived from validated velocity criteria which are known to correlate with the NASCET methodology. Electronically signed by: Pilar Perez MD (11/29/2019 8:25 AM) [id number]
[2019-11-29] MEDS ORDERED: FLU VAX QS 2019-20 (36MOS+)/PF 0.5 ML SYRINGE. VAX IM ONE (09:00)
[2019-11-29] MEDS: PANTOPRAZOLE 40 MG TABLET.DR. PO SCH (09:13)
[2019-11-29 10:05] LABS: BASO % 0 % (0-3); EOS % 1 % (0-3); HEMATOCRIT 32.1 % (39.0-53.0); HEMOGLOBIN 10.5 g/dL (13.0-17.5); LYMPH # 1.3 x10^3/uL (1.0-4.8); LYMPH % 27 % (24-48); MEAN CORPUSCULAR HEMOGLOBIN 30 pg (25-35); MEAN CORPUSCULAR HGB CONC 33 g/dL (31-37); MEAN CORPUSCULAR VOLUME 91 fL (79-100); MONO # 0.4 x10^3/uL (0.0-1.1); MONO % 8 % (0-9); NEUT % 65 % (31-73); PLATELET COUNT 142 x10^3/uL (140-400); RED BLOOD COUNT 3.54 x10^6/uL (4.30-5.70); RED CELL DISTRIBUTION WIDTH 15.1 % (11.5-14.5); WHITE BLOOD COUNT 4.7 x10^3/uL (4.0-11.0)
[2019-11-29 10:16] LABS: CALCIUM 8.3 mg/dL (8.5-10.1); CREATININE 1.3 mg/dL (0.7-1.3); GFR 66.2; POTASSIUM 4.4 mmol/L (3.5-5.1)
--- NOTE | 2019-11-29 11:19 | PDOC ---
PROGRESS NOTES Chief Complaint Chief Complaint Acute renal failure secondary to vasomotor etiology most likely Syncopal episode most likely secondary to vasovagal event Moderate to severe dehydration History of dyslipidemia on statin therapy History of diabetes mellitus type 2 [id number] Overweight with a BMI of 28 Plan: Continue telemetry We will trend troponin x1 monitor for orthostatic hypotension Resume home medications Further recommendations based on the clinical course DVT prophylaxis with Lovenox adjusted for renal dysfunction History of Present Illness History of Present Illness Patient with no evidence of acute infectious process. Lactic acid elevation seems quite odd might be d lactic acidosis Vitals Vitals Vital Signs Date Time Temp Pulse Resp B/P (MAP) Pulse Ox O2 Delivery O2 Flow Rate FiO2 11/29/19 07:19 98.2 70 18 158/61 (93) 98 Room Air 98.2 Physical Exam Physical Exam Physical Exam GEN.: No apparent distress. Alert and oriented. HEENT: Head is normocephalic, atraumatic NECK: Supple. LUNGS: Clear to auscultation. HEART: RRR, S1, S2 present. Peripheral pulses intact ABDOMEN: Soft, nontender. Positive bowel sounds. EXTREMITIES: Without any cyanosis. NEUROLOGIC: Normal speech, normal tone PSYCHIATRIC: Normal affect, normal mood. SKIN: No ulcerations General: Alert, Oriented X3, Cooperative Heart: Regular rate, Normal S1, Normal S2 Lungs: Clear Abdomen: Normal bowel sounds, Soft Extremities: No clubbing, No cyanosis Skin: No rashes Labs LABS Laboratory Tests Test 11/28/19 18:20 11/28/19 18:50 11/28/19 20:20 11/28/19 22:45 White Blood Count 5.3 x10^3/uL (4.0-11.0) Red Blood Count 4.30 x10^6/uL (4.30-5.70) Hemoglobin 12.7 g/dL (13.0-17.5) Hematocrit 39.2 % (39.0-53.0) Mean Corpuscular Volume 91 fL (79-100) Mean Corpuscular Hemoglobin 30 pg (25-35) Mean Corpuscular Hemoglobin Concent 33 g/dL (31-37) Red Cell Distribution Width 15.2 % (11.5-14.5) Platelet Count 157 x10^3/uL (140-400) Neutrophils (%) (Auto) 77 % (31-73) Lymphocytes (%) (Auto) 13 % (24-48) Monocytes (%) (Auto) 10 % (0-9) Eosinophils (%) (Auto) 1 % (0-3) Basophils (%) (Auto) 0 % (0-3) Neutrophils # (Auto) 4.1 x10^3/uL (1.8-7.7) Lymphocytes # (Auto) 0.7 x10^3/uL (1.0-4.8) Monocytes # (Auto) 0.5 x10^3/uL (0.0-1.1) Eosinophils # (Auto) 0.0 x10^3/uL (0.0-0.7) Basophils # (Auto) 0.0 x10^3/uL (0.0-0.2) Prothrombin Time 12.7 SEC (11.7-14.0) Prothromb Time International Ratio 1.0 (0.8-1.1) Activated Partial Thromboplast Time 24 SEC (24-38) Sodium Level 138 mmol/L (136-145) Potassium Level 4.4 mmol/L (3.5-5.1) Chloride Level 104 mmol/L (98-107) Carbon Dioxide Level 23 mmol/L (21-32) Anion Gap 11 (6-14) Blood Urea Nitrogen 21 mg/dL (8-26) Creatinine 2.1 mg/dL (0.7-1.3) Estimated GFR (Cockcroft-Gault) 38.1 BUN/Creatinine Ratio 10 (6-20) Glucose Level 292 mg/dL (70-99) Lactic Acid Level 3.0 mmol/L (0.4-2.0) 3.8 mmol/L (0.4-2.0) Calcium Level 9.5 mg/dL (8.5-10.1) Magnesium Level 2.0 mg/dL (1.8-2.4) Total Bilirubin 0.4 mg/dL (0.2-1.0) Aspartate Amino Transf (AST/SGOT) 14 U/L (15-37) Alanine Aminotransferase (ALT/SGPT) 27 U/L (16-63) Alkaline Phosphatase 171 U/L (46-116) Troponin I Quantitative < 0.017 ng/mL (0.000-0.055) Total Protein 7.4 g/dL (6.4-8.2) Albumin 3.7 g/dL (3.4-5.0) Albumin/Globulin Ratio 1.0 (1.0-1.7) Influenza Type A Antigen Negative (NEGATIVE) Influenza Type B Antigen Negative (NEGATIVE) Urine Collection Type Unknown Urine Color Yellow Urine Clarity Clear Urine pH 5.0 (<5.0-8.0) Urine Specific [place] 1.025 (1.000-1.030) Urine Protein 100 mg/dL (NEG-TRACE) Urine Glucose (UA) >=1000 mg/dL (NEG) Urine Ketones (Stick) Negative mg/dL (NEG) Urine Blood Negative (NEG) Urine Nitrite Negative (NEG) Urine Bilirubin Small (NEG) Urine Urobilinogen Dipstick 0.2 mg/dL (0.2 mg/dL) Urine Leukocyte Esterase Negative (NEG) Urine RBC 0 /HPF (0-2) Urine WBC Occ /HPF (0-4) Urine Squamous Epithelial Cells Few /LPF Urine Amorphous Sediment Present /HPF Urine Bacteria 0 /HPF (0-FEW) Urine Hyaline Casts Moderate /HPF Urine Mucus Mod /LPF Test 11/29/19 07:33 11/29/19 09:27 11/29/19 10:51 Glucose (Fingerstick) 219 mg/dL (70-99) 227 mg/dL (70-99) White Blood Count 4.7 x10^3/uL (4.0-11.0) Red Blood Count 3.54 x10^6/uL (4.30-5.70) Hemoglobin 10.5 g/dL (13.0-17.5) Hematocrit 32.1 % (39.0-53.0) Mean Corpuscular Volume 91 fL (79-100) Mean Corpuscular Hemoglobin 30 pg (25-35) Mean Corpuscular Hemoglobin Concent 33 g/dL (31-37) Red Cell Distribution Width 15.1 % (11.5-14.5) Platelet Count 142 x10^3/uL (140-400) Neutrophils (%) (Auto) 65 % (31-73) Lymphocytes (%) (Auto) 27 % (24-48) Monocytes (%) (Auto) 8 % (0-9) Eosinophils (%) (Auto) 1 % (0-3) Basophils (%) (Auto) 0 % (0-3) Neutrophils # (Auto) 3.0 x10^3/uL (1.8-7.7) Lymphocytes # (Auto) 1.3 x10^3/uL (1.0-4.8) Monocytes # (Auto) 0.4 x10^3/uL (0.0-1.1) Eosinophils # (Auto) 0.0 x10^3/uL (0.0-0.7) Basophils # (Auto) 0.0 x10^3/uL (0.0-0.2) Sodium Level 144 mmol/L (136-145) Potassium Level 4.4 mmol/L (3.5-5.1) Chloride Level 110 mmol/L (98-107) Carbon Dioxide Level 24 mmol/L (21-32) Anion Gap 10 (6-14) Blood Urea Nitrogen 16 mg/dL (8-26) Creatinine 1.3 mg/dL (0.7-1.3) Estimated GFR (Cockcroft-Gault) 66.2 Glucose Level 253 mg/dL (70-99) Lactic Acid Level 2.1 mmol/L (0.4-2.0) Calcium Level 8.3 mg/dL (8.5-10.1) Review of Systems Review of Systems Review of systems pertinent as per HPI otherwise 14 point review of system is negative Assessment and Plan Assessmemt and Plan Problems Medical Problems: (1) JAMEEL (acute kidney injury) Status: Acute (2) Lactic acidosis Status: Acute (3) Syncope Status: Acute Comment Review of Relevant I have reviewed the following items jessica (where applicable) has been applied. Labs Laboratory Tests Test 11/28/19 18:20 11/28/19 18:50 11/28/19 20:20 11/28/19 22:45 White Blood Count 5.3 x10^3/uL (4.0-11.0) Red Blood Count 4.30 x10^6/uL (4.30-5.70) Hemoglobin 12.7 g/dL (13.0-17.5) Hematocrit 39.2 % (39.0-53.0) Mean Corpuscular Volume 91 fL (79-100) Mean Corpuscular Hemoglobin 30 pg (25-35) Mean Corpuscular Hemoglobin Concent 33 g/dL (31-37) Red Cell Distribution Width 15.2 % (11.5-14.5) Platelet Count 157 x10^3/uL (140-400) Neutrophils (%) (Auto) 77 % (31-73) Lymphocytes (%) (Auto) 13 % (24-48) Monocytes (%) (Auto) 10 % (0-9) Eosinophils (%) (Auto) 1 % (0-3) Basophils (%) (Auto) 0 % (0-3) Neutrophils # (Auto) 4.1 x10^3/uL (1.8-7.7) Lymphocytes # (Auto) 0.7 x10^3/uL (1.0-4.8) Monocytes # (Auto) 0.5 x10^3/uL (0.0-1.1) Eosinophils # (Auto) 0.0 x10^3/uL (0.0-0.7) Basophils # (Auto) 0.0 x10^3/uL (0.0-0.2) Prothrombin Time 12.7 SEC (11.7-14.0) Prothromb Time International Ratio 1.0 (0.8-1.1) Activated Partial Thromboplast Time 24 SEC (24-38) Sodium Level 138 mmol/L (136-145) Potassium Level 4.4 mmol/L (3.5-5.1) Chloride Level 104 mmol/L (98-107) Carbon Dioxide Level 23 mmol/L (21-32) Anion Gap 11 (6-14) Blood Urea Nitrogen 21 mg/dL (8-26) Creatinine 2.1 mg/dL (0.7-1.3) Estimated GFR (Cockcroft-Gault) 38.1 BUN/Creatinine Ratio 10 (6-20) Glucose Level 292 mg/dL (70-99) Lactic Acid Level 3.0 mmol/L (0.4-2.0) 3.8 mmol/L (0.4-2.0) Calcium Level 9.5 mg/dL (8.5-10.1) Magnesium Level 2.0 mg/dL (1.8-2.4) Total Bilirubin 0.4 mg/dL (0.2-1.0) Aspartate Amino Transf (AST/SGOT) 14 U/L (15-37) Alanine Aminotransferase (ALT/SGPT) 27 U/L (16-63) Alkaline Phosphatase 171 U/L (46-116) Troponin I Quantitative < 0.017 ng/mL (0.000-0.055) Total Protein 7.4 g/dL (6.4-8.2) Albumin 3.7 g/dL (3.4-5.0) Albumin/Globulin Ratio 1.0 (1.0-1.7) Influenza Type A Antigen Negative (NEGATIVE) Influenza Type B Antigen Negative (NEGATIVE) Urine Collection Type Unknown Urine Color Yellow Urine Clarity Clear Urine pH 5.0 (<5.0-8.0) Urine Specific [place] 1.025 (1.000-1.030) Urine Protein 100 mg/dL (NEG-TRACE) Urine Glucose (UA) >=1000 mg/dL (NEG) Urine Ketones (Stick) Negative mg/dL (NEG) Urine Blood Negative (NEG) Urine Nitrite Negative (NEG) Urine Bilirubin Small (NEG) Urine Urobilinogen Dipstick 0.2 mg/dL (0.2 mg/dL) Urine Leukocyte Esterase Negative (NEG) Urine RBC 0 /HPF (0-2) Urine WBC Occ /HPF (0-4) Urine Squamous Epithelial Cells Few /LPF Urine Amorphous Sediment Present /HPF Urine Bacteria 0 /HPF (0-FEW) Urine Hyaline Casts Moderate /HPF Urine Mucus Mod /LPF Test 11/29/19 07:33 11/29/19 09:27 11/29/19 10:51 Glucose (Fingerstick) 219 mg/dL (70-99) 227 mg/dL (70-99) White Blood Count 4.7 x10^3/uL (4.0-11.0) Red Blood Count 3.54 x10^6/uL (4.30-5.70) Hemoglobin 10.5 g/dL (13.0-17.5) Hematocrit 32.1 % (39.0-53.0) Mean Corpuscular Volume 91 fL (79-100) Mean Corpuscular Hemoglobin 30 pg (25-35) Mean Corpuscular Hemoglobin Concent 33 g/dL (31-37) Red Cell Distribution Width 15.1 % (11.5-14.5) Platelet Count 142 x10^3/uL (140-400) Neutrophils (%) (Auto) 65 % (31-73) Lymphocytes (%) (Auto) 27 % (24-48) Monocytes (%) (Auto) 8 % (0-9) Eosinophils (%) (Auto) 1 % (0-3) Basophils (%) (Auto) 0 % (0-3) Neutrophils # (Auto) 3.0 x10^3/uL (1.8-7.7) Lymphocytes # (Auto) 1.3 x10^3/uL (1.0-4.8) Monocytes # (Auto) 0.4 x10^3/uL (0.0-1.1) Eosinophils # (Auto) 0.0 x10^3/uL (0.0-0.7) Basophils # (Auto) 0.0 x10^3/uL (0.0-0.2) Sodium Level 144 mmol/L (136-145) Potassium Level 4.4 mmol/L (3.5-5.1) Chloride Level 110 mmol/L (98-107) Carbon Dioxide Level 24 mmol/L (21-32) Anion Gap 10 (6-14) Blood Urea Nitrogen 16 mg/dL (8-26) Creatinine 1.3 mg/dL (0.7-1.3) Estimated GFR (Cockcroft-Gault) 66.2 Glucose Level 253 mg/dL (70-99) Lactic Acid Level 2.1 mmol/L (0.4-2.0) Calcium Level 8.3 mg/dL (8.5-10.1) Laboratory Tests Test 11/28/19 18:20 11/28/19 18:50 11/28/19 20:20 11/28/19 22:45 White Blood Count 5.3 x10^3/uL (4.0-11.0) Red Blood Count 4.30 x10^6/uL (4.30-5.70) Hemoglobin 12.7 g/dL (13.0-17.5) Hematocrit 39.2 % (39.0-53.0) Mean Corpuscular Volume 91 fL (79-100) Mean Corpuscular Hemoglobin 30 pg (25-35) Mean Corpuscular Hemoglobin Concent 33 g/dL (31-37) Red Cell Distribution Width 15.2 % (11.5-14.5) Platelet Count 157 x10^3/uL (140-400) Neutrophils (%) (Auto) 77 % (31-73) Lymphocytes (%) (Auto) 13 % (24-48) Monocytes (%) (Auto) 10 % (0-9) Eosinophils (%) (Auto) 1 % (0-3) Basophils (%) (Auto) 0 % (0-3) Neutrophils # (Auto) 4.1 x10^3/uL (1.8-7.7) Lymphocytes # (Auto) 0.7 x10^3/uL (1.0-4.8) Monocytes # (Auto) 0.5 x10^3/uL (0.0-1.1) Eosinophils # (Auto) 0.0 x10^3/uL (0.0-0.7) Basophils # (Auto) 0.0 x10^3/uL (0.0-0.2) Prothrombin Time 12.7 SEC (11.7-14.0) Prothromb Time International Ratio 1.0 (0.8-1.1) Activated Partial Thromboplast Time 24 SEC (24-38) Sodium Level 138 mmol/L (136-145) Potassium Level 4.4 mmol/L (3.5-5.1) Chloride Level 104 mmol/L (98-107) Carbon Dioxide Level 23 mmol/L (21-32) Anion Gap 11 (6-14) Blood Urea Nitrogen 21 mg/dL (8-26) Creatinine 2.1 mg/dL (0.7-1.3) Estimated GFR (Cockcroft-Gault) 38.1 BUN/Creatinine Ratio 10 (6-20) Glucose Level 292 mg/dL (70-99) Lactic Acid Level 3.0 mmol/L (0.4-2.0) 3.8 mmol/L (0.4-2.0) Calcium Level 9.5 mg/dL (8.5-10.1) Magnesium Level 2.0 mg/dL (1.8-2.4) Total Bilirubin 0.4 mg/dL (0.2-1.0) Aspartate Amino Transf (AST/SGOT) 14 U/L (15-37) Alanine Aminotransferase (ALT/SGPT) 27 U/L (16-63) Alkaline Phosphatase 171 U/L (46-116) Troponin I Quantitative < 0.017 ng/mL (0.000-0.055) Total Protein 7.4 g/dL (6.4-8.2) Albumin 3.7 g/dL (3.4-5.0) Albumin/Globulin Ratio 1.0 (1.0-1.7) Influenza Type A Antigen Negative (NEGATIVE) Influenza Type B Antigen Negative (NEGATIVE) Urine Collection Type Unknown Urine Color Yellow Urine Clarity Clear Urine pH 5.0 (<5.0-8.0) Urine Specific [place] 1.025 (1.000-1.030) Urine Protein 100 mg/dL (NEG-TRACE) Urine Glucose (UA) >=1000 mg/dL (NEG) Urine Ketones (Stick) Negative mg/dL (NEG) Urine Blood Negative (NEG) Urine Nitrite Negative (NEG) Urine Bilirubin Small (NEG) Urine Urobilinogen Dipstick 0.2 mg/dL (0.2 mg/dL) Urine Leukocyte Esterase Negative (NEG) Urine RBC 0 /HPF (0-2) Urine WBC Occ /HPF (0-4) Urine Squamous Epithelial Cells Few /LPF Urine Amorphous Sediment Present /HPF Urine Bacteria 0 /HPF (0-FEW) Urine Hyaline Casts Moderate /HPF Urine Mucus Mod /LPF Test 11/29/19 07:33 11/29/19 09:27 11/29/19 10:51 Glucose (Fingerstick) 219 mg/dL (70-99) 227 mg/dL (70-99) White Blood Count 4.7 x10^3/uL (4.0-11.0) Red Blood Count 3.54 x10^6/uL (4.30-5.70) Hemoglobin 10.5 g/dL (13.0-17.5) Hematocrit 32.1 % (39.0-53.0) Mean Corpuscular Volume 91 fL (79-100) Mean Corpuscular Hemoglobin 30 pg (25-35) Mean Corpuscular Hemoglobin Concent 33 g/dL (31-37) Red Cell Distribution Width 15.1 % (11.5-14.5) Platelet Count 142 x10^3/uL (140-400) Neutrophils (%) (Auto) 65 % (31-73) Lymphocytes (%) (Auto) 27 % (24-48) Monocytes (%) (Auto) 8 % (0-9) Eosinophils (%) (Auto) 1 % (0-3) Basophils (%) (Auto) 0 % (0-3) Neutrophils # (Auto) 3.0 x10^3/uL (1.8-7.7) Lymphocytes # (Auto) 1.3 x10^3/uL (1.0-4.8) Monocytes # (Auto) 0.4 x10^3/uL (0.0-1.1) Eosinophils # (Auto) 0.0 x10^3/uL (0.0-0.7) Basophils # (Auto) 0.0 x10^3/uL (0.0-0.2) Sodium Level 144 mmol/L (136-145) Potassium Level 4.4 mmol/L (3.5-5.1) Chloride Level 110 mmol/L (98-107) Carbon Dioxide Level 24 mmol/L (21-32) Anion Gap 10 (6-14) Blood Urea Nitrogen 16 mg/dL (8-26) Creatinine 1.3 mg/dL (0.7-1.3) Estimated GFR (Cockcroft-Gault) 66.2 Glucose Level 253 mg/dL (70-99) Lactic Acid Level 2.1 mmol/L (0.4-2.0) Calcium Level 8.3 mg/dL (8.5-10.1) Medications Current Medications Sodium Chloride 1,000 ml @ 1,000 mls/hr 1X ONCE IV Last administered on 11/28/19at 18:30; Start 11/28/19 at 18:15; Stop 11/28/19 at 19:14; Status DC Sodium Chloride 1,000 ml @ 1,000 mls/hr 1X ONCE IV Last administered on 11/28/19at 22:16; Start 11/28/19 at 21:30; Stop 11/28/19 at 22:29; Status DC Sodium Chloride 500 ml @ 500 mls/hr 1X ONCE IV Last administered on 11/28/19at 22:20; Start 11/28/19 at 21:30; Stop 11/28/19 at 22:29; Status DC Ceftriaxone Sodium (Rocephin) 1 gm 1X ONCE IVP Last administered on 11/28/19at 22:19; Start 11/28/19 at 21:30; Stop 11/28/19 at 21:31; Status DC Ondansetron HCl (Zofran) 4 mg PRN Q8HRS PRN IV NAUSEA/VOMITING 1ST CHOICE; Start 11/28/19 at 21:30; Stop 11/28/19 at 22:42; Status DC Sodium Chloride 1,000 ml @ 100 mls/hr Q10H IV Last administered on 11/28/19at 23:52; Start 11/28/19 at 23:00 Ondansetron HCl (Zofran) 4 mg PRN Q4HRS PRN IV NAUSEA/VOMITING 1ST CHOICE; Start 11/28/19 at 22:45 Zolpidem Tartrate (Ambien) 5 mg PRN QHS PRN PO INSOMNIA; Start 11/28/19 at 22:45 Docusate Sodium (Colace) 100 mg PRN BID PRN PO CONSTIPATION 1ST CHOICE; Start 11/28/19 at 22:45 Albuterol Sulfate (Ventolin Neb Soln) 2.5 mg PRN Q4HRS PRN NEB SHORTNESS OF B REATH; Start 11/28/19 at 22:45 Lorazepam (Ativan) 0.5 mg PRN Q4HRS PRN PO ANXIETY / AGITATION; Start 11/28/19 at 22:45 Enoxaparin Sodium (Lovenox 40mg Syringe) 40 mg Q24H SQ Last administered on 11/28/19at 23:53; Start 11/28/19 at 23:00 Atorvastatin Calcium (Lipitor) 80 mg QHS PO ; Start 11/29/19 at 21:00 Pantoprazole Sodium (Protonix) 40 mg DAILYAC PO Last administered on 11/29/19at 09:13; Start 11/29/19 at 07:30 Influenza Virus Vaccine Quadrival (Afluria Quad 2019-20 (3yr Up) Syringe) 0.5 ml ONCE ONCE VAX IM ; Start 11/29/19 at 09:00; Stop 11/29/19 at 09:01; Status DC Active Scripts Active Reported [diabetic med] PO BID Lipitor (Atorvastatin Calcium) 80 Mg Tablet 1 Tab PO HS Glipizide 10 Mg Tablet 1 Tab PO BID Vitals/I & O Vital Sign - Last 24 Hours 11/28/19 11/28/19 11/28/19 11/28/19 17:37 17:56 18:26 18:56 Temp 97.9 97.9 Pulse 90 86 88 86 Resp 20 19 B/P (MAP) 93/52 (66) 91/48 (62) 114/56 (75) 131/60 (83) Pulse Ox 97 97 99 O2 Delivery Room Air Room Air Room Air Room Air 11/28/19 11/28/19 11/28/19 11/28/19 19:26 19:56 20:56 21:56 Pulse 86 88 80 79 Resp 13 B/P (MAP) 143/65 (91) 140/89 (106) 141/76 (97) 134/76 (95) Pulse Ox 97 100 100 100 O2 Delivery Room Air Room Air Room Air Room Air 11/28/19 11/28/19 11/28/19 11/29/19 22:26 23:15 23:54 03:35 Temp 98.5 98.3 98.5 98.3 Pulse 75 79 75 Resp 20 18 B/P (MAP) 143/66 (91) 140/65 (90) 140/68 (92) Pulse Ox 100 99 97 O2 Delivery Room Air Room Air Room Air Room Air 11/29/19 07:19 Temp 98.2 98.2 Pulse 70 Resp 18 B/P (MAP) 158/61 (93) Pulse Ox 98 O2 Delivery Room Air Intake and Output 11/28/19 11/28/19 11/29/19 15:00 23:00 07:00 Intake Total 1000 ml 120 ml Balance 1000 ml 120 ml GLADYS ESPINOZA MD Nov 29, 2019 11:19
[2019-11-29 11:24] VITALS: BP 151/67
[2019-11-29] MEDS: IV NORMAL SALINE 1000ML BAG 1,000 ML IV SCH ×2 (11:49→21:49)
--- NOTE | 2019-11-29 11:50 | NUR ---
SS following for discharge planning. SS reviewed pt chart. Pt is from home and is currently on room air. SS will continue to follow for discharge planning.
[2019-11-29 15:24] VITALS: BP 155/62
--- NOTE | 2019-11-29 18:34 | CARD ---
MR#: [id number] Date of Study: 11/29/2019 Ordering Physician: GLADYS ESPINOZA, Referring Physician: GLADYS ESPINOZA, Tech: Randi Benz APPROVED REPORT EXAM: Two-dimensional and M-mode echocardiogram with Doppler and color Doppler. Other Information Quality : AverageHR: 66bpm INDICATION Syncope RISK FACTORS Diabetes 2D DIMENSIONS Left Atrium(2D)3.4 (1.6-4.0cm)IVSd1.4 (0.7-1.1cm) Aortic Root(2D)3.3 (2.0-3.7cm)LVDd4.4 (3.9-5.9cm) LVOT Diameter2.1 (1.8-2.4cm)PWd0.8 (0.7-1.1cm) LVDs3.0 (2.5-4.0cm)FS (%) 31.9 % SV52.7 ml Aortic Valve AoV Peak Josue.167.3cm/sAoV VTI36.6cm AO Peak GR.11.2mmHgLVOT VTI 22.24cm AO Mean GR.7mmHg Mitral Valve MV E Hpfmstna59.6cm/sMV E Peak Gr.3mmHg MV DECEL [id number] A Gigcenij81.0cm/s MV E Mean Gr.1mmHgE/A Ratio1.0 TDI Lateral E' P. V8.75cm/sMedial E' P. V6.56cm/s E/Lateral E'7.7E/Medial E'10.3 Tricuspid Valve TR P. [id number]/sRAP [id number] TR Peak Gr.[id number] Pulmonary Vein S1 Whlhkqde70.6cm/sS2 Srdrvzfh32.76cm/s D2 Myladrqq91.8cm/sPVa [id number] LEFT VENTRICLE The left ventricle is normal size. There is mild concentric left ventricular hypertrophy. The left ve ntricular systolic function is normal and the ejection fraction is within normal range. The Ejection Fraction is 55-60%. There is normal LV segmental wall motion. Transmitral Doppler flow pattern is Gra de II-pseudonormal filling dynamics. RIGHT VENTRICLE The right ventricle is normal size. There is normal right ventricular wall thickness. The right ventr icular systolic function is normal. ATRIA The left atrium size is normal. The right atrium size is normal. Interatrial septum not well visualiz ed. AORTIC VALVE The aortic valve is mildly thickened. Doppler and Color Flow revealed no significant aortic regurgita tion. There is no significant aortic valvular stenosis. MITRAL VALVE The mitral valve is normal in structure and function. There is no evidence of mitral valve prolapse. There is no mitral valve stenosis. Doppler and Color-flow revealed trace mitral regurgitation. TRICUSPID VALVE The tricuspid valve is normal in structure and function. Doppler and Color Flow revealed trace tricus pid regurgitation with an estimated PAP of 25 mmHg. There is no tricuspid valve stenosis. PULMONIC VALVE The pulmonic valve is not well visualized. Doppler and Color Flow revealed trace pulmonic valvular re gurgitation. GREAT VESSELS The aortic root is normal in size. The IVC is normal in size and collapses >50% with inspiration. PERICARDIAL EFFUSION There is no evidence of significant pericardial effusion. Critical Notification Critical Value: No <Conclusion> The left ventricle is normal size. The left ventricular systolic function is normal and the ejection fraction is within normal range. The Ejection Fraction is 55-60%. There is mild concentric left ventricular hypertrophy. Doppler and Color Flow revealed no significant aortic regurgitation. There is no significant aortic valvular stenosis. Doppler and Color-flow revealed trace mitral regurgitation. Doppler and Color Flow revealed trace tricuspid regurgitation with an estimated PAP of 25 mmHg. Signed by : Vaughn Perkins MD Electronically Approved : 11/29/2019 18:33:54
[2019-11-29] MEDS: glipiZIDE 5 MG TABLET PO SCH (18:43)
[2019-11-29 19:50] VITALS: BP 155/62
[2019-11-29] MEDS: ENOXAPARIN 40 MG/0.4 ML SYRINGE. SQ SCH (20:46)
[2019-11-29] MEDS ORDERED: ATORVASTATIN CALCIUM 40 MG TABLET. PO SCH (21:00)
[2019-11-29 23:30] VITALS: BP 148/58
[2019-11-30 07:30] VITALS: BP 164/43
[2019-11-30] MEDS: IV NORMAL SALINE 1000ML BAG 1,000 ML IV SCH (08:50)
[2019-11-30] MEDS: glipiZIDE 5 MG TABLET PO SCH (10:50)
[2019-11-30] MEDS: PANTOPRAZOLE 40 MG TABLET.DR. PO SCH (10:50)
[2019-11-30 11:41] VITALS: BP 174/42
--- NOTE | 2019-11-30 12:06 | PDOC3 ---
Discharge Summary Visit Information Date of Admission: Nov 28, 2019 Date of Discharge: Nov 30, 2019 Admitting Diagnosis Comment: Acute renal failure secondary to vasomotor etiology most likely Syncopal episode most likely secondary to vasovagal event Moderate to severe dehydration History of dyslipidemia on statin therapy History of diabetes mellitus type 2 [id number] Overweight with a BMI of 28 Final Diagnosis Acute renal failure secondary to vasomotor etiology most likely, now resolved Syncopal episode most likely secondary to vasovagal event Moderate to severe dehydration resolved History of dyslipidemia on statin therapy History of diabetes mellitus type 2 [id number] Overweight with a BMI of 28 Brief Hospital Course Allergies Allergies Coded Allergies Type Severity Reaction Last Updated Verified Penicillins Allergy Intermediate 09/04/18 Yes Vital Signs Vital Signs Date Time Temp Pulse Resp B/P (MAP) Pulse Ox O2 Delivery O2 Flow Rate FiO2 11/30/19 11:41 98.5 89 18 174/42 (86) 98 Room Air 98.5 Lab Results Laboratory Tests Test 11/28/19 18:20 11/28/19 18:50 11/28/19 20:20 11/28/19 22:45 White Blood Count 5.3 x10^3/uL (4.0-11.0) Red Blood Count 4.30 x10^6/uL (4.30-5.70) Hemoglobin 12.7 g/dL (13.0-17.5) Hematocrit 39.2 % (39.0-53.0) Mean Corpuscular Volume 91 fL (79-100) Mean Corpuscular Hemoglobin 30 pg (25-35) Mean Corpuscular Hemoglobin Concent 33 g/dL (31-37) Red Cell Distribution Width 15.2 % (11.5-14.5) Platelet Count 157 x10^3/uL (140-400) Neutrophils (%) (Auto) 77 % (31-73) Lymphocytes (%) (Auto) 13 % (24-48) Monocytes (%) (Auto) 10 % (0-9) Eosinophils (%) (Auto) 1 % (0-3) Basophils (%) (Auto) 0 % (0-3) Neutrophils # (Auto) 4.1 x10^3/uL (1.8-7.7) Lymphocytes # (Auto) 0.7 x10^3/uL (1.0-4.8) Monocytes # (Auto) 0.5 x10^3/uL (0.0-1.1) Eosinophils # (Auto) 0.0 x10^3/uL (0.0-0.7) Basophils # (Auto) 0.0 x10^3/uL (0.0-0.2) Prothrombin Time 12.7 SEC (11.7-14.0) Prothromb Time International Ratio 1.0 (0.8-1.1) Activated Partial Thromboplast Time 24 SEC (24-38) Sodium Level 138 mmol/L (136-145) Potassium Level 4.4 mmol/L (3.5-5.1) Chloride Level 104 mmol/L (98-107) Carbon Dioxide Level 23 mmol/L (21-32) Anion Gap 11 (6-14) Blood Urea Nitrogen 21 mg/dL (8-26) Creatinine 2.1 mg/dL (0.7-1.3) Estimated GFR (Cockcroft-Gault) 38.1 BUN/Creatinine Ratio 10 (6-20) Glucose Level 292 mg/dL (70-99) Lactic Acid Level 3.0 mmol/L (0.4-2.0) 3.8 mmol/L (0.4-2.0) Calcium Level 9.5 mg/dL (8.5-10.1) Magnesium Level 2.0 mg/dL (1.8-2.4) Total Bilirubin 0.4 mg/dL (0.2-1.0) Aspartate Amino Transf (AST/SGOT) 14 U/L (15-37) Alanine Aminotransferase (ALT/SGPT) 27 U/L (16-63) Alkaline Phosphatase 171 U/L (46-116) Troponin I Quantitative < 0.017 ng/mL (0.000-0.055) Total Protein 7.4 g/dL (6.4-8.2) Albumin 3.7 g/dL (3.4-5.0) Albumin/Globulin Ratio 1.0 (1.0-1.7) Influenza Type A Antigen Negative (NEGATIVE) Influenza Type B Antigen Negative (NEGATIVE) Urine Collection Type Unknown Urine Color Yellow Urine Clarity Clear Urine pH 5.0 (<5.0-8.0) Urine Specific [place] 1.025 (1.000-1.030) Urine Protein 100 mg/dL (NEG-TRACE) Urine Glucose (UA) >=1000 mg/dL (NEG) Urine Ketones (Stick) Negative mg/dL (NEG) Urine Blood Negative (NEG) Urine Nitrite Negative (NEG) Urine Bilirubin Small (NEG) Urine Urobilinogen Dipstick 0.2 mg/dL (0.2 mg/dL) Urine Leukocyte Esterase Negative (NEG) Urine RBC 0 /HPF (0-2) Urine WBC Occ /HPF (0-4) Urine Squamous Epithelial Cells Few /LPF Urine Amorphous Sediment Present /HPF Urine Bacteria 0 /HPF (0-FEW) Urine Hyaline Casts Moderate /HPF Urine Mucus Mod /LPF Test 11/29/19 07:33 11/29/19 09:27 11/29/19 10:51 11/29/19 13:00 Glucose (Fingerstick) 219 mg/dL (70-99) 227 mg/dL (70-99) White Blood Count 4.7 x10^3/uL (4.0-11.0) Red Blood Count 3.54 x10^6/uL (4.30-5.70) Hemoglobin 10.5 g/dL (13.0-17.5) Hematocrit 32.1 % (39.0-53.0) Mean Corpuscular Volume 91 fL (79-100) Mean Corpuscular Hemoglobin 30 pg (25-35) Mean Corpuscular Hemoglobin Concent 33 g/dL (31-37) Red Cell Distribution Width 15.1 % (11.5-14.5) Platelet Count 142 x10^3/uL (140-400) Neutrophils (%) (Auto) 65 % (31-73) Lymphocytes (%) (Auto) 27 % (24-48) Monocytes (%) (Auto) 8 % (0-9) Eosinophils (%) (Auto) 1 % (0-3) Basophils (%) (Auto) 0 % (0-3) Neutrophils # (Auto) 3.0 x10^3/uL (1.8-7.7) Lymphocytes # (Auto) 1.3 x10^3/uL (1.0-4.8) Monocytes # (Auto) 0.4 x10^3/uL (0.0-1.1) Eosinophils # (Auto) 0.0 x10^3/uL (0.0-0.7) Basophils # (Auto) 0.0 x10^3/uL (0.0-0.2) Sodium Level 144 mmol/L (136-145) Potassium Level 4.4 mmol/L (3.5-5.1) Chloride Level 110 mmol/L (98-107) Carbon Dioxide Level 24 mmol/L (21-32) Anion Gap 10 (6-14) Blood Urea Nitrogen 16 mg/dL (8-26) Creatinine 1.3 mg/dL (0.7-1.3) Estimated GFR (Cockcroft-Gault) 66.2 Glucose Level 253 mg/dL (70-99) Lactic Acid Level 2.1 mmol/L (0.4-2.0) 1.6 mmol/L (0.4-2.0) Calcium Level 8.3 mg/dL (8.5-10.1) Troponin I Quantitative < 0.017 ng/mL (0.000-0.055) Test 11/29/19 16:22 11/29/19 21:02 11/29/19 23:45 11/30/19 07:42 Glucose (Fingerstick) 153 mg/dL (70-99) 132 mg/dL (70-99) 130 mg/dL (70-99) Urine Random Creatinine 34.7 mg/dL (Not Establ.) Test 11/30/19 10:34 Glucose (Fingerstick) 216 mg/dL (70-99) Laboratory Tests Test 11/29/19 13:00 11/29/19 16:22 11/29/19 21:02 11/29/19 23:45 Lactic Acid Level 1.6 mmol/L (0.4-2.0) Glucose (Fingerstick) 153 mg/dL (70-99) 132 mg/dL (70-99) Urine Random Creatinine 34.7 mg/dL (Not Establ.) Test 11/30/19 07:42 11/30/19 10:34 Glucose (Fingerstick) 130 mg/dL (70-99) 216 mg/dL (70-99) Brief Hospital Course Patient is a 69-year-old male who was in his usual state of health until this m orning when he went to the bathroom. The patient felt lightheaded while trying to have a bowel movement which of note has been diarrhea. The patient had been constipated earlier in the week and he took some laxatives which prompted his current bout of diarrhea. Patient lowered himself to the ground and lost consciousness proximately 30 seconds he says with no postictal period. The patient denies slurred speech no headache blurred vision no dysphagia odynophagia patient has no abdominal discomfort, the patient denies hematemesis or hematochezia he denies sensation of impending doom no chest pain or palpitations reported prior to the event. No visual or auditory scotoma. Is being admitted at the request of the ER for evaluation and observation Patient did not have acute events during his hospital stay, ECHO and Careotids were done with normal results. Patient in good spirits to be discharged home today. i have encoruaged him to follow up with his primary care physician Physical exam GEN.: No apparent distress. Alert and oriented. HEENT: Head is normocephalic, atraumatic NECK: Supple. LUNGS: Clear to auscultation. HEART: RRR, S1, S2 present. Peripheral pulses intact ABDOMEN: Soft, nontender. Positive bowel sounds. EXTREMITIES: Without any cyanosis. NEUROLOGIC: Normal speech, normal tone PSYCHIATRIC: Normal affect, normal mood. SKIN: No ulcerations Assessment Assessment ECHO <Conclusion> The left ventricle is normal size. The left ventricular systolic function is normal and the ejection fraction is within normal range. The Ejection Fraction is 55-60%. There is mild concentric left ventricular hypertrophy. Doppler and Color Flow revealed no significant aortic regurgitation. There is no significant aortic valvular stenosis. Doppler and Color-flow revealed trace mitral regurgitation. Doppler and Color Flow revealed trace tricuspid regurgitation with an estimated PAP of 25 mmHg. Signed by : Vaughn Perkins MD Electronically Approved : 11/29/2019 18:33:54 EXAM: Carotid Doppler sonogram. HISTORY: Syncope. TECHNIQUE: Lacey scale and color Doppler sonographic evaluation of the neck with spectral waveform analysis was performed and static images are submitted for review. FINDINGS: There is mild echogenic plaque within the carotid bifurcations. The peak systolic velocity within the right common carotid artery is 84 cm/sec. The peak systolic velocity within the right internal carotid artery is 152 cm/sec and the end diastolic velocity within the right internal carotid artery is 33 cm/sec. The right ICA/CCA ratio is 1.8. The peak systolic velocity within the left common carotid artery is 104 cm/sec. The peak systolic velocity within the left internal carotid artery is 94 cm/sec and the end diastolic velocity within the left internal carotid artery is 29 cm/sec. The left ICA/CCA ratio is 1.1. There is normal antegrade flow within both vertebral arteries. IMPRESSION: 1. Elevated peak systolic velocity within the right ICA, suggesting 50-69 percent stenosis. 2. No Doppler evidence of hemodynamically significant stenosis involving the left ICA. Discharge Information Condition at Discharge: Improved Follow Up: Weeks Disposition/Orders: D/C to Home Scheduled Atorvastatin Calcium (Lipitor) 80 Mg Tablet, 1 TAB PO HS for cholesterol, #30 Ref 5 (Reported) Entered as Reported by: MIKEY SCOTT on 08/30/18 0835 Last Action: Reviewed on 11/28/192346 by DIONISIO ANAND Glipizide (Glipizide) 10 Mg Tablet, 1 TAB PO BID for DM, #60 Ref 5 (Reported) Entered as Reported by: MIKEY SCOTT on 08/30/18 0835 Last Action: Converted on 11/29/191656 by ALFA LIAO RN [diabetic med] , PO BID, (Reported) Entered as Reported by: DIONISIO ANAND on 11/29/19746 Last Taken: Unknown Dose on Unknown Date & Time Last Action: New Order on 11/29/19746 by GLADYS DUMONT MD Nov 30, 2019 12:06
[2019-11-30 12:21] LABS: CALCIUM 8.4 mg/dL (8.5-10.1); GFR 89.6; MAGNESIUM 1.6 mg/dL (1.8-2.4); POTASSIUM 3.6 mmol/L (3.5-5.1)
--- NOTE | 2019-11-30 13:31 | NUR ---
Manually administered patient morning medications due to scheduled down time until about 1230. Paper MAR in paper chart.
--- NOTE | 2019-11-30 14:15 | NUR ---
Discharge Note: Patient was discharged home with self care with son. Patients IV were discontinued without any complications per RN. Patients son at the bedside at the time of discharge education. Patient and son received discharge summary/instructions, follow-ups, and educational material. Patient and son did not have any further questions or concerns. Patent was taken down to the ER entrance via wheelchair with all personal belongings, accompanied by MEAGAN Barrett, where son was waiting to take him home.
[2019-11-30 16:09] LABS: UR POTASSIUM 12.6 mmol/L (Not Estab.)
== END 2019-11-30 14:00 | disposition home or self-care (01) | DRG 640 ==
LOC: ER 17:37 → 6 SOUTH 21:12
PROVIDERS: ADMIT Internal Medicine; ATTEND Internal Medicine
DX: E86.0 Dehydration (principal); N17.0 Acute kidney failure with tubular necrosis; K52.9 Noninfective gastroenteritis and colitis, unspecified; E87.2 Acidosis; E11.9 Type 2 diabetes mellitus without complications; E78.5 Hyperlipidemia, unspecified; I11.9 Hypertensive heart disease without heart failure; I95.9 Hypotension, unspecified; Z82.49 Family history of ischemic heart disease and other diseases of the circulatory system; Z86.73 Personal history of transient ischemic attack (TIA), and cerebral infarction without residual deficits; Z87.891 Personal history of nicotine dependence; M19.90 Unspecified osteoarthritis, unspecified site; Z68.28 Body mass index [BMI] 28.0-28.9, adult; Z88.0 Allergy status to penicillin
CPT/HCPCS: 36415; 71045; 80048; 80053; 81001; 82436; 82570; 82962; 83605; 83735; 84133; 84300; 84484; 85025; 85610; 85730; 87804; 90471; 90686; 93005; 93306; 93880; J0696; J1650; J7030; J7040; G0378

== ENCOUNTER 2020-12-26 22:58 | Emergency (ER) | payer MEDICARE ==
[~2020-12-26] VITALS: Ht 177.8 cm; Wt 88.6 kg
[~2020-12-26 22:58] MED LIST changes: +diabetic med PO
--- NOTE | 2020-12-26 23:23 | PHYS DOC ---
Past Medical History Past Medical History: A-Fib, Bipolar, CAD, Cancer (Large instestine), Dementia, Diabetes-Type II, GERD, High Cholesterol, Hypertension, [place], Pneumonia, Renal Disease Past Medical History Limited secondary to dementia. Past Surgical History: Other Additional Past Surgical Histo: edgar-colectomy Past Surgical History Limited secondary to dementia. Smoking Status: Former Smoker Alcohol Use: None Drug Use: None Social History Limited secondary to dementia. General Adult EDM: Chief Complaint: RECTAL BLEED HPI: HPI: Patient is a 70 year old male presents via EMS for rectal bleeding that began this afternoon at detention ([facility]). History of hemicolectomy for colon cancer on December 17, 2020 at the [place] under care of Dr. Holden. The detention called EMS after they saw that he had to "diapers with muriel blood". The patient is not a good historian as he has a history of dementia. Denies pain. Denies nausea or vomiting. Denies trauma. History of present illness limited secondary to dementia. Review of Systems: Review of Systems: Constitutional: Denies fever or chills GI: Denies abdominal pain, nausea, or vomiting; reports diarrhea and melena Review of systems limited secondary to dementia. Heart Score: C/O Chest Pain: N/A Allergies: Allergies: Allergies Coded Allergies Type Severity Reaction Last Updated Verified Penicillins Allergy Intermediate 09/04/18 Yes Physical Exam: PE: Constitutional: Well developed, no acute distress, non-toxic appearance HENT: Normocephalic, atraumatic Eyes: Conjunctiva normal, no discharge Neck: Normal range of motion, supple Lungs & Thorax: No respiratory distress, equal chest rise and fall Abdomen: Soft, no tenderness, no guarding/rebound tenderness Skin: Warm, dry, no erythema, no rash Back: No tenderness, no CVA tenderness Extremities: No tenderness, ROM intact, no edema Neurologic: Alert, no focal deficits noted Rectal: Muriel melena with clot noted, no hemorrhoids felt or seen externally EKG: EKG: [] Radiology/Procedures: Radiology/Procedures: PROCEDURE: CT ABD PELV W/ IV CONTRST ONLY CT SCAN OF THE ABDOMEN AND PELVIS WITH IV CONTRAST. History: Reason: hematochezia, hx of recent colectomy, OMNI 300, 75 ML IV / Spl. Instructions: / History: Comparison:None. Procedure: Contiguous axial images of the abdomen and pelvis were performed after the administration of 75 cc of Omni 300 IV contrast. Oral contrast: No. Findings: There is mild pleural effusion and patchy infiltrate in the right lung base. There is free fluid and free air under the diaphragm on the right. There is enhancing soft tissue density in the abdominal wall anteriorly on the left that measures 5.6 x 4.0 cm. There has been a right hemicolectomy. There is multiple mildly distended air-filled loops of large and small bowel. Liver: Multiple small hypoattenuating lesions in liver too small to characterize but could be cysts Spleen: Unremarkable Pancreas: Unremarkable Adrenal Glands: Unremarkable Kidneys: Unremarkable There is no mass or lymphadenopathy. The urinary bladder appears normal. There is air in the abdominal wall anteriorly especially in the right lower quadrant. Impression: 1. Mild pleural effusion and pulmonary infiltrates right lung base, likely discoid atelectasis. 2. Status post right hemicolectomy. 3. Soft tissue masslike process in the left anterior abdominal wall is likely a hematoma. 4. Mild ileus. 5. Air and free fluid under the diaphragm could be postsurgical. End impression PQRS Compliance Statement: One or more of the following individualized dose reduction techniques were utilized for this examination: 1. Automated exposure control 2. Adjustment of the mA and/or kV according to patient size 3. Use of iterative reconstruction technique Electronically signed by: Minog Yanez III, MD (12/27/2020 12:24 AM) [facility] Course & Med Decision Making: Course & Med Decision Making 70-year-old male presents emergency department via EMS from a detention after having multiple blood in his briefs. Patient did have a hemicolectomy operation a week ago at the [facility]. On physical exam there was muriel melana noted. CT imaging was done and did show free air under the diaphragm which could have been from the recent operation and also there was potential hematoma in the abdomen as well. On physical exam the patient was not tenderness abdomen or had any other complaints. Labs obtained and posted to chart. Hemoglobin down to 7.8 from 10.5 on 11/29/19 per [employer] review. Concern for postoperative hemorrhage. Patient with additional episode of melena during ED evaluation. Patient requiring transfer back to [place] for admission and for further surgical ev aluation and treatment. Discussed with Zahira TSE, washhouse hand, regarding transfer. Zahira TSE requests rapid COVID testing and faxing laboratory and radiological studies as well as ED note. Dr. Bc Lane (ED) accepting of transfer to [facility], ED to ED. Discussed findings and plan with patient, who acknowledges understanding and agreement. Lorenza Disclaimer: Lorenza Disclaimer: This electronic medical record was generated, in whole or in part, using a voice recognition dictation system. Departure Departure Impression: Primary Impression: Acute GI bleeding Additional Impressions: History of hemicolectomy Anemia Qualified Codes: D64.9 - Anemia, unspecified Elevated LFTs Disposition: 02 DC/TRF OTHER SHORT TERM HOS ([place]) Condition: STABLE Referrals: YANETH DIAZ (PCP) OSWALD SENIOR DO Dec 26, 2020 23:23
[2020-12-26 23:31] LABS: BASO % 0 % (0-3); EOS % 1 % (0-3); HEMATOCRIT 24.1 % (39.0-53.0); HEMOGLOBIN 7.8 g/dL (13.0-17.5); LYMPH # 0.9 x10^3/uL (1.0-4.8); LYMPH % 10 % (24-48); MEAN CORPUSCULAR HEMOGLOBIN 23 pg (25-35); MEAN CORPUSCULAR HGB CONC 32 g/dL (31-37); MEAN CORPUSCULAR VOLUME 70 fL (79-100); MONO # 0.6 x10^3/uL (0.0-1.1); MONO % 6 % (0-9); NEUT # 7.8 x10^3/uL (1.8-7.7); NEUT % 83 % (31-73); PLATELET COUNT 286 x10^3/uL (140-400); RED BLOOD COUNT 3.44 x10^6/uL (4.30-5.70); RED CELL DISTRIBUTION WIDTH 31.4 % (11.5-14.5); WHITE BLOOD COUNT 9.4 x10^3/uL (4.0-11.0)
[2020-12-26 23:38] LABS: CREATININE 1.2 mg/dL (0.7-1.3); GFR 72.4; POTASSIUM 3.4 mmol/L (3.5-5.1)
[2020-12-26 23:40] LABS: PROTHROMBIN TIME PATIENT 14.3 SEC (11.7-14.0)
[2020-12-26 23:43] LABS: PLT ESTIMATE ADEQUATE (ADEQUATE)
[2020-12-26 23:44] LABS: ALBUMIN 1.9 g/dL (3.4-5.0); ALBUMIN/GLOBULIN RATIO 0.4 (1.0-1.7); MAGNESIUM 2.2 mg/dL (1.8-2.4); TOTAL BILIRUBIN 0.5 mg/dL (0.2-1.0); TOTAL PROTEIN 6.2 g/dL (6.4-8.2)
[2020-12-26] MEDS ORDERED: CONTRAST GIVEN. MC PRN (23:45)
[2020-12-26] MEDS ORDERED: IV NORMAL SALINE 1000ML BAG 1,000 ML IV ONE (23:45)
[2020-12-26 23:48] LABS: HYPOCHROMIA MOD
[2020-12-26 23:49] LABS: ANISOCYTOSIS MARKED; MICROCYTOSIS MOD; POIKILOCYTOSIS SLIGHT; SCHISTOCYTES OCC
[2020-12-26 23:50] LABS: OVALOCYTES FEW; TARGET CELLS PRESENT
[2020-12-27] MEDS ORDERED: IOHEXOL 300 MG/ML 100ML VIAL. IV ONE
--- NOTE | 2020-12-27 00:26 | RAD ---
CT SCAN OF THE ABDOMEN AND PELVIS WITH IV CONTRAST. History: Reason: hematochezia, hx of recent colectomy, OMNI 300, 75 ML IV / Spl. Instructions: / Hi story: Comparison:None. Procedure: Contiguous axial images of the abdomen and pelvis were performed after the administration of 75 cc o f Omni 300 IV contrast. Oral contrast: No. Findings: There is mild pleural effusion and patchy infiltrate in the right lung base. There is free fluid and free air under the diaphragm on the right. There is enhancing soft tissue density in the abdominal wall anteriorly on the left that measures 5.6 x 4.0 cm. There has been a right hemicolectomy. There is multiple mildly distended air-filled loops of large and small bowel. Liver: Multiple small hypoattenuating lesions in liver too small to characterize but could be cysts Spleen: Unremarkable Pancreas: Unremarkable Adrenal Glands: Unremarkable Kidneys: Unremarkable There is no mass or lymphadenopathy. The urinary bladder appears normal. There is air in the abdominal wall anteriorly especially in the r ight lower quadrant. Impression: 1. Mild pleural effusion and pulmonary infiltrates right lung base, likely discoid atelectasis. 2. Status post right hemicolectomy. 3. Soft tissue masslike process in the left anterior abdominal wall is likely a hematoma. 4. Mild ileus. 5. Air and free fluid under the diaphragm could be postsurgical. End impression PQRS Compliance Statement: One or more of the following individualized dose reduction techniques were utilized for this examinat ion: 1. Automated exposure control 2. Adjustment of the mA and/or kV according to patient size 3. Use of iterative reconstruction technique Electronically signed by: Mingo Yanez III, MD (12/27/2020 12:24 AM) [facility]
[2020-12-27] MEDS ORDERED: PANTOPRAZOLE IV PUSH 40 MG VIAL. IVP ONE (03:30)
[2020-12-27 04:40] VITALS: BP 177/81
--- NOTE | 2020-12-28 09:18 | NUR ---
IP: Notified IPBryanna, of negative COVID test. Results faxed to [phone].
--- NOTE | 2020-12-28 13:21 | NUR ---
IP note: Call placed to pt at [phone] to notify of negative COVID19 test results. Message left on voicemail requesting return call/verification of to receive results.
== END 2020-12-27 06:00 | disposition short-term general hospital (02) ==
LOC: ER 22:58
DX: K92.2 Gastrointestinal hemorrhage, unspecified (principal); Z20.822 Contact with and (suspected) exposure to COVID-19; D64.9 Anemia, unspecified; I48.20 Chronic atrial fibrillation, unspecified; E11.9 Type 2 diabetes mellitus without complications; K21.9 Gastro-esophageal reflux disease without esophagitis; E78.00 Pure hypercholesterolemia, unspecified; I25.2 Old myocardial infarction; I11.9 Hypertensive heart disease without heart failure; Z98.890 Other specified postprocedural states; Z87.891 Personal history of nicotine dependence; Z90.89 Acquired absence of other organs
CPT/HCPCS: 36415; 74177; 80053; 83690; 83735; 85025; 85610; 85730; 87426; 96361; 96374; 99285; C9113; C9803; J7030; Q9967; U0003; U0005